=== PATIENT | female | born 1945 | race Hispanic/Latino ===

== ENCOUNTER 2022-03-01 09:46 | Observation (INO) | payer MEDICARE, OTHER ==
--- OUTSIDE RECORDS SUMMARY | 2022-03-01 09:49 | XMS REPORT | Continuity of Care Document ---
:1945 Author Organization [facility] t Address [address] [place] [address] Care Team Providers Name Role Phone Macario Attending Clinician Unavailable Macario Admitting Clinician Unavailable Payers Payer Name Policy Type Policy Number Effective Date Expiration Date [facility] FINXI [id number] 2021 (MEDICARE 00:00:00 REPLACEMENT HMO) [facility] [id number] (MEDICARE REPLACEMENT/[place] GE - PPO) Problems Condition Condition Condition Status Onset Resolution Last Treating Co mments Source Name Details Category Date Date Treatment Clinician Date Gastroesop Gastroeso Problem Active 2021-04-03 Memoria hageal phageal 02:49:21 l reflux reflux Jie disease disease without without esophagiti esophagiti s s Active Problem 04/03/2021 [facility] Other Other Problem Active 2021-04-03 Memor ia chronic chronic 02:49:21 l pain pain [place] Active Problem 04/03/2021 [facility] Insomnia, Insomnia, Problem Active 2021-04-03 Memoria unspecifie unspecifie 02:49:21 l d type d type [place] Active Problem 04/03/2021 [facility] Unspecifie Unspecifi Problem Active 2021-04-03 Memoria d cardiac ed cardiac 02:49:21 l device in device in Herm lynette situ situ Active Problem 04/03/2021 [facility] Thyroid Thyroid Problem Active 2021-04-03 Me moria mass mass 02:49:21 l Active [place] Problem 04/03/2021 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 02:49:21 l artery, artery, [place] unspecifie unspecifie d d laterality laterality Active Problem 04/03/2021 [facility] Malignant Malignant Problem Active 2021-04-03 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:49:21 l heart heart Jie disease, disease, w/o CHF, w/o CHF, with with chronic chronic kidney kidney disease disease Active Problem 04/03/2021 [facility] Status Status Problem Active 2021-04-03 Terrell jacqueline post post 02:49:21 l gastric gastric [place] bypass for bypass for obesity obesity Active Problem 04/03/2021 [facility] Presence Presence Problem Active 2021-04-03 Memoria of of 02:49:21 l coronary coronary Arash n angioplast angioplast y implant y implant and graft and graft Active Problem 04/03/2021 [facility] Syncope, Syncope, Problem Active 2021-04-03 Memoria unspecifie unspecifie 02:49:21 l d syncope d syncope Herm lynette type type Active Problem 04/03/2021 [facility] Status Status Problem Active 2021-04-03 Terrell jacqueline post post 02:49:21 l placement placement Herm lynette of of implantabl implantabl e loop e loop recorder recorder Active Problem 04/03/2021 [facility] 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 without without angina angina pectoris pectoris Active Problem 04/03/2021 [facility] Closed Closed Diagnosis Active 2019-10-13 Me moria fracture fracture 02:51:16 l of of Jie multiple multiple ribs of ribs of left side, left side, initial initial encounter encounter Active Diagnosis 10/13/2019 [facility] Vitamin D Vitamin D Problem Active 2021-04-03 Memoria deficiency deficiency 02:49:21 l Active Jie Problem 04/03/2021 [facility] Borderline Borderlin Problem Active 2021-04-03 Memoria hyperchole e 02:49:21 l sterolemia hyperchole He rmann sterolemia Active Problem 04/03/2021 [facility] Encounter Encounter Problem Active 2021-04-03 Memoria for for 02:49:21 l general general [place] adult adult medical medical examinatio examinatio n without n without abnormal abnormal findings findings Active Problem 04/03/2021 [facility] B12 B12 Diagnosis Active 2021-04-03 Mem oria deficiency deficiency 02:49:21 l Active [place] Diagnosis 04/03/2021 [facility] Skin Skin Diagnosis Active 2019-10-13 Mem oria lesion lesion 02:48:47 l Active [place] Diagnosis 10/13/2019 [facility] Cerumen Cerumen Diagnosis Active 2020-12-21 Memoria impaction impaction 02:45:33 l Active [place] Diagnosis 12/21/2020 [facility] Abnormal Abnormal Diagnosis Active 2020-12-21 Memoria EKG EKG Active 02:45:33 l Diagnosis Arash n 12/21/2020 [facility] Foot Foot Diagnosis Active 2020-12-21 Mem oria swelling swelling 02:48:06 l Active Jie Diagnosis 12/21/2020 [facility] Tremor Tremor Diagnosis Active 2020-12-21 Me moria Active 02:48:06 l Diagnosis Jie 12/21/2020 [facility] Hospital Hospital Diagnosis Active 2019-10-13 Memoria discharge discharge 02:51:16 l follow-up follow-up Herm lynette Active Diagnosis 10/13/2019 [facility] Low back Low back Diagnosis Active 2020-11-03 Memoria pain pain 02:46:29 l Active [place] Diagnosis 11/03/2020 [facility] Encounter Diagnosis Active 2018-11-24 Memoria to Encounter 02:46:13 l establish to [place] care establish care Active Diagnosis 11/24/2018 [facility] Nausea Nausea Diagnosis Active 2018-11-25 Me moria Active 02:49:53 l Diagnosis Jie 11/25/2018 [facility] Left hip Left hip Diagnosis Active 2018-11-25 Memoria pain pain 02:48:04 l Active [place] Diagnosis 11/25/2018 [facility] Left knee Left knee Diagnosis Active 2018-11-25 Memoria pain, pain, 02:48:04 l unspecifie unspecifie He rmlynette d d chronicity chronicity Active Diagnosis 11/25/2018 [facility] Encounter Encounter Diagnosis Active 2019-10-11 Memoria for for 02:58:10 l screening screening Herm lynette for for malignant malignant neoplasm neoplasm of colon of colon Active Diagnosis 10/11/2019 [facility] At risk At risk Diagnosis Active 2019-10-11 Memoria for bone for bone 02:58:10 l density density Jie loss loss Active Diagnosis 10/11/2019 [facility] Insect Insect Diagnosis Active 2020-11-03 Me moria bite bite 02:45:56 l Active Jie Diagnosis 11/03/2020 [facility] Exposure Exposure Diagnosis Active 2020-11-02 Memoria to SARS to SARS 02:45:26 l virus virus [place] Active Diagnosis 11/02/2020 [facility] Screening Screening Diagnosis Active 2020-11-03 Memoria for for 02:46:29 l diabetes diabetes Arash n mellitus mellitus Active Diagnosis 11/03/2020 [facility] Encounter Encounter Diagnosis Active 2020-11-03 Memoria for for 02:46:29 l screening screening Herm lynette mammogram mammogram for breast for breast cancer cancer Active Diagnosis 11/03/2020 [facility] Encounter Encounter Diagnosis Active 2020-11-03 Memoria for for 02:46:29 l vaccinatio vaccinatio He rmann n n Active Diagnosis 11/03/2020 [facility] Essential Essential Diagnosis Active 2021-04-03 Memoria hypertensi hypertensi 02:49:21 l on on Active Jie Diagnosis 04/03/2021 [facility] Allergies, Adverse Reactions, Alerts Allergy Allergy Status Severity Reaction(s) Onset Inactive Treating Comm ents Source Name Type Date Date Clinician Sulfur Sulfur Active Info Not Memoria Available - l 00:00: Jie 00 Pentazoc Pentazoc Active Info Not Terrell jacqueline ine-APAP ine-APAP Available - l 00:00: Jie 00 Penicill Penicill Active Info Not Terrell jacqueline in V in V Available 12-01 l Potassiu Potassiu 00:00: Arash molina m m Butalbit Butalbit Active Info Not Terrell jacqueline al-APAP- al-APAP- Available 12-01 l Caffeine Caffeine 00:00: Arash n 00 Tramadol Tramadol Active Info Not Terrell jacqueline HCl HCl Available 03-12 l 00:00: Codeine Codeine Active Info Not Memori a Sulfate Sulfate Available 03-12 l 00:00: Medications Ordered Filled Start Stop Current Ordering Indication Dosage Frequency Signature Comments Components Source Medication Medication Date Date Medication? Clinician (SIG) Name Name Zoljeffdem 2020-07 Yes Niraj 1 tablet Terrell jacqueline Tartrate ER 0-03 Felipe at bedtime l 02:49: as needed Lisinopril 2020-07 Yes Niraj 1 tablet Me moria 0-03 Felipe l 02:49: Carvedilol 2020-07 Yes Niraj 1 tablet Me moria 0-03 Felipe l 02:49: Trazodone 2020-07 Yes Niraj 1-2 tablet M emoria HCl 0-03 Felipe at bedtime l 02:49: as needed NIFEdipine 2020-07 Yes Niraj 1 tablet Me moria ER 0-03 Felipe on an l 02:49: empty stomach Pantoprazol 2020-07 Yes Niraj 1 tablet M emoria e Sodium 0-03 Felipe l 02:49: Tramadol 2020-07 Yes Niraj 1 tablet Terrell jacqueline HCl 0-03 Felipe as needed l 02:49: CloNIDine 2020-07 Yes Niraj Apply 1 Terrell jacqueline 0-03 Felipe patch to l 02:49: the skin once a week Clonidine 2020-07 Yes Niraj 1 patch to M emoria HCl 0-03 Felipe skin l 02:49: [place] 21 Aspirin 2020-07 Yes Niraj 1 tablet Memor ia Adult Low 0-03 Felipe l Dose 02:49: Jie 21 Vitamin D3 Yes Niraj 2 tablets M emoria 6-22 Felipe l 02:45: Jie 33 Cyanocobala 2020-0 Yes Niraj inject 1 M emoria min 5-28 Felipe ml l 00:00: Hydrocodone 2020-0 Yes Niraj 1/2-1 Terrell jacqueline -Acetaminop 4-03 Felipe tablet as l hen 00:00: needed Tizanidine 2020-0 Yes Niraj 1 tablet Me moria HCl 4-03 Felipe as needed l 00:00: Vitamin D3 2020-0 Yes Niraj 2 tablets M emoria 3-17 Felipe l 00:00: Hydrocodone 2020-0 Yes Niraj 1 tablet M emoria -Acetaminop 8-11 Felipe as needed l hen 00:00: Lidocaine 2019-0 Yes Niraj as Memoria Pain Relief 8-11 Felipe directed l 00:00: Acetaminoph 2019-0 Yes Yumiko 1 tablet Me moria en-Codeine 4-13 G[place] as needed l #3 02:51: Jie 16 Pantoprazol 2020-0 Yes Yumiko 1 tablet Me moria e Sodium 4-13 Gannon l 02:51: [place] 16 Trazodone 2020-0 Yes Yumiko 1-2 tablet Me moria HCl 4-13 Gannon at bedtime l 02:51: as needed Jie 16 Lisinopril 2020-0 Yes Yumiko 1 tablet Mem oria 4-13 Gannon l 02:51: Jie 16 Cyanocobala 2020-0 Yes Yumiko 1 ml Memori a min 4-13 Gannon l 02:48: Jie 47 Tizanidine 2020-0 Yes Yumiko 1 tablet Mem oria HCl 4-11 Gannon as needed l 02:58: Jie 10 Cyanocobala 2020-0 Yes Yumiko 1 ml Memori a min 1-26 Gannon l 00:00: Acetaminoph 2018-1 Yes Yumiko 1 tablet Me moria en-Codeine 1-06 [place] as needed l #3 00:00: Triamcinolo 2019-0 Yes Niraj 1 Memor ia ne 9-11 Felipe applicatio l Acetonide 00:00: n to affected area Tizanidine 2019-0 Yes Yumiko 1 tablet Mem oria HCl 7-20 [place] as needed l 00:00: Tramadol 2019-0 Yes Yumkio 1 tablet Memor ia HCl 6-20 [place] as needed l 00:00: Tizanidine 2019-0 Yes Yumiko 1 tablet Mem oria HCl 5-18 [place] as needed l 00:00: Tramadol 2019-0 Yes Yumiko 1 tablet Memor ia HCl 5-17 [place] as needed l 00:00: Tramadol 2019-0 Yes Yumiko 1 tablet Memor ia HCl 4-25 [place] as needed l 00:00: Tramadol 2019-0 Yes Yumiko 1 tablet Memor ia HCl 3-07 [place] as needed l 00:00: Pantoprazol 2019-0 Yes Yumiko 1 tablet Me moria e Sodium 2-25 Gannon l 00:00: Immunizations Ordered Immunization Filled Immunization Date Status Commen ts Source Name Name High Dose Influenza 2020-02-27 Completed Memor ial (65 and above) 00:00:00 [place] Tdap 2020-02-27 Completed [facility] 00:00:00 [place] Vital Signs Vital Name Observation Time Observation Value Comments Source Weight 2020-12-01 19:00:00 [facility] Height 2020-12-01 19:00:00 [facility] Jie Diastolic (mm Hg) 2020-12-01 19:00:00 [facility] orial [place] Systolic (mm Hg) 2020-12-01 19:00:00 Terrell rial Jie Weight 2020-10-25 15:30:00 [facility] Height 2020-10-25 15:30:00 [facility] Jie Diastolic (mm Hg) 2020-10-25 15:30:00 Mem orial Jie Systolic (mm Hg) 2020-10-25 15:30:00 Terrell rial [place] Systolic (mm Hg) 2020-05-18 20:00:00 Terrell rial Jie Weight 2020-05-18 20:00:00 [facility] Height 2020-05-18 20:00:00 [facility] Temperature Oral (F) 2020-05-18 20:00:00 97.9 F [facility] [place] Heart Rate 2020-05-18 20:00:00 [facility] [place] Diastolic (mm Hg) 2020-05-18 20:00:00 Mem orial Jie Weight 2020-03-03 15:10:00 [facility] J[place] Height 2020-03-03 15:10:00 [facility] [place] Weight 2020-02-27 15:00:00 [facility] J[place] Height 2020-02-27 15:00:00 [facility] [place] Temperature Oral (F) 2020-02-27 15:00:00 98.1 F [facility] [place] Heart Rate 2020-02-27 15:00:00 [facility] Jie Diastolic (mm Hg) 2020-02-27 15:00:00 Mem orial Jie Systolic (mm Hg) 2020-02-27 15:00:00 Terrell rial [place] Weight 2020-02-10 15:40:00 [facility] Jie Height 2020-02-10 15:40:00 [facility] J[place] Temperature Oral (F) 2020-02-10 15:40:00 98.0 F [facility] [place] Heart Rate 2020-02-10 15:40:00 [facility] [place] Diastolic (mm Hg) 2020-02-10 15:40:00 Mem orial [place] Systolic (mm Hg) 2020-02-10 15:40:00 Terrell rial [place] Weight 2019-04-28 19:00:00 [facility] [place] Height 2019-04-28 19:00:00 [facility] [place] Heart Rate 2019-04-28 19:00:00 [facility] [place] Diastolic (mm Hg) 2019-04-28 19:00:00 Mem orial Jie Systolic (mm Hg) 2019-04-28 19:00:00 Terrell rial [place] Weight 2019-03-12 19:40:00 [facility] Jie Height 2019-03-12 19:40:00 [facility] [place] Temperature Oral (F) 2019-03-12 19:40:00 97.8 F [facility] J[place] Heart Rate 2019-03-12 19:40:00 [facility] [place] Diastolic (mm Hg) 2019-03-12 19:40:00 Mem orial Jie Systolic (mm Hg) 2019-03-12 19:40:00 Terrell rial [place] Weight 2018-12-26 19:40:00 [facility] [place] Height 2018-12-26 19:40:00 [facility] [place] Heart Rate 2018-12-26 19:40:00 [facility] Jie Diastolic (mm Hg) 2018-12-26 19:40:00 Mem orial Jie Systolic (mm Hg) 2018-12-26 19:40:00 Terrell rial [place] Weight 2018-11-18 16:20:00 [facility] Jie Height 2018-11-18 16:20:00 [facility] [place] Temperature Oral (F) 2018-11-18 16:20:00 97.1 F [facility] Jie Heart Rate 2018-11-18 16:20:00 [facility] Jie Diastolic (mm Hg) 2018-11-18 16:20:00 Mem orial [place] Systolic (mm Hg) 2018-11-18 16:20:00 Terrell rial Jie Weight 2018-10-17 19:00:00 [facility] Jie Height 2018-10-17 19:00:00 [facility] Jie Heart Rate 2018-10-17 19:00:00 [facility] Jie Diastolic (mm Hg) 2018-10-17 19:00:00 Mem orial [place] Systolic (mm Hg) 2018-10-17 19:00:00 Terrell rial Jie Weight 2018-08-30 16:00:00 [facility] Jie Height 2018-08-30 16:00:00 [facility] Jie Temperature Oral (F) 2018-08-30 16:00:00 98.1 F [facility] Jie Heart Rate 2018-08-30 16:00:00 [facility] Jie Diastolic (mm Hg) 2018-08-30 16:00:00 Mem orial [place] Systolic (mm Hg) 2018-08-30 16:00:00 Terrell rial [place] Weight 2018-08-21 19:00:00 [facility] Jie Height 2018-08-21 19:00:00 [facility] [place] Heart Rate 2018-08-21 19:00:00 [facility] Jie Diastolic (mm Hg) 2018-08-21 19:00:00 Mem orial [place] Systolic (mm Hg) 2018-08-21 19:00:00 Terrell rial Jie Procedures This patient has no known procedures. Encounters Start End Encounter Admission Attending Care Care Encounter Source Date/Time Date/Time Type Type Clinicians Facility Department ID 2022-03-01 Outpatient [id number] Memoria 09:48:19 [id number] [place] [id number] 2022-01-13 2022-01-13 Outpatient DMG DMG [id number] [facility] 07:21:00 07:21:00 [id number] Medica l Group 2021-11-10 2021-11-10 Outpatient DMG [facility] [id number]- [facility] 12:00:00 12:00:00 [id number] Medica l Group 2021-01-13 2021-01-13 Outpatient Nguyen_Thie VFP VFP [id number] [facility] 04:31:00 04:31:00 n [id number] Family Practic e 2021-01-13 2021-01-13 Outpatient Nguyen_Thie VFP VFP [id number] [facility] 04:31:00 04:31:00 n [id number] Family Practic e 2021-01-13 2021-01-13 Outpatient Nguyen_Thie VFP VFP [id number] [facility] 04:31:00 04:31:00 n [id number] Family Practic e 2020-12-17 2020-12-17 [facility] [id number] 14:33:00 14:33:00 [facility] 2020-12-06 2020-12-06 [facility] [id number] 16:24:00 16:24:00 [facility] I 2020-12-01 2020-12-01 [facility] [id number] [facility] 14:00:00 14:00:00 [facility] I 2020-11-25 2020-11-25 [facility] [id number] [facility] 10:52:00 10:52:00 [facility] I 2020-11-15 2020-11-15 [facility] [id number] [facility] 09:13:00 09:13:00 [facility] I 2020-10-25 2020-10-25 [facility] [id number] [facility] 10:30:00 10:30:00 [facility] I 2020-10-02 2020-10-02 [facility] [id number] [facility] 09:40:00 09:40:00 [facility] I 2020-09-30 2020-09-30 [facility] [id number] 11:09:00 11:09:00 [facility] I 2020-09-30 2020-09-30 [facility] [id number] [facility] 11:06:00 11:06:00 [facility] I 2020-09-29 2020-09-29 [facility] [id number] [facility] 16:09:00 16:09:00 [facility] I 2020-06-03 2020-06-03 [facility] [id number] 13:13:00 13:13:00 [facility] I 2020-05-18 2020-05-18 [facility] [id number] [facility] 15:00:00 15:00:00 [facility] I 2020-03-10 2020-03-10 Outpatient [facility] [id number] eClinic 14:05:00 14:05:00 JIE JIE alWork s [place] 2020-03-10 2020-03-10 [facility] [id number] [facility] 13:40:00 13:40:00 [facility] I 2020-03-03 2020-03-03 [facility] [id number] [facility] 10:10:00 10:10:00 [facility] I 2020-02-27 2020-02-27 [facility] [id number] [facility] 10:00:00 10:00:00 [facility] I 2020-02-16 2020-02-16 Outpatient [facility] [id number] eClinic 15:37:00 15:37:00 JIE JIE alWork s [place] 2020-02-13 2020-02-13 [facility] [id number] [facility] 11:17:00 11:17:00 [facility] I 2020-02-10 2020-02-10 Outpatient [facility] [id number] eClinic 11:09:00 11:09:00 JIE JIE alWork s [place] 2020-02-10 2020-02-10 [facility] [id number] [facility] 10:40:00 10:40:00 [facility] I 2019-06-03 2019-06-03 [facility] [id number] [facility] 13:52:00 13:52:00 [facility] I 2019-05-02 2019-05-02 [facility] [id number] [facility] 12:58:00 12:58:00 [facility] I 2019-05-02 2019-05-02 [facility] [id number] [facility] 09:13:00 09:13:00 [facility] I 2019-04-28 2019-04-28 [facility] [id number] [facility] 14:00:00 14:00:00 [facility] I 2019-04-22 2019-04-22 Emergency [facility] [id number] Memoria 10:49:00 10:49:[address] [facility] 2019-03-12 2019-03-12 [facility] [id number] [facility] 14:40:00 14:40:00 [facility] I 2019-01-13 2019-01-13 [facility] [id number] [facility] 08:47:00 08:47:00 [facility] I 2018-12-26 2018-12-26 [facility] [id number] [facility] 14:40:00 14:40:00 [facility] I 2018-12-19 2018-12-19 [facility] [id number] [facility] 09:42:00 09:42:00 [facility] I 2018-11-18 2018-11-18 [facility] [id number] [facility] 11:20:00 11:20:00 [facility] I 2018-11-15 2018-11-15 [facility] [id number] [facility] 09:25:00 09:25:00 [facility] I 2018-11-13 2018-11-13 [facility] [id number] [facility] 13:03:00 13:03:00 [facility] I 2018-10-29 2018-10-29 [facility] [id number] [facility] 13:47:00 13:47:00 [facility] I 2018-10-17 2018-10-17 [facility] [id number] [facility] 14:00:00 14:00:00 [facility] I 2018-10-14 2018-10-14 [facility] [id number] [facility] 08:43:00 08:43:00 [facility] I 2018-09-23 2018-09-23 [facility] [id number] [facility] 16:15:00 16:15:00 [facility] I 2018-09-17 2018-09-17 [facility] [id number] [facility] 16:24:00 16:24:00 [facility] I 2018-09-17 2018-09-17 [facility] [id number] [facility] 16:13:00 16:13:00 [facility] I 2018-09-06 2018-09-06 [facility] [id number] [facility] 15:27:00 15:27:00 [facility] I 2018-08-30 2018-08-30 [facility] [id number] [facility] 11:00:00 11:00:00 [facility] I 2018-08-26 2018-08-26 [facility] [id number] [facility] 12:07:00 12:07:00 [facility] I 2018-08-21 2018-08-21 [facility] [id number] [facility] 14:00:00 14:00:00 [facility] I Results This patient has no known results.
--- NOTE | 2022-03-01 10:53 | RAD REPORT ---
EXAM DESCRIPTION: CT - [id number] - 03/01/2022 10:23 am CLINICAL HISTORY: Trauma, head and neck injury. fall COMPARISON: No comparisons TECHNIQUE: Axial 5 mm thick images of the head were obtained. Axial 2 mm thick images of the cervical spine were obtained with sagittal and coronal reconstruction images generated and reviewed. All CT scans are performed using dose optimization technique as appropriate and may include automated exposure control or mA/KV adjustment according to patient size. FINDINGS: CT HEAD WITHOUT CONTRAST: No acute hemorrhage, hydrocephalus or extra-axial collection is identified.Mild periventricular chron ic microvascular ischemic changes.No areas of brain edema or midline shift. The paranasal sinuses and mastoids are clear.The calvarium is intact. CT CERVICAL SPINE WITHOUT CONTRAST: No fracture or subluxation.No prevertebral soft tissues swelling is identified. Bilateral carotid ath erosclerosis. IMPRESSION: No acute intracranial or cervical spine findings.
--- NOTE | 2022-03-01 10:54 | RAD REPORT ---
EXAM DESCRIPTION: RAD - Chest Pa And Lat (2 Views) - 03/01/2022 10:48 am CLINICAL HISTORY: PAIN Chest pain. COMPARISON: No comparisons TECHNIQUE: PA and lateral views of the chest were obtained. FINDINGS: The lungs are hyperexpanded compatible with COPD. The heart is upper limit of normal in si ze. Moderate hiatal hernia. No fracture or aggressive bony process. Prominent osteopenia. IMPRESSION: COPD without acute process identified.
[2022-03-01 11:22] LABS: Absolute Lymphocytes (CBC) 0.6 K/uL (0.7-4.9); Hematocrit 34.3 % (36.0-45.0); Lymphocytes % 7.8 % (15.3-44.8); MCV 90.4 fL (80-100); MPV 8.6 fL (7.6-11.3); RBC Red Blood Cell Count 3.79 M/uL (3.86-4.86)
--- NOTE | 2022-03-01 11:31 | RAD REPORT ---
EXAM DESCRIPTION: RAD - Hand Left 3 View - 03/01/2022 10:48 am CLINICAL HISTORY: PAIN COMPARISON: No comparisons FINDINGS: Prominent diffuse osteopenia. Significant radiocarpal arthritic changes. Heavy vascular ca lcification. No acute fracture or dislocation.
--- NOTE | 2022-03-01 11:32 | RAD REPORT ---
EXAM DESCRIPTION: RAD - Knee Left 3 View - 03/01/2022 10:48 am CLINICAL HISTORY: PAIN COMPARISON: No comparisons FINDINGS: Prominent diffuse osteopenia. No acute fracture or dislocation. Mild soft tissue swelling is seen anterior to the knee. Atherosclerosis.
--- NOTE | 2022-03-01 11:33 | RAD REPORT ---
EXAM DESCRIPTION: RAD - Hip Left 2 View - 03/01/2022 10:48 am CLINICAL HISTORY: PAIN COMPARISON: No comparisons FINDINGS: Diffuse osteopenia is seen. There is subtle sclerosis seen at the junction of the left fem oral head and neck. This can indicate impacted fracture if the patient has significant left hip pain or difficulty with weight-bearing. Otherwise, there is no fracture evident.
[2022-03-01 11:42] LABS: Bilirubin Direct 0.2 mg/dL (0-0.2); Bilirubin Total 0.5 mg/dL (0.2-1.0); Magnesium 1.9 mg/dL (1.8-2.4); Potassium 5.2 mmol/L (3.5-5.1); Protein, Total 6.3 g/dL (6.4-8.2)
[2022-03-01 11:53] LABS: Troponin High Sensitivity 374.8 pg/mL (<58.9)
--- NOTE | 2022-03-01 12:05 | ER ---
Nurse's Notes [facility] Name: Meri Anderson Age: 76 yrs Sex: Female : 1945 Arrival Date: 03/01/2022 Time: 09:46 Bed 24 Private MD: Diagnosis: Syncope;Elevated troponin;Renal Insufficiency;Elevated potassium Presentation: 03/01 09:47 Chief complaint: EMS states: LEFT HIP/RIB/KNEE PAIN AFTER FALL LAST PM. Coronavirus bp screen: At this time, the client does not indicate any symptoms associated with coronavirus-19. Ebola Screen: No symptoms or risks identified at this time. Initial Sepsis Screen: Does the patient meet any 2 criteria? No. Patient's initial sepsis screen is negative. Does the patient have a suspected source of infection? No. Patient's initial sepsis screen is negative. Risk Assessment: Do you want to hurt yourself or someone else? Patient reports no desire to harm self or others. Onset of symptoms is unknown. 09:47 Method Of Arrival: EMS: [facility] bp 09:47 Acuity: LORENZO 3 bp Triage Assessment: 09:48 General: Appears in no apparent distress. uncomfortable, Behavior is calm, cooperative, bp appropriate for age. Pain: Complains of pain in left hip. EENT: No deficits noted. Neuro: No deficits noted. Cardiovascular: No deficits noted. Respiratory: No deficits noted. GI: No signs and/or symptoms were reported involving the gastrointestinal system. : No signs and/or symptoms were reported regarding the genitourinary system. Derm: No deficits noted. Musculoskeletal: No deficits noted. Historical: - Allergies: 09:48 No Known Allergies; bp - Home Meds: 09:48 Lisinopril Oral [Active]; Nifedipine Oral [Active]; pantoprazole oral [Active]; bp carvedilol oral [Active]; tizanidine oral [Active]; Carbidopa-Levodopa Oral [Active]; Tramadol Oral [Active]; - PMHx: 09:48 Hypertensive disorder; Osteoporosis; bp - Immunization history:: Adult Immunizations up to date. - Social history:: Smoking status: Patient denies any tobacco usage or history of. Screenin:51 Abuse screen: Denies threats or abuse. Denies injuries from another. Nutritional bp screening: No deficits noted. Tuberculosis screening: No symptoms or risk factors identified. Fall Risk Fall in past 12 months (25 points). No secondary diagnosis (0 pts). No IV (0 pts). Ambulatory Aid- None/Bed Rest/Nurse Assist (0 pts). Gait- Weak (10 pts.). Mental Status- Oriented to own ability (0 pts). Total Bustamante Fall Scale indicates Low Risk Score (25-44 pts). Fall prevention measures have been instituted. Side Rails Up X 2 Placed close to Nursing Station Frequent Obs/Assesments occuring. Assessment: 09:50 General: SEE TRIAGE NOTE. bp 12:31 Reassessment: ADMIT INITIATED. TROPONIN POSITIVE. bp Vital Signs: 09:47 BP 133 / 97; Pulse 84; Resp 16; Temp 98; Pulse Ox 97% ; bp 12:31 BP 112 / 47; Pulse 64; Resp 16; Pulse Ox 97% ; bp 13:07 BP 122 / 51 Supine; Pulse 70 MON; hb 13:10 BP 113 / 61 Sitting; Pulse 75 MON; hb 13:12 BP 109 / 52 Standing; Pulse 72 MON; hb ED Course: 09:46 Patient arrived in ED. bp 09:48 Triage completed. bp 09:48 Alfredito Grimes DO is Attending Physician. ms3 09:48 Arm band placed on. bp 09:52 Patient has correct armband on for positive identification. Bed in low position. Call bp light in reach. Side rails up X2. 10:01 Compa Martin, RN is Primary Nurse. bp 10:24 CT Head C Spine In Process Unspecified. EDMS 10:28 EKG done, by ED staff, reviewed by Alfredito Grimes DO. jw7 10:29 Warm blanket given. jw7 10:50 Hand Left 3 View XRAY In Process Unspecified. EDMS 10:50 Chest Pa And Lat (2 Views) XRAY In Process Unspecified. EDMS 10:50 Hip Left 2 View XRAY In Process Unspecified. EDMS 10:50 Knee Left 3 View XRAY In Process Unspecified. EDMS 11:00 Inserted saline lock: 22 gauge in right antecubital area, using aseptic technique. bp Blood collected. 12:03 Dominguez Aquino MD is Hospitalizing Provider. ms3 12:11 Cyril Alonso MD is Hospitalizing Provider. ms3 18:55 No provider procedures requiring assistance completed. Patient admitted, IV remains in bp place. Administered Medications: No medications were administered Medication: 18:55 VIS not applicable for this client. bp Outcome: 12:04 Decision to Hospitalize by Provider. ms3 18:55 Admitted to ER Hold. Please see [facility] for further documentation. bp 18:55 Condition: stable 18:55 Instructed on the need for admit. 22:50 Patient left the ED. vc1 Signatures: Dispatcher [employer] EDMS Constance Madison RN RN hb Compa Martin RN RN bp Alfredito Grimes DO DO ms3 Yareli Ash RN RN vc1 Kylie Sol jw7 Corrections: (The following items were deleted from the chart) 13:45 13:10 BP 113 / 61; Pulse 75bpm; Monitor; hb hb 13:45 13:12 BP 109 / 52; Pulse 72bpm; Monitor; hb hb
--- NOTE | 2022-03-01 12:05 | EDPHYS ---
Physician Documentation [facility] Name: Meri Anderson Age: 76 yrs Sex: Female : 1945 Arrival Date: 03/01/2022 Time: 09:46 Bed 24 Private MD: ED Physician Alfredito Grimes HPI: 03/01 10:01 This 76 yrs old Female presents to ER via EMS with complaints of Fall Injury. ms3 10:01 Details of fall: The patient fell from an upright position, while standing. 76-year-old ms3 female with past medical history of hypertension and osteoporosis presents via [facility] status post fall last night. Patient complaining of left chest pain, left hand pain. Patient states pain is moderate. Patient denies alleviating or inciting factors. Patient denies nausea, vomiting. Patient endorses loss of consciousness prior to falling. Patient states she awoke staring at the ceiling on the floor after feeding her cats.. Historical: - Allergies: 09:48 No Known Allergies; bp - Home Meds: 09:48 Lisinopril Oral [Active]; Nifedipine Oral [Active]; pantoprazole oral [Active]; bp carvedilol oral [Active]; tizanidine oral [Active]; Carbidopa-Levodopa Oral [Active]; Tramadol Oral [Active]; - PMHx: 09:48 Hypertensive disorder; Osteoporosis; bp - Immunization history:: Adult Immunizations up to date. - Social history:: Smoking status: Patient denies any tobacco usage or history of. ROS: 10:01 Constitutional: Negative for fever, and chills. Neck: Negative for injury, pain, and ms3 swelling, Cardiovascular: Negative for chest pain, and palpitations. Respiratory: Negative for shortness of breath, cough, wheezing, and pleuritic chest pain, Abdomen/GI: Negative for abdominal pain, nausea, vomiting, diarrhea, and constipation. 10:01 MS/Extremity: Negative for injury and deformity. 10:01 Cardiovascular: 10:01 Neuro: Positive for syncope. 10:01 All other systems are negative. Exam: 10:01 Constitutional: This is a well developed, well nourished patient who is awake, alert, ms3 and in no acute distress. Head/Face: Normocephalic, atraumatic. Neck: Trachea midline, no cervical lymphadenopathy. Supple, full range of motion without nuchal rigidity, or vertebral point tenderness. No Meningismus. Chest/axilla: Normal chest wall appearance and motion. Nontender with no deformity. 10:01 Abdomen/GI: Soft, non-tender, with normal bowel sounds. No distension or tympany. No guarding or rebound. No evidence of tenderness throughout. Skin: Warm, dry with normal turgor. Normal color with no rashes, no lesions, and no evidence of cellulitis. Psych: Awake, alert, with orientation to person, place and time. Behavior, mood, and affect are within normal limits. 10:01 Chest/axilla: Inspection: normal, Palpation: tenderness, that is moderate, of the left lateral posterior chest. 10:01 Musculoskeletal/extremity: Left hand with tenderness palpation over 1st metacarpal. 12:00 ECG was reviewed by the Attending Physician. ms3 Vital Signs: 09:47 BP 133 / 97; Pulse 84; Resp 16; Temp 98; Pulse Ox 97% ; bp 12:31 BP 112 / 47; Pulse 64; Resp 16; Pulse Ox 97% ; bp 13:07 BP 122 / 51 Supine; Pulse 70 MON; hb 13:10 BP 113 / 61 Sitting; Pulse 75 MON; hb 13:12 BP 109 / 52 Standing; Pulse 72 MON; hb MDM: 09:56 Patient medically screened. ms3 10:04 Differential diagnosis: closed head injury, contusion, fracture, sprain, strain. ms3 12:00 Data reviewed: vital signs, nurses notes, lab test result(s), EKG, radiologic studies, ms3 and as a result, I will admit patient. Data interpreted: route rider: rate is 72 beats/min, rhythm is normal sinus rhythm, regular, with no ectopy, Interpretation: normal rate, normal rhythm. Counseling: I had a detailed discussion with the patient and/or guardian regarding: the historical points, exam findings, and any diagnostic results supporting the discharge/admit diagnosis, lab results, radiology results, the need for further work-up and treatment in the hospital. ED course: Discussed case with Enrique, nurse practitioner, and he accepts patient on behalf of Dr. Aquino. Discussed plan for observation with patient and she understands and agrees with plan. All questions were answered.. 03/01 10:00 Order name: Basic Metabolic Panel; Complete Time: 11:54 ms3 03/01 10:00 Order name: CBC with Diff; Complete Time: 11:54 ms3 03/01 10:00 Order name: Hepatic Function; Complete Time: 11:54 ms3 03/01 10:00 Order name: Magnesium; Complete Time: 11:54 ms3 03/01 10:00 Order name: Troponin High Sensitivity; Complete Time: 11:54 ms3 03/01 12:30 Order name: SARS RAPID; Complete Time: 10:10 bd 03/01 13:01 Order name: Urine Dipstick-Ancillary; Complete Time: 10:10 EDMS 03/01 15:18 Order name: Lipid Profile; Complete Time: 10:10 EDMS 03/01 15:18 Order name: Phosphorus; Complete Time: 10:10 EDMS 03/01 15:18 Order name: NT PRO-BNP; Complete Time: 10:10 EDMS 03/01 15:18 Order name: T4 Free; Complete Time: 10:10 EDMS 03/01 15:18 Order name: Magnesium; Complete Time: 10:10 EDMS 03/01 15:18 Order name: Thyroid Stimulating Hormone; Complete Time: 10:10 EDMS 03/01 15:23 Order name: Hemoglobin A1c; Complete Time: 10:10 EDMS 03/01 10:00 Order name: EKG; Complete Time: 10:01 ms3 03/01 10:00 Order name: Cardiac monitoring; Complete Time: 13:58 ms3 03/01 10:00 Order name: EKG - Nurse/Tech; Complete Time: 10:29 ms3 03/01 10:00 Order name: IV Saline Lock; Complete Time: 13:58 ms3 03/01 10:00 Order name: Labs collected and sent; Complete Time: 13:58 ms3 03/01 10:00 Order name: NPO; Complete Time: 10:01 ms3 03/01 10:00 Order name: O2 Per Protocol; Complete Time: 10:01 ms3 03/01 10:00 Order name: O2 Sat Monitoring; Complete Time: 10:01 ms3 03/01 10:01 Order name: CT Head C Spine; Complete Time: 11:54 ms3 03/01 10:01 Order name: Hand Left 3 View XRAY; Complete Time: 11:54 ms3 03/01 10:01 Order name: Chest Pa And Lat (2 Views) XRAY; Complete Time: 11:54 ms3 03/01 10:05 Order name: Hip Left 2 View XRAY; Complete Time: 11:54 bp 03/01 10:05 Order name: Knee Left 3 View XRAY; Complete Time: 11:54 bp 03/01 15:02 Order name: US; Complete Time: 10:10 EDMS 03/01 20:36 Order name: Troponin High Sensitivity; Complete Time: 10:10 EDMS 03/01 22:09 Order name: CT; Complete Time: 10:10 EDMS 03/01 10:00 Order name: Urine Dipstick-Ancillary (obtain specimen); Complete Time: 13:01 ms3 EC:00 Rate is 74 beats/min. Rhythm is regular. QRS Leon is Normal. Left axis deviation noted. ms3 QT interval is normal. Clinical impression: NSR w/ Non-specific ST/T Changes. Interpreted by me. Reviewed by me. Administered Medications: No medications were administered Disposition Summary: 03/01/22 12:04 Hospitalization Ordered Hospitalization Status: Observation ms3 Condition: Stable ms3 Problem: new ms3 Symptoms: are unchanged ms3 Bed/Room Type: Standard ms3 Provider: Cyril Alonso(03/01/22 12:11) ms3 Location: Telemetry/MedSurg (observation)(03/01/22 19:56) Room Assignment: [facility](03/01/22 19:56) Diagnosis - Syncope ms3 - Elevated troponin ms3 - Renal Insufficiency ms3 - Elevated potassium ms3 Forms: - Medication Reconciliation Form ms3 - SBAR form ms3 Signatures: Dispatcher [employer] Maegan Malloy, RN RN Kylee Ivy RN RN ami7 Cmopa Martin, RN RN Alfredito Black DO DO ms3 Corrections: (The following items were deleted from the chart) 12:11 12:04 Dominguez Aquino ms3 ms3 17:19 12:04 Telemetry/MedSurg (observation) ms3 jl7 17:19 12:04 ms3 jl7 19:56 17:19 [facility] ER HOLD jl7 19:56 17:19 ERHOLD- jl7 cg
[2022-03-01] MEDS ORDERED: HYDROCODONE/APAP 5/325 MG TAB PO PRN (12:54)
[2022-03-01 13:01] LABS: Urine Blood Negative (Negative); Urine Glucose Negative (Negative); Urine Protein Negative (Negative); Urine Specific Gravity 1.015 (1.005-1.030); Urine pH 5.5 (5.0-7.0)
[2022-03-01] MEDS ORDERED: ACETAMINOPHEN 500 MG TAB PO PRN (13:07)
[2022-03-01] MEDS ORDERED: ONDANSETRON 4 MG/2 ML VIAL IV PRN (13:07)
--- NOTE | 2022-03-01 13:13 | P.HP ---
Certification for Inpatient Patient admitted to: Observation With expected LOS: <2 Midnights Patient will require the following post-hospital care: None Practitioner: I am a practitioner with admitting privileges, knowledge of patient current condition, hospital course, and medical plan of care. Services: Services provided to patient in accordance with Admission requirements found in Title 42 Section 412.3 of the Code of Federal Regulations <Sherie Alcazar - Last Filed: 03/01/22 19:06> Patient History Date of Service: 03/01/22 Reason for admission: Fall, Syncope History of Present Illness: Patient is a 76-year-old female with a past medical history significant for hypertension, GERD who presents with complaint of fall. Patient reported that she fell last night at home and could not get up until this morning. Patient denies hitting her head but reported loss of consciousness. Patient denies feeling dizzy before fall and cannot recall the details of her fall. Patient reported that she fell on her left side. Left hip,. Patient complains of pain in left leg, left knee\hip, left hand and low back. Patient rated pain as 8/10 in severity and described pain as aching in quality. Patient denies any other signs and symptoms. Symptoms are aggravated or relieved by nothing. Patient was able to call EMS and patient was brought to the hospital for medical evaluation. Home medications list reviewed: No - Past Medical/Surgical History Has patient received pneumonia vaccine in the past: No -: Hypertension -: GERD Past Surgical History: Reviewed- Non-Contributory - Family History Family History: Reviewed- Non-Contributory - Social History Smoking Status: Never smoker Alcohol use: No CD- Drugs: No Caffeine use: No Place of Residence: Home <MikelrajjanSeanperri Flor - Last Filed: 03/01/22 19:06> Date of Service: 03/01/22 <Cyril Alonso - Last Filed: 03/01/22 23:45> Allergies Penicillins Allergy (Verified 03/01/22 23:08) Rash Review of Systems General: Unremarkable Eyes: Unremarkable ENT: Unremarkable Respiratory: Unremarkable Cardiovascular: Unremarkable Gastrointestinal: Unremarkable Genitourinary: Unremarkable Musculoskeletal: Back Pain, Hand Pain, Leg Pain, Other (genny hip, fall ) Integumentary: Unremarkable Neurological: Unremarkable <MikelrajjanSeanperri Flor - Last Filed: 03/01/22 19:06> Physical Examination - Physical Exam General: Alert, Oriented x3, Cooperative HEENT: Atraumatic, Normocephalic, PERRLA Neck: Supple, 2+ carotid pulse no bruit, JVD not distended Respiratory: Normal air movement Cardiovascular: No edema, Normal pulses, Regular rate/rhythm Capillary refill: <2 Seconds Gastrointestinal: Normal bowel sounds, Soft and benign Musculoskeletal: Tenderness Integumentary: No rashes, No breakdown, No significant lesion, Tenderness/swelling Neurological: Normal speech, Normal tone, Sensation intact Lymphatics: No axilla or inguinal lymphadenopathy - Studies Laboratory Data (last 24 hrs) 03/01/22 11:10: WBC 7.60, Hgb 11.3 L, Hct 34.3 L, Plt Count 188 03/01/22 11:10: Sodium 137, Potassium 5.2 H, BUN 29 H, Creatinine 1.57 H, Glucose 107 H, Magnesium 1.9, Total Bilirubin 0.5, AST 25, ALT 25, Alkaline Phosphatase 71 <Sherie Alcazar - Last Filed: 03/01/22 19:06> - Studies Laboratory Data (last 24 hrs) 03/01/22 11:10: Phosphorus 2.9, Magnesium 1.8 03/01/22 11:10: Triglycerides 96, Cholesterol 153, HDL Cholesterol 50, Cholesterol/HDL Ratio 3.06 03/01/22 11:10: WBC 7.60, Hgb 11.3 L, Hct 34.3 L, Plt Count 188 03/01/22 11:10: Sodium 137, Potassium 5.2 H, BUN 29 H, Creatinine 1.57 H, Glucose 107 H, Magnesium 1.9, Total Bilirubin 0.5, AST 25, ALT 25, Alkaline Phosphatase 71 <Cyril Alonso - Last Filed: 03/01/22 23:45> Assessment and Plan - Plan --Syncope. Echocardiogram and carotid Doppler pending. We will get some understanding vital signs. Cardiology consulted. We will further recommendations. --Elevated troponin. To rule out ACS. Cardiology on board. Telemetry to monitor for any significant arrhythmia. We will continue to trend troponin levels. Further management per plant protection superintendent. --GERD. Continue Protonix. --Hypertension. Stable. We will manage BP with hydralazine as needed. --Left hip pain. X-ray concerning for impacted fracture. CT lower extremity for further evaluation. -- Left hand\left knee pain. Imaging unremarkable for any fracture or dislocation. We will manage pain with current pain medication regimen. --Osteoarthritis. Continue current pain medication regimen. --Anemia of chronic disease. H&H stable. We will continue to monitor hemoglobin and transfuse if less than 7.0. --Elevated BNP. Echocardiogram pending. Patient given less dose of Lasix. Continue supportive care. --JANNIE on CKD 3B. Nephrology consulted. Will await further recommendations. --Hyperkalemia. Kayexalate x1 dose ordered. Will reassess levels in a.m. -- DVT prophylaxis with heparin subQ. Discharge Plan: Home Plan to discharge in: 48 Hours - Advance Directives Does patient have a Living Will: No Does patient have a Durable POA for Healthcare: No Physician Review: Patient Assessed, Agree with Above Assessment and Plan Critical Care: No <Sherie Alcazar - Last Filed: 03/01/22 19:06> Physician Review: Patient Assessed, Agree with Above Assessment and Plan <Cyril Alonso - Last Filed: 03/01/22 23:45>
[2022-03-01] MEDS ORDERED: SOD POLYSTYREN SUL 15 GM/60 ML UCUP PO ONE (14:00)
[2022-03-01 14:41] LABS: SARS-CoV-2 Antigen Rapid Res Negative (Negative)
--- NOTE | 2022-03-01 15:01 | RAD REPORT ---
EXAM DESCRIPTION: USCarotid Artery Bilateral03/01/2022 2:13 pm CLINICAL HISTORY: syncope COMPARISON: None FINDINGS: The velocity of the right internal carotid artery equals 70 cm/sec. The right ICA/CCA rati o 1.1 The velocity of the left internal carotid artery equals 103 cm/sec. The left ICA/CCA ratio 1 Mild plaque is present within the carotid arteries. The vertebral arteries demonstrate antegrade flow IMPRESSION: Mild plaque within the carotid arteries without evidence of a hemodynamically significan t stenosis NASCET criteria used. Mild 0-49% stenosis Moderate 50-69% stenosis Severe 70-99% stenosis
[2022-03-01 15:17] LABS: Magnesium 1.8 mg/dL (1.8-2.4); Phosphorus 2.9 mg/dL (2.5-4.9); Thyroid Stimulating Hormone 2.59 uIU/mL (0.360-3.740)
[2022-03-01] MEDS ORDERED: HYDROCODONE/APAP 5/325 MG TAB ONE (15:36)
[2022-03-01] MEDS ORDERED: ASPIRIN EC 81 MG TAB PO ONE (15:36)
[2022-03-01] MEDS ORDERED: SOD POLYSTYREN SUL 15 GM/60 ML UCUP ONE (15:37)
[2022-03-01] MEDS: HYDROCODONE/APAP 5/325 MG TAB PO PRN ×2 (15:41→23:33)
[2022-03-01] MEDS: ASPIRIN EC 81 MG TAB PO SCH (15:41)
[2022-03-01] MEDS ORDERED: FUROSEMIDE 20 MG/ 2ML VIAL IV ONE (18:59)
[2022-03-01 19:00] VITALS: BMI 20.5
[2022-03-01] MEDS ORDERED: HEPARIN 5000 UNIT/ML 1 ML VIAL ONE (20:27)
[2022-03-01] MEDS ORDERED: FUROSEMIDE 20 MG/ 2ML VIAL ONE (20:27)
[2022-03-01] MEDS ORDERED: HEPARIN 5000 UNIT/ML 1 ML VIAL SQ SCH (21:00)
--- NOTE | 2022-03-01 22:08 | RAD REPORT ---
EXAM DESCRIPTION: CT - Hip Left Wo Con - 03/01/2022 9:53 pm CLINICAL HISTORY: Left hip pain status post fall COMPARISON: July 05, 2018 x-ray TECHNIQUE: Computed axial tomography left hip obtained with coronal and sagittal reconstruction. All CT scans are performed using dose optimization technique as appropriate and may include automated exposure control or mA/KV adjustment according to patient size. FINDINGS: Mildly displaced subcapital femoral fracture is impacted. No dislocation. Moderate left hip joint effusion. Bones are osteoporotic Prominent lucency within left femoral diaphysis, left ilium and left pubic bone. IMPRESSION: Mildly displaced subcapital left femoral fracture is impacted. Prominent lucencies may represent an infiltrative process or very prominent osteoporosis. MRI recomme nded
[2022-03-02] MEDS ORDERED: ASPIRIN 81 MG CHEWABLE TABLET PO ONE (00:52)
[2022-03-02] MEDS: ASPIRIN EC 81 MG TAB PO SCH (00:52)
[2022-03-02] MEDS: HYDRALAZINE HCL 20 MG/ML VIAL IV PRN ×2 (06:20→12:07)
[2022-03-02 06:28] LABS: Absolute Lymphocytes (CBC) 1.3 K/uL (0.7-4.9); Hematocrit 33.8 % (36.0-45.0); Lymphocytes % 20.4 % (15.3-44.8); MCV 90.2 fL (80-100); MPV 8.8 fL (7.6-11.3); RBC Red Blood Cell Count 3.75 M/uL (3.86-4.86)
[2022-03-02] MEDS ORDERED: PANTOPRAZOLE 40MG TABLET PO SCH (06:30)
[2022-03-02 06:37] LABS: Potassium 4.7 mmol/L (3.5-5.1)
[2022-03-02 08:46] VITALS: O2SAT 98
[2022-03-02] MEDS ORDERED: MAGNESIUM SULFATE 1 gm IVPB 1 GM/100 ML BAG IV ONE (09:00)
[2022-03-02] MEDS ORDERED: ENOXAPARIN 100 MG/ML SYR SQ SCH (09:00)
[2022-03-02] MEDS ORDERED: ENOXAPARIN 60 MG/0.6 ML SQ SCH (09:00)
[2022-03-02] MEDS: HYDROCODONE/APAP 5/325 MG TAB PO PRN (09:52)
--- NOTE | 2022-03-02 11:43 | P.CNS ---
Date of Consult: 03/02/22 Reason for Consult: Renal insufficiency Requesting Physician: Cyril Alonso Chief Complaint: Fall, Syncope History of Present Illness: Patient is a 76-year-old female with a past medical history significant for hypertension and some chronic back pain came in yesterday after a fall at home. Pt deneis loss of consciousness but apparently was down for some time. Pt denies symptoms preceding fall such as dizziness, lightheadedness or palpitations. Patient had an extensive trauma w/u in the ER which revealed on the hip CT a mildly displaced subcapital left femoral fracture. She was admitted in the setting of troponin leak, renal insufficiency and other. Pt denies knowledge of any underlying CKD or renal issues. Allergies Penicillins Allergy (Verified 03/01/22 23:08) Rash Home Medications: Carbidopa/Levodopa [Sinemet 25-100 mg Tablet] 2 tab PO TID 03/02/22 Carvedilol [Coreg] 25 mg PO BID 03/02/22 Lisinopril [Zestril] 40 mg PO DAILY 03/02/22 Mecobalamin [B12 Active] 1 mg PO DAILY 03/02/22 Pantoprazole [Protonix Tab*] 40 mg PO DAILY 03/02/22 Tizanidine [Zanaflex*] 4 mg PO Q6HR PRN 03/02/22 Tramadol HCl [Ultram] 50 mg PO Q6H PRN 03/02/22 Zolpidem Tartrate 10 mg PO BEDTIME 03/02/22 cloNIDine [Clonidine] 0.1 mg TD EVERY 7TH DAY 03/02/22 - Past Medical/Surgical History Diabetic: No -: Hypertension -: GERD - Social History Alcohol use: No CD- Drugs: No Caffeine use: No Place of Residence: Home Review of Systems General: Weakness, Unremarkable ENT: Unremarkable Respiratory: Unremarkable Cardiovascular: Other (Hx of cardiac murmur) Gastrointestinal: Unremarkable Genitourinary: Unremarkable Musculoskeletal: Back Pain, Unremarkable Integumentary: Other Neurological: Other (Fall) Lymphatics: Unremarkable Physical Examination Temp Pulse Resp BP Pulse Ox 97.0 F 74 14 168/70 H 97 03/02/22 08:00 03/02/22 08:00 03/02/22 08:00 03/02/22 08:00 03/02/22 08:00 General: Alert, In no apparent distress HEENT: Atraumatic, Normocephalic, EOMI Neck: Supple Respiratory: Clear to auscultation bilaterally, Normal air movement Cardiovascular: No edema, Regular rate/rhythm, Normal S1 S2, Systolic murmur Gastrointestinal: Soft and benign, No tenderness Musculoskeletal: No clubbing, No swelling Integumentary: No rashes Neurological: Normal speech, Normal affect Laboratory Data (last 24 hrs) 03/01/22 11:10: Phosphorus 2.9, Magnesium 1.8 03/01/22 11:10: Triglycerides 96, Cholesterol 153, HDL Cholesterol 50, Cholesterol/HDL Ratio 3.06 03/01/22 11:10: Sodium 137, Potassium 5.2 H, BUN 29 H, Creatinine 1.57 H, Glucose 107 H, Magnesium 1.9, Total Bilirubin 0.5, AST 25, ALT 25, Alkaline Phosphatase 71 Conclusions/Impression: 1. Abnormal results of kidney function studies 2. Stage 1 JANNIE 3. Possible underlying CKD Stage III unspecified 4. Chronic HTN 5 Fall 6. Troponin leak 7. Chronic HTN -Cr level lower s/p hydration, cont to monitor -UA on admission not too remarkable -BP has trended higher, recommend resuming non selective beta sharon -F/u Cardiology reccs. Pt at low risk for MICHELLE so cleared for any invasive testing if needed. -ACEi currently on hold, will determine when to resume. K level at ULN on admission, lower on recheck since -Avoid NSAIDs Thank you for this referral, Juve Serrano MD, [facility]
[2022-03-02 11:55] LABS: Urine Bilirubin NEGATIVE (Negative); Urine Blood Negative (Negative); Urine Clarity Clear (Clear); Urine Color Light-Yellow (Yellow); Urine Glucose NEGATIVE (Negative); Urine Protein NEGATIVE (Negative); Urine Urobilinogen Normal (Normal)
--- NOTE | 2022-03-02 12:36 | CON ---
Date of Consultation: 03/01/2022 Reason For Consultation: Syncope. History Of Present Illness: Ms. Anderson is 76. Has a history of parkinsonism, hypertension, chronic r enal disease, hypertension. Came in with syncope, sudden episode while she was standing. No nausea, vomiting, diaphoresis, PND, orthopnea, pedal edema, palpitations, fever, or chills. Denied any ches t pain, nausea, vomiting, diaphoresis. Allergies: NONE. Review of Systems: Negative. Social History: Negative. Family History: Negative. Medications: Include lisinopril, Protonix, Coreg, Sinemet, and nifedipine. Physical Examination: Vital Signs: Stable, afebrile. HEENT: Negative. Neck: Supple with no bruit, lymphadenopathy, or JVD or thyromegaly. Cardiac: Revealed a regular rhythm and rate with an aortic stenosis murmur. No gallops or rubs. Abdomen: Benign. Extremities: Revealed no clubbing, cyanosis, or edema. Diagnostic Data: Negative carotid. Chest x-ray showed COPD. Creatinine 1.57. Troponin is 604. BN P is 2580. Impression And Plan: I think Ms. Anderson's syncope could be related to aortic stenosis. Echocardiogra m is pending. We will see what that shows. She wants to go home. We can make arrangements for her to have left and right heart catheterization done in the very near future if her aortic stenosis is s ignificant. She started to have also been orthostatic. Nevertheless, I will continue her home medic ation when she goes home after the echocardiogram. I think the elevated troponin and BNP are seconda ry to demand ischemia, probably from orthostatic hypotension and maybe aortic stenosis. Nevertheless , I think she needs to have that evaluated with a stress test as an outpatient. If the echo is negat rony and if the echo showed aortic stenosis, she will need to have left and right heart catheterizatio n as an outpatient. Her hypertension and parkinsonism and chronic renal disease are stable. I will discuss the case further with Dr. Alonso. SHANELLE/MUSA Voice ID: [id number] Report ID: [id number]
--- NOTE | 2022-03-02 13:49 | P.DS ---
Admission Date: 03/01/22 Discharge Date: 03/02/22 Disposition: ROUTINE DISCHARGE Discharge Condition: FAIR Reason for Admission: Fall, Syncope Consultations: 1. Cardiology 2. Nephrology Hospital Course: DIAGNOSES: # Concern for Cardiogenic Syncope complicated by a Traumatic Ground-Level Fall now with Mildly Displaced, Impacted Subcapital Left Femoral Fracture # Type II NSTEMI (Demand Ischemia) # KDIGO Stage I Acute Kidney Injury on Chronic Kidney Disease Stage III (resolved) # Moderate Aortic Stenosis # Hypertension # Gastroesophageal Reflux Disease # Unspecified Tremors? - reports that she takes Carbidopa-Levodopa for this HOSPITAL COURSE: Ms. Meri Anderson is a pleasant 76 year old female with a past medical history significant for hypertension, chronic kidney disease stage III, and gastroesophageal reflux disease who was admitted to the [facility] on 03/01/2022 for syncope. She was admitted to the Medicine service for further evaluation. Given her elevated troponin, Cardiology was consulted and she was evaluated by Dr. Knutson. A transthoracic echocardiogram was performed, which revealed moderate aortic stenosis. He attributed her troponin to be secondary to demand ischemia and felt that she could be managed with a cardiac catheterization as an outpatient. In regards to her femoral fracture, we unfortunately do not have any Orthopedic Surgeons on-call. It was recommended that she be transferred to a facility with Orthopedic Surgery capabilities. A doc-to-doc was completed with Dr. Yolanda Jean at [facility], and she has generously accepted him for transfer. On 03/02/2022, she was seen on morning rounds and deemed medically stable for discharge. She was given the opportunity to ask questions and reported no further questions. Furthermore, all questions were answered to the best of my ability. A copy of this discharge summary will be sent to the above providers to facilitate continuity of care. Today, I personally spent 20 minutes on her case, of which greater than 50% of the time was spent in patient education, counseling, and coordination of care as described above. Vital Signs/Physical Exam: Temp Pulse Resp BP Pulse Ox 97.5 F 74 16 105/64 97 03/02/22 11:56 03/02/22 11:56 03/02/22 11:56 03/02/22 12:00 03/02/22 11:56 General: Alert, In no apparent distress, Oriented x3 HEENT: Atraumatic, PERRLA, Mucous membr. moist/pink, EOMI, Sclerae nonicteric Neck: Supple, JVD not distended Respiratory: Clear to auscultation bilaterally, Normal air movement Cardiovascular: No edema, Regular rate/rhythm, Normal S1 S2, No gallops, No rubs, No murmurs Gastrointestinal: Normal bowel sounds, Soft and benign, Non-distended, No tenderness, No rebound, No guarding Musculoskeletal: No clubbing, Other (minimal to no brusing noted along left hip joint) Neurological: Normal speech, Cranial nerves 3-12 intact, Normal affect Laboratory Data at Discharge: WBC 6.20 K/uL (4.3-10.9) D 03/02/22 06:13 Hgb 11.4 g/dL (12.0-15.0) L 03/02/22 06:13 Hct 33.8 % (36.0-45.0) L 03/02/22 06:13 Plt Count 180 K/uL (152-406) 03/02/22 06:13 Sodium 139 mmol/L (136-145) 03/02/22 06:13 Potassium 4.7 mmol/L (3.5-5.1) 03/02/22 06:13 BUN 31 mg/dL (7-18) H 03/02/22 06:13 Creatinine 1.32 mg/dL (0.55-1.3) H 03/02/22 06:13 Glucose 82 mg/dL (74-106) 03/02/22 06:13 Phosphorus 2.9 mg/dL (2.5-4.9) 03/01/22 11:10 Magnesium 1.7 mg/dL (1.8-2.4) L 03/02/22 06:13 Total Bilirubin 0.5 mg/dL (0.2-1.0) 03/01/22 11:10 AST 25 U/L (15-37) 03/01/22 11:10 ALT 25 U/L (12-78) 03/01/22 11:10 Alkaline Phosphatase 71 U/L (45-117) 03/01/22 11:10 Triglycerides 96 mg/dL (<150) 03/01/22 11:10 Cholesterol 153 mg/dL (<200) 03/01/22 11:10 HDL Cholesterol 50 mg/dL (40-60) 03/01/22 11:10 Cholesterol/HDL Ratio 3.06 03/01/22 11:10 Home Medications: Carbidopa/Levodopa [Sinemet 25-100 mg Tablet] 2 tab PO TID 03/02/22 Carvedilol [Coreg] 25 mg PO BID 03/02/22 Lisinopril [Zestril] 40 mg PO DAILY 03/02/22 Mecobalamin [B12 Active] 1 mg PO DAILY 03/02/22 Pantoprazole [Protonix Tab*] 40 mg PO DAILY 03/02/22 Tizanidine [Zanaflex*] 4 mg PO Q6HR PRN 03/02/22 Tramadol HCl [Ultram] 50 mg PO Q6H PRN 03/02/22 Zolpidem Tartrate 10 mg PO BEDTIME 03/02/22 cloNIDine [Clonidine] 0.1 mg TD EVERY 7TH DAY 03/02/22 Diet: Clears Activity: Ad virgli Followup: Yordy Finn MD [Primary Care Provider] - Time spent managing pt's care (in minutes): 20
--- NOTE | 2022-03-02 13:59 | EKG ---
Test Date: 2022-03-01 Test Time: 10:12:41 Small Animal Caretaker: [place] MEASUREMENT RESULTS: Intervals: Rate: 74 MD: 138 QRSD: 124 QT: 398 QTc: 441 [place]: P: 26 MD: 138 QRS: -59 T: 70 INTERPRETIVE STATEMENTS: Normal sinus rhythm Left axis deviation Nonspecific intraventricular conduction delay Abnormal ECG Compared to ECG 10/20/1998 11:22:00 Left-axis deviation now present Intraventricular conduction delay now present Left anterior fascicular block no longer present Left ventricular hypertrophy no longer present Electronically Signed On 03-02-22 13:58:09 CDT by Sixto Mcpherson
--- NOTE | 2022-03-02 14:16 | ECHO ---
HEIGHT: 5 ft 3 in WEIGHT: 116 lb 0 oz DATE OF STUDY: 03/02/[address]: Sherie Alcazar 2-DIMENSIONAL: YES M.MODE: YES DOPPLER: YES COLOR FLOW: YES TDS: NO PORTABLE: YES DEFINITY: NO BUBBLE STUDY: NO DIAGNOSIS: SYNCOPE CARDIAC HISTORY: CATHERIZATION: SURGERY: PROSTHETIC VALVE: PACEMAKER: MEASUREMENTS (cm) DIASTOLIC (NORMALS) SYSTOLIC (NORMALS) IVSd 1.1 (0.6-1.2) LA Diam 3.9 (1.9-4.0) LVEF 55-60% LVIDd 3.8 (3.5-5.7) LVIDs 2.8 (2.0-3.5) %FS 28% LVPWd 1.2 (0.6-1.2) Ao Diam 2.5 (2.0-3.7) 2 DIMENSIONAL ASSESSMENT: RIGHT ATRIUM: NORMAL LEFT ATRIUM: NORMAL RIGHT VENTRICLE: NORMAL LEFT VENTRICLE: NORMAL TRICUSPID VALVE: NORMAL MITRAL VALVE: HEAVILY CALCIFIED PULMONIC VALVE: NORMAL AORTIC VALVE: NORMAL PERICARDIAL EFFUSION: NONE AORTIC ROOT: NORMAL LEFT VENTRICULAR WALL MOTION: NORMAL DOPPLER/COLOR FLOW: SEE BELOW COMMENTS: NORMAL LEFT VENTRICULAR EJECTION FRACTION 55-60%. HEAVILY CALCIFIED AORTIC VALVE WITH VALVE AREA OF 0.7 CENTIMETERS SQUARED AND PEAK VELOCITY OF 3 METERS/SECOND AT LEAST MODERATE AORTIC STENOSIS IS PRESENT, NEED FURTHER EVALUATION. TECHNOLOGIST: Elian BOX
[2022-03-02 15:40] VITALS: BP 156/72; TEMP 97
== END 2022-03-02 15:45 | disposition home or self-care (01) ==
LOC: ER 09:46 → ERHOLD 12:52 → 4TH 22:44
PROVIDERS: ADMIT Internal Medicine; ATTEND Internal Medicine
PROC: 0T9B70Z Drainage of Bladder with Drainage Device, Via Natural or Artificial Opening (ICD-10-PCS; principal; 2022-03-02)
DX: R55 Syncope and collapse (principal); I35.0 Nonrheumatic aortic (valve) stenosis; I21.A1 Myocardial infarction type 2; S72.012A Unspecified intracapsular fracture of left femur, initial encounter for closed fracture; K21.9 Gastro-esophageal reflux disease without esophagitis; M19.90 Unspecified osteoarthritis, unspecified site; D63.8 Anemia in other chronic diseases classified elsewhere; N17.9 Acute kidney failure, unspecified; I12.9 Hypertensive chronic kidney disease with stage 1 through stage 4 chronic kidney disease, or unspecified chronic kidney disease; N18.32 Chronic kidney disease, stage 3b; E87.5 Hyperkalemia; M81.0 Age-related osteoporosis without current pathological fracture; G20 Parkinson's disease; R25.1 Tremor, unspecified; W19.XXXA Unspecified fall, initial encounter; Z20.822 Contact with and (suspected) exposure to COVID-19
CPT/HCPCS: 93005; 93306; 85025 ×2; 80048 ×2; 36415 ×2; 83735 ×3; 84100; 80061; 80076; 84443; 81003 ×2; 83036; 84484 ×4; 84439; 83880; 70450; 72125; 73700; 71046; 73130; 73502; 73562; 93880; 99285; 87811; 51702; J0360 ×2; J1940; J1644; J3475; G0378 ×3; 76377; J1650

== ENCOUNTER 2022-06-25 20:43 | Inpatient (IN) | payer MEDICARE ==
--- OUTSIDE RECORDS SUMMARY | 2022-06-25 20:47 | XMS REPORT | Continuity of Care Document ---
:[address] [facility] t Address [facility] [address] [place] [address] Care Team Providers Name Role Phone No, Pcp [facility] Primary Care Physician Unavailable Berto Leone Attending Clinician Nodal_J Attending Clinician Unavailable Ted HANCOCK, Cristal Attending Clinician CRISTAL VELASQUEZ Attending Clinician Unavailable Dax Samaniego MD Attending Clinician Clemente Guy CRNA Attending Clinician [phone] Yordy Schuster MD Attending Clinician [phone] Nodal_Daryn Admitting Clinician Unavailable CRISTAL VELASQUEZ Admitting Clinician Unavailable Payers Payer Name Policy Type Policy Number Effective Date Expiration Date [facility] [id number] 2021 (MEDICARE 00:00:00 REPLACEMENT HMO) Problems Condition Condition Condition Status Onset Resolution Last Treating Co mments Source Name Details Category Date Date Treatment Clinician Date Left Left Disease Active [facility] femoral femoral 00:00: Medical neck neck 00 Center fracture fracture Allergies, Adverse Reactions, Alerts Allergy Allergy Status Severity Reaction(s) Onset Inactive Treating Comm ents Source Name Type Date Date Clinician PENICILL Allergy Active Med [facility] 00 [facility] Penicill Propensi Active Rash [facility] adverse 00:00: Medical reaction 00 Center s Social History Social Habit Start Date Stop Date Quantity Comments Source History SDOH [facility] Alcohol Std Drinks Medica l Center History SDOH [facility] Alcohol Binge Medical Daija ter History SDOH [facility] Alcohol Comment Medical C enter History SDOH [facility] Transport Non-Med Medical Center Alcohol intake 2022-03-10 2022-03-[address] [facility] 00:00:00 00:00:00 non-drinker Medical Cente r (finding) History [facility] 2022-03-04 2022-03-[address] [facility] Alcohol Frequency 00:00:00 00:00:00 Medical Center Tobacco use and 2022-03-04 2022-03-[address] [facility] [facility] exposure 00:00:00 00:00:00 Medical Center History [facility] 2022-03-03 2022-03-[address] [facility] Transport Med 00:00:00 00:00:[address] History [facility] 2022-03-03 2022-03-[address] [facility] Housing Unable to 00:00:00 00:00:00 Medical Center Pay History [facility] 2022-03-03 2022-03-[address] [facility] Housing Places 00:00:00 00:00:00 Medical Ce nter Lived History [facility] 2022-03-03 2022-03-[address] [facility] Housing Homeless 00:00:00 00:00:00 Medical Center Last Year Sex Assigned At [birth year] [facility] 00:00:00 00:00:00 Medical Center Smoking Status Start Date Stop Date Source Never sm[facility] Medications Ordered Filled Start Stop Current Ordering Indication Dosage Frequency Signature Comments Components Source Medication Medication Date Date Medication? Clinician (SIG) Name Name carbidopa-l Yes 2{tbl} [id number] Take [address] evodopa 9-05 [id number] tablets by [facility] (SINEMET) 11:47: 3D mouth 3 Medic al 25-100 mg 03 (three) Center per tablet times daily. MECOBALAMIN Yes 1mg QD Take [address] , VITAMIN 9-05 by mouth [facility] B12, ORAL 11:47: daily. Medica l 03 Center HYDROcodone Yes 1{tbl} Take [address] -acetaminop 9-05 tablet by Javi martinez (NORCO 00:00: mouth Medica l 5-325) 00 every 6 Center 5-325 mg (six) per tablet hours as needed. Max Daily Amount: 4 tablets traMADoL Yes 50mg Take [address] (ULTRAM) 50 8-25 by mouth Luke s mg tablet 00:00: every 6 Medic al 00 (six) Center hours as needed. cloNIDine Yes 1{patch Q7D [address] (CATAPRES-T 8-22 } once a [facility] TS) 0.1 00:00: week Pt Medical mg/24 hr 00 takes Center patch every Sunday.. lisinopriL Yes 40mg QD Take [address] (PRINIVIL,Z 8-22 by mouth Luke s ESTRIL) 40 00:00: every Medica l MG tablet 00 morning. Center pantoprazol Yes 40mg QD Take [address] [facility] e 8-22 by mouth [facility] (PROTONIX) 00:00: every Medica l 40 MG 00 morning. Center tablet carvediloL Yes SMARTSI [facility] (COREG) 25 8-16 Tablet(s) [facility] MG tablet 00:00: By Mouth Medi eleni 00 Morning-Ev Center ening traZODone Yes 100mg QD Take [address] (DESYREL) 8-16 mg by [facility] 100 MG 00:00: mouth Medical tablet 00 nightly. Center TiZANidine Yes 4mg Take [address] (ZANAFLEX) 7-07 by mouth [facility] 4 MG 00:00: every 6 Medical capsule 00 (six) Center hours as needed for Muscle spasms . Vital Signs Vital Name Observation Time Observation Value Comments Source HEIGHT 2022-03-02 18:00:00 160 cm WEIGHT 2022-03-02 18:00:00 59.421 kg HEIGHT 2022-03-02 18:00:00 160 cm WEIGHT 2022-03-02 18:00:00 59.421 kg HEIGHT 2022-03-02 18:00:00 160 cm WEIGHT 2022-03-02 18:00:00 59.421 kg Systolic blood 2022-03-06 07:45:00 134 mm[Hg] [facility] pressure [facility] Diastolic blood 2022-03-06 07:45:00 59 mm[Hg] [facility] Heart rate 2022-03-06 07:45:00 59 /min [facility] Body temperature 2022-03-06 07:45:00 36.33 Carmela [facility] Respiratory rate 2022-03-06 07:45:00 18 /min [facility] Oxygen saturation in 2022-03-06 07:45:00 97 /min [facility] Arterial blood by Medical Ce nter Pulse oximetry Body height 2022-03-02 18:00:00 160 cm [facility] Body weight 2022-03-02 18:00:00 59.421 kg [facility] BMI 2022-03-02 18:00:00 23.21 kg/m2 [facility] Procedures Procedure Date / Time Performed Performing Clinician Sourc e CBC W/PLT COUNT & AUTO 2022-03-06 06:22:00 Hadnott Yordy [facility] BASIC METABOLIC PANEL 2022-03-06 06:22:00 Hadnott Yordy [facility] PHOSPHORUS 2022-03-06 06:22:00 Hadnott [facility] MAGNESIUM 2022-03-06 06:22:00 Hadnott Yordy [facility] CBC W/PLT COUNT & AUTO 2022-03-06 06:22:00 Hadnott Yordy guevara [facility] CBC W/PLT COUNT & AUTO 2022-03-05 04:17:00 Hadnott Yordy [facility] BASIC METABOLIC PANEL 2022-03-05 04:17:00 HadnottYordy Lopez [facility] PHOSPHORUS 2022-03-05 04:17:00 [facility] 2022-03-05 04:17:00 Hadnott [facility] CBC W/PLT COUNT & AUTO 2022-03-05 04:17:00 Hadnott [facility] CBC W/PLT COUNT & AUTO 2022-03-04 04:58:00 Hadnott [facility] BASIC METABOLIC PANEL 2022-03-04 04:58:00 Hadnott [facility] PHOSPHORUS 2022-03-04 04:58:00 Hadnott [facility] MAGNESIUM 2022-03-04 04:58:00 Hadnott [facility] CBC W/PLT COUNT & AUTO 2022-03-04 04:58:00 Hadnott [facility] [place] FLUORO NON-SPECIFIC 2022-03-03 19:02:00 Hadnott [facility] UP TO 1 HOUR Medical Center ORIF, HIP 2022-03-03 17:39:00 Hadnott [facility] CBC W/PLT COUNT & AUTO 2022-03-03 04:31:00 Hadnott [facility] BASIC METABOLIC PANEL 2022-03-03 04:31:00 Hadnott [facility] PT/APTT 2022-03-03 04:31:00 Cristal Velasquez [facility] PHOSPHORUS 2022-03-03 04:31:00 Hadnott [facility] MAGNESIUM 2022-03-03 04:31:00 Hadnott [facility] CBC W/PLT COUNT & AUTO 2022-03-03 04:31:00 [facility] 2022-03-02 00:00:00 ProviderElida [facility] Plan of Care Planned Activity Planned Date Details Comments Source Future Scheduled 2023-03-[address] [facility] Test 00:00:00 Counseling and Medical Cente r Screening (12+) [code = Tobacco Cessation Counseling and Screening (12+)] Future Scheduled 2022-03-02 INFLUENZA VACCINE (#1) [facility] 00:00:00 [code = INFLUENZA Medical Ce nter VACCINE (#1)] Future Scheduled 2021-11-30 Medicare IPPE (WELCOME [facility] Test 00:00:00 TO MEDICARE) [code = Medical Center Medicare IPPE (WELCOME TO MEDICARE)] Future Scheduled 2021-07-[address] [facility] Test 00:00:00 (12+) [code = Medical Center DEPRESSION SCREENING (12+)] Future Scheduled 2021-07-02 FALLS RISK SCREENING [facility] Test 00:00:00 [code = FALLS RISK Medical C enter SCREENING] Future Scheduled 2009 PNEUMOCOCCAL 65+ YRS [facility] Test 00:00:00 (1 - PCV) [code = Medical Ce nter PNEUMOCOCCAL 65+ YRS (1 - PCV)] Future Scheduled 1994 SHINGLES VACCINES ([address] [facility] Test 00:00:00 of 2) [code = SHINGLES Medic al Center VACCINES (1 of 2)] Future Scheduled 1963 DTAP/TDAP/TD VACCINES [facility] Test 00:00:00 (1 - Tdap) [code = Medical C enter DTAP/TDAP/TD VACCINES (1 - Tdap)] Future Scheduled 1962 HEPATITIS C SCREENING [facility] Test 00:00:00 [code = HEPATITIS C Medical Center SCREENING] Future Scheduled 1945 COVID-19 VACCINE (#1) [facility] Test 00:00:00 [code = COVID-[address] VACCINE (#1)] Future Scheduled 1945 DXA SCAN [code = DXA [facility] Test 00:00:00 SCAN] Medical Center Encounters Start End Encounter Admission Attending Care Care Encounter Source Date/Time Date/Time Type Type Clinicians Facility Department ID 2022-05-09 2022-05-09 CAV Berto Sulema [id number] [facility] 21:00:00 22:00:00 [id number] Medical [id number] 2022-05-08 2022-05-08 Outpatient Nodal_J DMG [facility] [id number] [facility] 00:00:00 00:00:00 [id number] Medica l Group 2022-03-02 2022-03-06 [facility] [id number] 17:43:00 11:15:00 Encounter [facility] 2022-03-02 2022-03-06 Inpatient UR VELASQUEZ, [facility] [id number] [facility] 17:43:00 11:15:00 CRISTAL Med 2022-03-03 2022-03-[address] [facility] [id number] [facility] [facility] 17:39:00 19:10:[address] [facility] 2022-03-03 2022-03-03 Surgery Hadparul, [facility] [id number] 15:30:00 16:51:00 [facility] 2022-03-02 2022-03-02 Travel [facility] [id number] [facility]00 00:[facility]:00 [facility] 2022-01-13 2022-01-13 Outpatient DMG DM [id number] [facility] 07:21:00 07:21:00 [id number] Medica l Group 2021-11-10 2021-11-10 Outpatient DMG DM [id number] [facility] 12:00:00 12:00:00 [id number] Medica l Group Results Test Description Test Time Test Comments Results Result Comments Source MAGNESIUM 2022-03-06 07:32:53 Test Item Value Reference Range Interpretation Comme nts MAGNESIUM (BEAKER) (test code = 627) 1.8 mg/dL 1.5-3.0 Marine Mechanic ID - LITOOperator ID - LITOOperator ID - LITOOperator ID - LITOBASIC METABOLIC [id number] 07:31:33 Test Item Value Reference Range Interpretation Comments SODIUM (BEAKER) 138 meq/L 135-148 (test code = 381) POTASSIUM 4.7 meq/L 3.6-5.5 (BEAKER) (test code = 379) CHLORIDE (BEAKER) 104 meq/L 98-106 (test code = 382) CO2 (BEAKER) 27 meq/L 20-29 (test code = 355) BLOOD UREA 20 mg/dL 10-26 NITROGEN (BEAKER) (test code = 354) CREATININE 1.41 mg/dL 0.50-1.20 H (BEAKER) (test code = 358) GLUCOSE RANDOM 86 mg/dL 70-110 (BEAKER) (test code = 652) CALCIUM (BEAKER) 8.2 mg/dL 8.5-10.5 L (test code = 697) EGFR (BEAKER) 38 Interpretatio n of eGFR (test code = mL/min/1.73 values Stage De scription 1092) sq m Result G1 Katrian l or high >=90 G2 Mildly decreased 60-89 G3a Mildl y to moderately 45-5 9 G3b Moderately to s everely 30-44 G4 Severl y decreased 15-29 G5 Kidney failure <15Reported eGF R is based on the CKD-EPI 2020 equation that d oes not use a race coefficientEsti mated GFR is not as accur ate as Creatinine Mony ken in predicting glom erular filtration rate . Estimated GFR is not appl icable for dialysis patien ts Marine Mechanic ID - LITOOperator ID - LITOOperator ID - LITOOperator ID - LITOOperator ID - LITOOperator ID - LITOOperator ID - LITOOperator ID - LITOOperator ID - [id number] 07:30:10 Test Item Value Reference Range Interpretation Comments PHOSPHORUS (BEAKER) (test code = 3.9 mg/dL 2.5-4.5 604) Marine Mechanic ID - LITOCBC W/PLT COUNT & AUTO [id number] 07:02:35 Test Item Value Reference Range Interpretation Comments WHITE BLOOD CELL COUNT (BEAKER) 4.7 K/ L 4.0-10.0 (test code = 775) RED BLOOD CELL COUNT (BEAKER) 2.97 M/ L 4.00-5.00 L (test code = 761) HEMOGLOBIN (BEAKER) (test code = 9.1 GM/DL 12.0-15.5 L 410) HEMATOCRIT (BEAKER) (test code = 27.9 % 36.0-46.0 L 411) MEAN CORPUSCULAR VOLUME (BEAKER) 93.9 fL 82.0-99.0 (test code = 753) MEAN CORPUSCULAR HEMOGLOBIN 30.6 pg 27.0-33.0 (BEAKER) (test code = 751) MEAN CORPUSCULAR HEMOGLOBIN CONC 32.6 GM/DL 32.0-36.0 (BEAKER) (test code = 752) RED CELL DISTRIBUTION WIDTH 13.6 % 12.0-15.0 (BEAKER) (test code = 412) PLATELET COUNT (BEAKER) (test 179 K/CU MM 150-430 code = 756) MEAN PLATELET VOLUME (BEAKER) 11.6 fL 6.0-11.5 H (test code = 754) NUCLEATED RED BLOOD CELLS 0 /100 WBC 0-0 (BEAKER) (test code = 413) NEUTROPHILS RELATIVE PERCENT 58 % (BEAKER) (test code = 429) LYMPHOCYTES RELATIVE PERCENT 22 % (BEAKER) (test code = 430) MONOCYTES RELATIVE PERCENT 14 % (BEAKER) (test code = 431) EOSINOPHILS RELATIVE PERCENT 7 % (BEAKER) (test code = 432) BASOPHILS RELATIVE PERCENT 0 % (BEAKER) (test code = 437) NEUTROPHILS ABSOLUTE COUNT 2.69 K/ L 1.80-8.00 (BEAKER) (test code = 670) LYMPHOCYTES ABSOLUTE COUNT 1.01 K/ L 1.48-4.50 L (BEAKER) (test code = 414) MONOCYTES ABSOLUTE COUNT (BEAKER) 0.64 K/ L 0.00-1.30 (test code = 415) EOSINOPHILS ABSOLUTE COUNT 0.32 K/ L 0.00-0.50 (BEAKER) (test code = 416) BASOPHILS ABSOLUTE COUNT (BEAKER) 0.02 K/ L 0.00-0.20 (test code = 417) IMMATURE GRANULOCYTES-RELATIVE 0 % 0-0 PERCENT (BEAKER) (test code = 2801) [id number] 05:56:09 Test Item Value Reference Range Interpretation Comments MAGNESIUM (BEAKER) (test code = 1.8 mg/dL 1.5-3.0 627) Marine Mechanic ID - [id number] ID - [id number] ID - [id number] ID - [id number] METABOLIC [id number] 05:54:28 Test Item Value Reference Range Interpretation Comments SODIUM (BEAKER) 139 meq/L 135-148 (test code = 381) POTASSIUM 4.4 meq/L 3.6-5.5 (BEAKER) (test code = 379) CHLORIDE (BEAKER) 104 meq/L 98-106 (test code = 382) CO2 (BEAKER) 27 meq/L 20-29 (test code = 355) BLOOD UREA 22 mg/dL 10-26 NITROGEN (BEAKER) (test code = 354) CREATININE 1.04 mg/dL 0.50-1.20 (BEAKER) (test code = 358) GLUCOSE RANDOM 79 mg/dL 70-110 (BEAKER) (test code = 652) CALCIUM (BEAKER) 8.2 mg/dL 8.5-10.5 L (test code = 697) EGFR (BEAKER) 55 Interpretatio n of eGFR (test code = mL/min/1.73 values Stage De scription 1092) sq m Result G1 Katrina l or high >=90 G2 Mildly decreased 60-89 G3a Mildl y to moderately 45-5 9 G3b Moderately to s everely 30-44 G4 Severl y decreased 15-29 G5 Kidne y failure <15Reported eGF R is based on the CKD-EPI 2020 equation that d oes not use a race coefficientEsti mated GFR is not as accur ate as Creatinine Mony rogers in predicting glom erular filtration rate . Estimated GFR is not appl icable for dialysis patien ts Marine Mechanic ID - [id number] ID - [id number] ID - [id number] ID - [id number] ID - [id number] ID - [id number] ID - [id number] ID - [id number] ID - [id number] 05:53:06 Test Item Value Reference Range Interpretation Comments PHOSPHORUS (BEAKER) (test code = 3.4 mg/dL 2.5-4.5 604) Marine Mechanic ID - [id number] W/PLT COUNT & AUTO [id number] 05:42:48 Test Item Value Reference Range Interpretation Comments WHITE BLOOD CELL COUNT (BEAKER) 6.1 K/ L 4.0-10.0 (test code = 775) RED BLOOD CELL COUNT (BEAKER) 3.15 M/ L 4.00-5.00 L (test code = 761) HEMOGLOBIN (BEAKER) (test code = 9.5 GM/DL 12.0-15.5 L 410) HEMATOCRIT (BEAKER) (test code = 29.1 % 36.0-46.0 L 411) MEAN CORPUSCULAR VOLUME (BEAKER) 92.4 fL 82.0-99.0 (test code = 753) MEAN CORPUSCULAR HEMOGLOBIN 30.2 pg 27.0-33.0 (BEAKER) (test code = 751) MEAN CORPUSCULAR HEMOGLOBIN CONC 32.6 GM/DL 32.0-36.0 (BEAKER) (test code = 752) RED CELL DISTRIBUTION WIDTH 13.7 % 12.0-15.0 (BEAKER) (test code = 412) PLATELET COUNT (BEAKER) (test 182 K/CU MM 150-430 code = 756) MEAN PLATELET VOLUME (BEAKER) 11.7 fL 6.0-11.5 H (test code = 754) NUCLEATED RED BLOOD CELLS 0 /100 WBC 0-0 (BEAKER) (test code = 413) NEUTROPHILS RELATIVE PERCENT 61 % (BEAKER) (test code = 429) LYMPHOCYTES RELATIVE PERCENT 18 % (BEAKER) (test code = 430) MONOCYTES RELATIVE PERCENT 15 % (BEAKER) (test code = 431) EOSINOPHILS RELATIVE PERCENT 5 % (BEAKER) (test code = 432) BASOPHILS RELATIVE PERCENT 0 % (BEAKER) (test code = 437) NEUTROPHILS ABSOLUTE COUNT 3.71 K/ L 1.80-8.00 (BEAKER) (test code = 670) LYMPHOCYTES ABSOLUTE COUNT 1.11 K/ L 1.48-4.50 L (BEAKER) (test code = 414) MONOCYTES ABSOLUTE COUNT (BEAKER) 0.92 K/ L 0.00-1.30 (test code = 415) EOSINOPHILS ABSOLUTE COUNT 0.32 K/ L 0.00-0.50 (BEAKER) (test code = 416) BASOPHILS ABSOLUTE COUNT (BEAKER) 0.02 K/ L 0.00-0.20 (test code = 417) IMMATURE GRANULOCYTES-RELATIVE 0 % 0-0 PERCENT (BEAKER) (test code = 2801) [id number] 06:36:18 Test Item Value Reference Range Interpretation Comments MAGNESIUM (BEAKER) (test code = 1.8 mg/dL 1.5-3.0 627) Marine Mechanic ID - LITOOperator ID - LITOOperator ID - LITOOperator ID - LITOBASIC METABOLIC [id number] 06:34:54 Test Item Value Reference Range Interpretation Comments SODIUM (BEAKER) 140 meq/L 135-148 (test code = 381) POTASSIUM 4.4 meq/L 3.6-5.5 (BEAKER) (test code = 379) CHLORIDE (BEAKER) 105 meq/L 98-106 (test code = 382) CO2 (BEAKER) 24 meq/L 20-29 (test code = 355) BLOOD UREA 21 mg/dL 10-26 NITROGEN (BEAKER) (test code = 354) CREATININE 0.99 mg/dL 0.50-1.20 (BEAKER) (test code = 358) GLUCOSE RANDOM 79 mg/dL 70-110 (BEAKER) (test code = 652) CALCIUM (BEAKER) 8.5 mg/dL 8.5-10.5 (test code = 697) EGFR (BEAKER) 59 Interpretatio n of eGFR (test code = mL/min/1.73 values Stage De scription 1092) sq m Result G1 Katrina l or high >=90 G2 Mildly decreased 60-89 G3a Mildl y to moderately 45-5 9 G3b Moderately to s everely 30-44 G4 Severl y decreased 15-29 G5 Kidney failure <15Reported eGF R is based on the CKD-EPI 2020 equation that d oes not use a race coefficientEsti mated GFR is not as accur ate as Creatinine Mony rogers in predicting glom erular filtration rate . Estimated GFR is not appl icable for dialysis patien ts Marine Mechanic ID - LITOOperator ID - LITOOperator ID - LITOOperator ID - LITOOperator ID - LITOOperator ID - LITOOperator ID - LITOOperator ID - LITOOperator ID - [id number] 06:33:40 Test Item Value Reference Range Interpretation Comments PHOSPHORUS (BEAKER) (test code = 3.9 mg/dL 2.5-4.5 604) Marine Mechanic ID - LITOCBC W/PLT COUNT & AUTO [id number] 06:20:48 Test Item Value Reference Range Interpretation Comments WHITE BLOOD CELL COUNT (BEAKER) 7.8 K/ L 4.0-10.0 (test code = 775) RED BLOOD CELL COUNT (BEAKER) 3.56 M/ L 4.00-5.00 L (test code = 761) HEMOGLOBIN (BEAKER) (test code = 10.8 GM/DL 12.0-15.5 L 410) HEMATOCRIT (BEAKER) (test code = 32.4 % 36.0-46.0 L 411) MEAN CORPUSCULAR VOLUME (BEAKER) 91.0 fL 82.0-99.0 (test code = 753) MEAN CORPUSCULAR HEMOGLOBIN 30.3 pg 27.0-33.0 (BEAKER) (test code = 751) MEAN CORPUSCULAR HEMOGLOBIN CONC 33.3 GM/DL 32.0-36.0 (BEAKER) (test code = 752) RED CELL DISTRIBUTION WIDTH 13.6 % 12.0-15.0 (BEAKER) (test code = 412) PLATELET COUNT (BEAKER) (test 190 K/CU MM 150-430 code = 756) MEAN PLATELET VOLUME (BEAKER) 11.4 fL 6.0-11.5 (test code = 754) NUCLEATED RED BLOOD CELLS 0 /100 WBC 0-0 (BEAKER) (test code = 413) NEUTROPHILS RELATIVE PERCENT 76 % (BEAKER) (test code = 429) LYMPHOCYTES RELATIVE PERCENT 11 % (BEAKER) (test code = 430) MONOCYTES RELATIVE PERCENT 10 % (BEAKER) (test code = 431) EOSINOPHILS RELATIVE PERCENT 2 % (BEAKER) (test code = 432) BASOPHILS RELATIVE PERCENT 0 % (BEAKER) (test code = 437) NEUTROPHILS ABSOLUTE COUNT 5.97 K/ L 1.80-8.00 (BEAKER) (test code = 670) LYMPHOCYTES ABSOLUTE COUNT 0.86 K/ L 1.48-4.50 L (BEAKER) (test code = 414) MONOCYTES ABSOLUTE COUNT (BEAKER) 0.81 K/ L 0.00-1.30 (test code = 415) EOSINOPHILS ABSOLUTE COUNT 0.14 K/ L 0.00-0.50 (BEAKER) (test code = 416) BASOPHILS ABSOLUTE COUNT (BEAKER) 0.01 K/ L 0.00-0.20 (test code = 417) IMMATURE GRANULOCYTES-RELATIVE 0 % 0-0 PERCENT (BEAKER) (test code = 2801) FL, FLUORO, NON-SPECIFIC, UP TO 1 [id number] 19:02:00Reason for exam:->surgeryKE[facility] : 1945 Sex: FAn imaging unit was utilized for this procedure. No radiologist interpretation was requested. Refer to the EMR for findings. Refer to PACS for any patient radiation dose information.[id number] 05:21:30 Test Item Value Reference Range Interpretation Comments MAGNESIUM (BEAKER) (test code = 1.9 mg/dL 1.5-3.0 627) Marine Mechanic ID - LITOOperator ID - LITOOperator ID - LITOOperator ID - LITOBASIC METABOLIC [id number] 05:19:41 Test Item Value Reference Range Interpretation Comments SODIUM (BEAKER) 138 meq/L 135-148 (test code = 381) POTASSIUM 4.2 meq/L 3.6-5.5 (BEAKER) (test code = 379) CHLORIDE (BEAKER) 103 meq/L 98-106 (test code = 382) CO2 (BEAKER) 25 meq/L 20-29 (test code = 355) BLOOD UREA 23 mg/dL 10-26 NITROGEN (BEAKER) (test code = 354) CREATININE 1.13 mg/dL 0.50-1.20 (BEAKER) (test code = 358) GLUCOSE RANDOM 92 mg/dL 70-110 (BEAKER) (test code = 652) CALCIUM (BEAKER) 8.3 mg/dL 8.5-10.5 L (test code = 697) EGFR (BEAKER) 50 Interpretatio n of eGFR (test code = mL/min/1.73 values Stage De scription 1092) sq m Result G1 Katrina l or high >=90 G2 Mildly decreased 60-89 G3a Mildl y to moderately 45-5 9 G3b Moderately to s everely 30-44 G4 Severl y decreased 15-29 G5 Kidney failure <15Reported eGF R is based on the CKD-EPI 2020 equation that d oes not use a race coefficientEsti mated GFR is not as accur ate as Creatinine Mony rogers in predicting glom erular filtration rate . Estimated GFR is not appl icable for dialysis patien ts Marine Mechanic ID - LITOOperator ID - LITOOperator ID - LITOOperator ID - LITOOperator ID - LITOOperator ID - LITOOperator ID - LITOOperator ID - LITOOperator ID - [id number] 05:19:03 Test Item Value Reference Range Interpretation Comments PROTIME (BEAKER) (test 12.0 seconds 9.3-12.0 Final Information code = 759) (Auto Output) INR (BEAKER) (test 1.10 See_Comment Final Inf ormation code = 370) (Auto Output) [Automated mess age] The system [employer] generated this result transmit pascual reference range : <=5.90. The reference range was not used to interpret this result as normal/abnormal . PARTIAL THROMBOPLASTIN 29.1 seconds 23.0-35.0 Final Information TIME (BEAKER) (test (Auto Ou tput) code = 760) RECOMMENDED COUMADIN/WARFARIN INR THERAPY RANGESSTANDARD DOSE: 2.0 - 3.0 Includes: PROPHYLAXIS for venous thrombosis, systemic embolization; TREATMENT for venous thrombosis and/or pulmonary embolus.HIGH RISK: Target INR is 2.5-3.5 for patients with mechanical heart valves.CBC W/PLT COUNT & AUTO [id number] 05:18:32 Test Item Value Reference Range Interpretation Comments WHITE BLOOD CELL COUNT (BEAKER) 5.1 K/ L 4.0-10.0 (test code = 775) RED BLOOD CELL COUNT (BEAKER) 3.62 M/ L 4.00-5.00 L (test code = 761) HEMOGLOBIN (BEAKER) (test code = 11.0 GM/DL 12.0-15.5 L 410) HEMATOCRIT (BEAKER) (test code = 32.7 % 36.0-46.0 L 411) MEAN CORPUSCULAR VOLUME (BEAKER) 90.3 fL 82.0-99.0 (test code = 753) MEAN CORPUSCULAR HEMOGLOBIN 30.4 pg 27.0-33.0 (BEAKER) (test code = 751) MEAN CORPUSCULAR HEMOGLOBIN CONC 33.6 GM/DL 32.0-36.0 (BEAKER) (test code = 752) RED CELL DISTRIBUTION WIDTH 13.6 % 12.0-15.0 (BEAKER) (test code = 412) PLATELET COUNT (BEAKER) (test 198 K/CU MM 150-430 code = 756) MEAN PLATELET VOLUME (BEAKER) 10.9 fL 6.0-11.5 (test code = 754) NUCLEATED RED BLOOD CELLS 0 /100 WBC 0-0 (BEAKER) (test code = 413) NEUTROPHILS RELATIVE PERCENT 53 % (BEAKER) (test code = 429) LYMPHOCYTES RELATIVE PERCENT 29 % (BEAKER) (test code = 430) MONOCYTES RELATIVE PERCENT 14 % (BEAKER) (test code = 431) EOSINOPHILS RELATIVE PERCENT 4 % (BEAKER) (test code = 432) BASOPHILS RELATIVE PERCENT 1 % (BEAKER) (test code = 437) NEUTROPHILS ABSOLUTE COUNT 2.72 K/ L 1.80-8.00 (BEAKER) (test code = 670) LYMPHOCYTES ABSOLUTE COUNT 1.48 K/ L 1.48-4.50 (BEAKER) (test code = 414) MONOCYTES ABSOLUTE COUNT (BEAKER) 0.69 K/ L 0.00-1.30 (test code = 415) EOSINOPHILS ABSOLUTE COUNT 0.19 K/ L 0.00-0.50 (BEAKER) (test code = 416) BASOPHILS ABSOLUTE COUNT (BEAKER) 0.03 K/ L 0.00-0.20 (test code = 417) IMMATURE GRANULOCYTES-RELATIVE 0 % 0-0 PERCENT (BEAKER) (test code = 2801) [id number] 05:18:24 Test Item Value Reference Range Interpretation Comments PHOSPHORUS (BEAKER) (test code = 3.5 mg/dL 2.5-4.5 604) Marine Mechanic ID - [id number]
[2022-06-25 21:22] LABS: Absolute Lymphocytes (CBC) 1.8 K/uL (0.7-4.9); Hematocrit 35.1 % (36.0-45.0); MCV 92.9 fL (80-100); MPV 9.8 fL (7.6-11.3); RBC Red Blood Cell Count 3.77 M/uL (3.86-4.86)
[2022-06-25 21:25] LABS: Protime INR 1.05
--- NOTE | 2022-06-25 21:35 | RAD REPORT ---
EXAM DESCRIPTION: RAD - Chest Single View - 06/25/2022 9:22 pm CLINICAL HISTORY: SOB Chest pain. COMPARISON: Chest Pa And Lat (2 Views) dated 03/01/2022 FINDINGS: Portable technique limits examination quality. Moderate bilateral pulmonary opacities are present. This likely represents pulmonary edema. The heart appears enlarged. Moderate bilateral pleural effusions. IMPRESSION: Significant CHF versus volume overload pattern.
[2022-06-25] MEDS ORDERED: FUROSEMIDE 40 MG/4 ML VIAL ONE (21:51)
[2022-06-25 21:52] LABS: AST/SGOT 19 U/L (15-37); Albumin 3.1 g/dL (3.4-5.0); Alkaline Phosphatase 70 U/L (45-117); BUN Blood Urea Nitrogen 51 mg/dL (7-18); Bicarbonate 27 mmol/L (21-32); Bilirubin Direct 0.1 mg/dL (0-0.2); Bilirubin Total 0.4 mg/dL (0.2-1.0); Glomerular Filtration Rate 28 ml/min (=/>90); Glucose Level 151 mg/dL (74-106); Magnesium 2.2 mg/dL (1.6-2.4); NT PRO-BNP 6628 pg/mL (<450); Potassium 4.7 mmol/L (3.5-5.1); Protein, Total 6.5 g/dL (6.4-8.2); Sodium Level 139 mmol/L (136-145)
[2022-06-25 21:58] LABS: SARS-COV-2 RT PCR NEGATIVE (NEGATIVE)
[2022-06-25 21:59] LABS: ALT/SGPT < 10 U/L (13-56)
[2022-06-25 22:01] LABS: Troponin High Sensitivity 425.9 pg/mL (<58.9)
[2022-06-25 22:08] LABS: Urine Blood Negative (Negative); Urine Glucose Negative (Negative); Urine Protein 1+ (Negative); Urine Specific Gravity >=1.030 (1.005-1.030); Urine pH 5.5 (5.0-7.0)
[2022-06-25 22:29] LABS: Urine Bacteria None Seen /HPF (<20); Urine Mucus Slight /HPF (None Seen); Urine RBC None Seen /HPF (None Seen)
--- NOTE | 2022-06-25 22:29 | EDPHYS ---
Physician Documentation [facility] Name: Meri Anderson Age: 77 yrs Sex: Female : 1945 Arrival Date: 06/25/2022 Time: 20:45 Bed 2 Private MD: ED Physician Ronnie Suero HPI: 06/25 20:55 This 77 yrs old Female presents to ER via Ambulatory with complaints of cp Shortness of Breath. 20:55 The patient has shortness of breath with light activity. cp 20:55 Onset: The symptoms/episode began/occurred gradually, and became worse today. Duration: cp The symptoms are continuous, and are steadily getting worse. Associated signs and symptoms: Pertinent negatives: chest pain, productive cough, diaphoresis, fever, vomiting. Severity of symptoms: in the emergency department the symptoms are unchanged despite home interventions. Historical: - Allergies: 21:07 No Known Allergies; kl - Home Meds: 21:07 Carbidopa-Levodopa Oral [Active]; carvedilol Oral [Active]; lisinopril Oral [Active]; kl Nifedipine Oral [Active]; pantoprazole Oral [Active]; tizanidine Oral [Active]; Tramadol Oral [Active]; - PMHx: 21:07 Hypertensive disorder; Osteoporosis; kl - PSHx: 21:07 None; kl - Immunization history:: Adult Immunizations up to date. - Social history:: Smoking status: Patient denies any tobacco usage or history of. ROS: 21:00 Constitutional: Negative for body aches, chills, fever, poor PO intake. cp 21:00 Cardiovascular: Positive for edema, chest pressure. cp 21:00 Respiratory: Positive for shortness of breath, at rest. Negative for cough, wheezing. 21:00 Abdomen/GI: Negative for abdominal pain, vomiting, diarrhea, constipation. 21:00 Eyes: Negative for injury, pain, redness, and discharge. cp 21:00 ENT: Negative for drainage from ear(s), ear pain, sore throat, difficulty swallowing, cp difficulty handling secretions. 21:00 Skin: Negative for rash. 21:00 Neuro: Positive for weakness, Negative for altered mental status, headache, syncope. 21:00 All other systems are negative. Exam: 21:05 Constitutional: The patient appears in no acute distress, alert, awake, cp non-diaphoretic, non-toxic, well developed, well nourished. 21:05 Head/Face: Normocephalic, atraumatic. cp 21:05 Eyes: Periorbital structures: appear normal, Conjunctiva: normal, no exudate, no injection, Sclera: no appreciated abnormality, Lids and lashes: appear normal, bilaterally. 21:05 ENT: External ear(s): are unremarkable, Nose: is normal, Mouth: Lips: moist, Oral mucosa: pink and intact, moist, Posterior pharynx: Airway: no evidence of obstruction, patent. 21:05 Chest/axilla: Inspection: normal. 21:05 Cardiovascular: Rate: normal, Rhythm: regular, Edema: ankle edema, that is mild, JVD: is not appreciated. 21:05 Respiratory: the patient does not display signs of respiratory distress, Respirations: shallow respirations, that is mild, Breath sounds: decreased breath sounds, that are severe, are heard in the left posterior lower lobe, right posterior middle lobe and right posterior lower lobe, stridor, is not appreciated. 21:05 Abdomen/GI: Inspection: abdomen appears normal, Palpation: abdomen is soft and non-tender, in all quadrants. 21:05 Back: pain, is absent, ROM is normal. 21:05 Skin: cellulitis, is not appreciated, no rash present. 21:05 Neuro: Orientation: to person, place \T\ time. Mentation: is normal, Motor: moves all fours, strength is normal, Sensation: is normal. 21:07 ECG was reviewed by the Attending Physician. cp Vital Signs: 20:45 BP 139 / 76; Pulse 88; Resp 22; Temp 97.3(O); Pulse Ox 83% on R/A; Pain 0/10; kl 21:10 BP 151 / 73; Pulse 74; Resp 16; Pulse Ox 99% on 4 lpm NC; kl 22:35 Weight 58.6 kg (M); aa9 06/26 00:02 BP 120 / 62; Pulse 78; Resp 19; Pulse Ox 99% on 4 lpm NC; kl MDM: 06/25 21:05 Patient medically screened. rt 22:35 Data reviewed: vital signs, nurses notes, lab test result(s), EKG, radiologic studies, cp plain films. 22:35 Data interpreted: hospital monitor: rate is 76 beats/min, rhythm is regular, Pulse cp oximetry: on 4L(s) per nasal canula, is 99 %. Interpretation: acceptable. Test interpretation: by ED physician or midlevel provider: ECG, plain radiologic studies. Counseling: I had a detailed discussion with the patient and/or guardian regarding: the historical points, exam findings, and any diagnostic results supporting the discharge/admit diagnosis, lab results, radiology results, the need for further work-up and treatment in the hospital. Physician consultation: Chacorta HERNANDEZ was called at 22:30, was contacted at 22:30, regarding admission, to the telemetry unit. patient's condition. 06/25 20:47 Order name: Basic Metabolic Panel; Complete Time: 22:14 06/25 22:14 Interpretation: Normal except: GLUC 151; BUN 51; CRE 1.83; GFR 28; CA 8.2. 06/25 20:47 Order name: CBC with Diff; Complete Time: 21:41 06/25 22:35 Interpretation: Normal except: RBC 3.77; HGB 11.3; HCT 35.1; MN% 13.2; EOSINOPHIL % 4.9. 06/25 20:47 Order name: LFT's; Complete Time: 22:14 06/25 20:47 Order name: Magnesium; Complete Time: 22:14 06/25 20:47 Order name: NT PRO-BNP; Complete Time: 22:14 06/25 22:35 Interpretation: Abnormal: NT PRO-BNP 6628. 06/25 20:47 Order name: PT-INR; Complete Time: 21:41 06/25 20:47 Order name: Troponin HS; Complete Time: 22:14 06/25 20:47 Order name: XRAY Chest (1 view); Complete Time: 21:41 06/25 22:14 Interpretation: Report review. 06/25 20:47 Order name: COVID-19/FLU A+B; Complete Time: 22:14 06/25 21:41 Order name: Urine Microscopic Only; Complete Time: 22:35 06/25 22:35 Interpretation: Reviewed. 06/25 22:08 Order name: Urine Dipstick-Ancillary; Complete Time: 22:14 EDDC 06/26 01:14 Order name: D-Dimer; Complete Time: 01:14 EDMS 06/26 01:14 Interpretation: D-DIMER [id number]; Reviewed. cp 06/25 20:47 Order name: EKG; Complete Time: 20:48 cp 06/25 20:47 Order name: Cardiac monitoring; Complete Time: 21:16 cp 06/25 20:47 Order name: EKG - Nurse/Tech; Complete Time: 21:16 cp 06/25 20:47 Order name: IV Saline Lock; Complete Time: 21:16 cp 06/25 20:47 Order name: Labs collected and sent; Complete Time: 21:16 cp 06/25 20:47 Order name: O2 Per Protocol; Complete Time: 21:16 cp 06/25 20:47 Order name: O2 Sat Monitoring; Complete Time: 21:16 cp 06/25 21:41 Order name: Urine Dipstick-Ancillary (obtain specimen); Complete Time: 22:07 cp EC:07 Rate is 78 beats/min. Rhythm is regular. VA interval is normal. QRS interval is cp prolonged at 130 msec. QT interval is normal. T waves are Inverted in leads aVL, aVR. Interpreted by me. Reviewed by me. Administered Medications: 22:07 Drug: Lasix (furosemide) 40 mg Route: IVP; Site: right antecubital; aa9 22:44 Drug: Lovenox (enoxaparin) 1 mg/kg Route: Sub-Q; Site: abdomen; aa9 22:44 Drug: Aspirin Chewable Tablet 324 mg Route: PO; aa9 Disposition: 06/26 07:13 Co-signature as Attending Physician, Ronnie Suero MD I agree with the assessment and rt plan of care. Disposition Summary: 06/25/22 22:29 Hospitalization Ordered Hospitalization Status: Inpatient Admission cp Location: Telemetry/MedSurg (Inpatient) cp Condition: Fair cp Problem: new cp Symptoms: have improved cp Bed/Room Type: Standard cp Provider: Nolberto Sevilla(06/25/22 23:21) la1 Room Assignment: 216(06/25/22 23:48) cg Diagnosis - Unspecified combined systolic (congestive) and diastolic (congestive) heart failure cp - Subsequent non-ST elevation (NSTEMI) myocardial infarction cp - Hypoxemia cp Forms: - Medication Reconciliation Form cp - SBAR form cp Signatures: Dispatcher [employer] EDMS Cornel, Ne, RN RN Chacorta Combs, ORGANIZATIONAL DEVELOPMENT SPECIALIST-C ORGANIZATIONAL DEVELOPMENT SPECIALIST-Cla1 Naldo Green PA PA cp Garcia, Cindy, RN RN cg Bettina Acharya RN RN aa9 Ronnie Suero MD MD rt Corrections: (The following items were deleted from the chart) 06/25 22:14 22:14 Normal except: GLUC 151; BUN 51; CRE 1.83; GFR 28. cp cp 23:21 22:29 Cyril Alonso cp la1 23:48 22:29 cp cg
--- NOTE | 2022-06-25 22:29 | ER ---
Nurse's Notes [facility] Name: Meri Anderson Age: 77 yrs Sex: Female : 1945 Arrival Date: 06/25/2022 Time: 20:45 Bed 2 Private MD: Diagnosis: Unspecified combined systolic (congestive) and diastolic (congestive) heart failure;Subsequent non-ST elevation (NSTEMI) myocardial infarction;Hypoxemia Presentation: 06/25 20:45 Chief complaint: Patient states: sudden onset SOB Positive orthopnea bilateral lower kl extremity swelling. Coronavirus screen: Vaccine status: Patient reports receiving the 2nd dose of the covid vaccine. Ebola Screen: Patient negative for fever greater than or equal to 101.5 degrees Fahrenheit, and additional compatible Ebola Virus Disease symptoms. Initial Sepsis Screen: Does the patient meet any 2 criteria? No. Patient's initial sepsis screen is negative. Does the patient have a suspected source of infection? No. Patient's initial sepsis screen is negative. Risk Assessment: Do you want to hurt yourself or someone else? Patient reports no desire to harm self or others. Onset of symptoms was June 25, 2022 at 20:00. 20:45 Method Of Arrival: Ambulatory 20:45 Acuity: LORENZO 3 kl Triage Assessment: 20:45 General: Appears uncomfortable, well developed, well nourished, Behavior is calm, kl cooperative. Pain: Complains of pain in chest. EENT: No deficits noted. No signs and/or symptoms were reported regarding the EENT system. Neuro: No deficits noted. Cardiovascular: Reports shortness of breath, chest pressure Heart tones S1 S2. Respiratory: Airway is patent Trachea midline Respiratory effort is labored, Respiratory pattern is symmetrical, Breath sounds with crackles bilaterally. the patient has moderate shortness of breath. GI: No deficits noted. No signs and/or symptoms were reported involving the gastrointestinal system. : No deficits noted. No signs and/or symptoms were reported regarding the genitourinary system. Derm: No deficits noted. No signs and/or symptoms reported regarding the dermatologic system. Musculoskeletal: No deficits noted. No signs and/or symptoms reported regarding the musculoskeletal system. Historical: - Allergies: 21:07 No Known Allergies; kl - Home Meds: 21:07 Carbidopa-Levodopa Oral [Active]; carvedilol Oral [Active]; lisinopril Oral [Active]; Nifedipine Oral [Active]; pantoprazole Oral [Active]; tizanidine Oral [Active]; Tramadol Oral [Active]; - PMHx: 21:07 Hypertensive disorder; Osteoporosis; kl - PSHx: 21:07 None; kl - Immunization history:: Adult Immunizations up to date. - Social history:: Smoking status: Patient denies any tobacco usage or history of. Screenin/26 00:00 [facility] ED Fall Risk Assessment (Adult) History of falling in the last 3 months, kl including since admission No falls in past 3 months (0 pts) Confusion or Disorientation No (0 pts) Intoxicated or Sedated No (0 pts) Impaired Gait Yes (1 pt) Mobility Assist Device Used No (0 pt) Altered Elimination No (0 pt) Score/Fall Risk Level 0 - 2 = Low Risk Oriented to surroundings, Maintained a safe environment, Educated pt \T\ family on fall prevention, incl call for assistance when getting out of bed. Abuse screen: Denies threats or abuse. Nutritional screening: No deficits noted. Tuberculosis screening: No symptoms or risk factors identified. Assessment: 06/25 22:48 General: Appears in no apparent distress. comfortable, Behavior is calm, cooperative, aa9 appropriate for age. Neuro: Level of Consciousness is awake, alert, obeys commands, Oriented to person, place, time, situation. Cardiovascular: Patient's skin is warm and dry. Respiratory: Airway is patent Respiratory effort is even, unlabored. GI: No signs and/or symptoms were reported involving the gastrointestinal system. : No signs and/or symptoms were reported regarding the genitourinary system. Vital Signs: 20:45 BP 139 / 76; Pulse 88; Resp 22; Temp 97.3(O); Pulse Ox 83% on R/A; Pain 0/10; kl 21:10 BP 151 / 73; Pulse 74; Resp 16; Pulse Ox 99% on 4 lpm NC; kl 22:35 Weight 58.6 kg (M); aa9 06/26 00:02 BP 120 / 62; Pulse 78; Resp 19; Pulse Ox 99% on 4 lpm NC; ED Course: 06/25 20:45 Patient arrived in ED. la1 20:46 Naldo Green PA is PHCP. cp 20:46 Ronnie Suero MD is Attending Physician. cp 21:07 Triage completed. kl 21:16 COVID-19/FLU A+B Sent. kl 21:16 Basic Metabolic Panel Sent. kl 21:16 CBC with Diff Sent. kl 21:16 LFT's Sent. kl 21:16 Magnesium Sent. kl 21:16 NT PRO-BNP Sent. kl 21:16 PT-INR Sent. kl 21:17 Troponin HS Sent. kl 21:23 XRAY Chest (1 view) In Process Unspecified. EDMS 22:01 Notified Nurse Practitioner and/or Physician Die Casting Machine Setter of a critical lab result(s), bb troponin of 425.6 Naldo Green PA notified. 22:07 Urine Microscopic Only Sent. aa9 22:27 Cyril Alonso MD is Hospitalizing Provider. cp 22:30 Assisted to bedside commode. aa9 23:21 Nolberto Sevilla MD is Hospitalizing Provider. la1 06/26 00:00 No provider procedures requiring assistance completed. Patient admitted, IV remains in kl place. 00:00 Arm band placed on right wrist. 00:02 Patient has correct armband on for positive identification. kl Administered Medications: 06/25 22:07 Drug: Lasix (furosemide) 40 mg Route: IVP; Site: right antecubital; aa9 22:44 Drug: Lovenox (enoxaparin) 1 mg/kg Route: Sub-Q; Site: abdomen; aa9 22:44 Drug: Aspirin Chewable Tablet 324 mg Route: PO; aa9 Medication: 06/26 00:02 VIS not applicable for this client. Outcome: 06/25 22:29 Decision to Hospitalize by Provider. cp 06/26 00:01 Admitted to Med/surg accompanied by tech, via stretcher, with oxygen, Report called to amaris smith Condition: improved Discharge instructions given to patient, Instructed on the need for admit, Demonstrated understanding of instructions. 01:34 Patient left the ED. Signatures: Dispatcher [employer] EDMS Ne Unger RN RN kl Ballard, Brenda, RN RN bb Attema, Lee, KETTLE OPERATOR HEAD-C KETTLE OPERATOR HEAD-Cla1 Nlado Green PA PA cp Avalos, Aylin RN JUAN aa9
[2022-06-25] MEDS ORDERED: ASPIRIN 81 MG CHEWABLE TABLET ONE (22:41)
[2022-06-25] MEDS ORDERED: ENOXAPARIN 60 MG/0.6 ML SQ ONE (22:41)
--- NOTE | 2022-06-25 23:53 | P.HP ---
Certification for Inpatient Patient admitted to: Inpatient With expected LOS: >2 Midnights Patient will require the following post-hospital care: None Practitioner: I am a practitioner with admitting privileges, knowledge of patient current condition, hospital course, and medical plan of care. Services: Services provided to patient in accordance with Admission requirements found in Title 42 Section 412.3 of the Code of Federal Regulations Patient History Date of Service: 06/25/22 Reason for admission: CHF exacerbation, NSTEMI History of Present Illness: 77-year-old female with history of hypertension, CAD, osteoporosis, Parkinson's presents to the emergency department for chest pain, shortness of breath. She reports that earlier today she began to experience some pressure in her chest followed by increasing shortness breath throughout the day. Also noted to have bilateral lower extremity pitting edema. She denies any known history of nic estive heart failure, review of an echocardiogram performed 03/02/2022 shows patient had moderate aortic stenosis. Her labs here were significant for high- sensitivity troponin 425.9 elevated BNP 6628 creatinine 1.83 GFR 28 glucose 151. Patient was initially hypoxic on room air saturating 66% per EMS, this time she is tolerating nasal cannula well. Chest x-ray revealed significant CHF versus volume overload pattern. Allergies Penicillins Allergy (Verified 03/01/22 23:08) Rash Home Medications: Carbidopa/Levodopa [Sinemet 25-100 mg Tablet] 2 tab PO TID 03/02/22 Carvedilol [Coreg] 25 mg PO BID 03/02/22 Lisinopril [Zestril] 40 mg PO DAILY 03/02/22 Mecobalamin [B12 Active] 1 mg PO DAILY 03/02/22 Pantoprazole [Protonix Tab*] 40 mg PO DAILY 03/02/22 Tizanidine [Zanaflex*] 4 mg PO Q6HR PRN 03/02/22 Tramadol HCl [Ultram] 50 mg PO Q6H PRN 03/02/22 Zolpidem Tartrate 10 mg PO BEDTIME 03/02/22 cloNIDine [Clonidine] 0.1 mg TD EVERY 7TH DAY 03/02/22 - Past Medical/Surgical History Diabetic: No -: Hypertension -: GERD -: Aortic stenosis -: Hip surgery -: Gastric bypass Psychosocial/ Personal History: Patient lives at home alone. - Family History Father -: Diabetes Brother -: Diabetes Sister -: Diabetes - Social History Smoking Status: Never smoker Alcohol use: No CD- Drugs: No Caffeine use: No Place of Residence: Home Review of Systems 10-point ROS is otherwise unremarkable Respiratory: Shortness of Breath Cardiovascular: Chest Pain, Edema Physical Examination - Physical Exam General: Alert, In no apparent distress, Oriented x3 HEENT: Atraumatic, PERRLA, Mucous membr. moist/pink, EOMI, Sclerae nonicteric Neck: Supple, 2+ carotid pulse no bruit, No LAD, Without JVD or thyroid abnorm ality Respiratory: Diminished, Crackles/rales Cardiovascular: Edema, Irregular heart rate/rhythm, Systolic murmur Capillary refill: <2 Seconds Gastrointestinal: Normal bowel sounds, No tenderness Musculoskeletal: No tenderness Integumentary: No rashes Neurological: Normal speech, Normal strength at 5/5 x4 extr, Normal tone, Normal affect - Studies Laboratory Data (last 24 hrs) 06/25/22 21:00: PT 11.6, INR 1.05 06/25/22 21:00: WBC 6.30, Hgb 11.3 L, Hct 35.1 L, Plt Count 182 06/25/22 21:00: Sodium 139, Potassium 4.7, BUN 51 H, Creatinine 1.83 H, Glucose 151 H, Magnesium 2.2, Total Bilirubin 0.4, AST 19, ALT < 10 L, Alkaline Phosphatase 70 Assessment and Plan - Plan Assessment: Acute hypoxic respiratory failure secondary to new onset CHF NSTEMI JANNIE Hypertension Osteoporosis Tremor Plan: Acute hypoxic respiratory failure secondary to new onset CHF: Patient with no known CHF history, does have a history of moderate aortic stenosis per chart review. She is given IV Lasix, is diuresing well at this time. Continue d iuresis, cardiology consult in place. Repeat echocardiogram. NSTEMI: Suspect demand ischemia related to acute CHF exacerbation, given therapeutic Lovenox. Aspirin, statin ordered. Repeat echocardiogram pending, no STEMI criteria present on EKG. Appreciate further input from cardiology. JANNIE: We will consult nephrology, likely CRS. Continue diuresis. Hypertension: Obtaining continue medications as appropriate, adjust as necessary. Osteoporosis: Continue medication Tremor: Patient reports questionable history of Parkinson's reports she has been told she does have it and has been told she does not have it but she does take carbidopa levodopa for a tremor periodically. DVT PPX: Therapeutic Lovenox Code status: Full Discharge Plan: Home Plan to discharge in: 72 Hours - Advance Directives Does patient have a Living Will: No Does patient have a Durable POA for Healthcare: No - Code Status/Comfort Care Code Status Assessed: Yes (Full code) Critical Care: No Time Spent Managing Pts Care (In Minutes): 70
[2022-06-26] MEDS ORDERED: ONDANSETRON 4 MG/2 ML VIAL IV PRN (00:15)
[2022-06-26 01:41] VITALS: BMI 22.5
[2022-06-26 05:06] LABS: Absolute Lymphocytes (CBC) 0.4 K/uL (0.7-4.9); Hematocrit 34.2 % (36.0-45.0); Lymphocytes % 10.4 % (15.3-44.8); MCV 91.6 fL (80-100); MPV 10.1 fL (7.6-11.3); RBC Red Blood Cell Count 3.74 M/uL (3.86-4.86)
[2022-06-26 05:34] LABS: AST/SGOT 16 U/L (15-37); Albumin 2.9 g/dL (3.4-5.0); Alkaline Phosphatase 55 U/L (45-117); BUN Blood Urea Nitrogen 50 mg/dL (7-18); Bicarbonate 25 mmol/L (21-32); Bilirubin Total 0.5 mg/dL (0.2-1.0); Glomerular Filtration Rate 34 ml/min (=/>90); Glucose Level 173 mg/dL (74-106); HDL Cholesterol 56 mg/dL (40-60); LDL Cholesterol, Calculated 114 mg/dL (<130); Potassium 4.7 mmol/L (3.5-5.1); Protein, Total 6.2 g/dL (6.4-8.2); Sodium Level 139 mmol/L (136-145)
[2022-06-26 05:35] LABS: ALT/SGPT < 10 U/L (13-56); Troponin High Sensitivity 2867.3 pg/mL (<58.9)
[2022-06-26] MEDS: ENOXAPARIN 60 MG/0.6 ML SQ SCH (09:00)
[2022-06-26] MEDS: ASPIRIN EC 81 MG TAB PO SCH (09:00)
[2022-06-26] MEDS ORDERED: FUROSEMIDE 40 MG/4 ML VIAL IV SCH (09:00)
--- NOTE | 2022-06-26 09:50 | RAD REPORT ---
EXAM DESCRIPTION: US - Extrem Venous W Compress Karsten - 06/26/2022 3:54 am CLINICAL HISTORY: R/O dvt, elev. dd Bilateral leg edema and swelling. COMPARISON: No comparisons TECHNIQUE: Real-time sonographic interrogation of the left and right lower extremity deep venous sys tems was performed. FINDINGS: Normal compressibility, flow augmentation, phasic flow and spontaneous flow is identified in both the left and right lower extremity deep venous systems. IMPRESSION: No sonographic evidence of left or right lower extremity deep venous thrombosis.
[2022-06-26] MEDS ORDERED: TIZANIDINE 4 MG TABLET PO PRN (11:14)
--- NOTE | 2022-06-26 11:17 | P.PN ---
Subjective Date of Service: 06/26/22 Chief Complaint: CHF exacerbation, NSTEMI Subjective: Improving (Patient is doing better shortness of breath has improved she denies any chest pain admitted with dyspnea patient has never smoked) Review of Systems 10-point ROS is otherwise unremarkable Physical Examination - Vital Signs Temperature: 97.0 F Blood Pressure: 140/63 Pulse: 86 Respirations: 14 Pulse Ox (%): 97 - Physical Exam General: Alert, Oriented x3 Respiratory: Crackles/rales (Minimal crackles at the bases) Cardiovascular: No edema, Regular rate/rhythm, Normal S1 S2, Systolic murmur (Loud systolic murmur) - Studies Laboratory Data (last 24 hrs) 06/25/22 21:00: PT 11.6, INR 1.05 06/25/22 21:00: WBC 6.30, Hgb 11.3 L, Hct 35.1 L, Plt Count 182 06/25/22 21:00: Sodium 139, Potassium 4.7, BUN 51 H, Creatinine 1.83 H, Glucose 151 H, Magnesium 2.2, Total Bilirubin 0.4, AST 19, ALT < 10 L, Alkaline Phosphatase 70 Assessment And Plan - Current Problems (Diagnosis) (1) Non-STEMI (non-ST elevated myocardial infarction) Current Visit: Yes Status: Acute Plan: Patient admitted with a non-STEMI history of coronary artery disease she had a stent placed troponins elevated I suspect is from heart failure nonspecific changes on EKG (2) Congestive heart failure Current Visit: Yes Status: Acute Plan: Appears to have congestive heart failure with cardiomegaly patient does take antihypertensive medications including pain medication patient's condition has improved significantly vital signs oxygenation satisfactory await cardiology consult also has renal insufficiency nephrology consult pending Qualifiers: Heart failure chronicity: unspecified (3) Aortic stenosis Current Visit: Yes Status: Acute Plan: Patient has aortic stenosis presumed secondary congestive heart failure
[2022-06-26] MEDS ORDERED: NA CHLORIDE 0.9% 500 ML ONE (13:10)
[2022-06-26] MEDS: CARBIDOPA/LEVODOPA 25/100 TAB PO SCH ×2 (14:00→20:31)
--- NOTE | 2022-06-26 15:10 | CON ---
Date of Consultation: 06/26/2022 Reason For Consultation: Elevated troponin and shortness of breath. History Of Present Illness: A 77-year-old female with history of coronary artery disease, Parkinson disease, osteoporosis, hypertension, presented to the emergency room with shortness of breath along w ith orthopnea and lower extremity edema. Shortness of breath is getting worse and the patient is gen erally weak and she has chest pain on and off as well, left-sided, radiating to the left upper extrem ity. Medications: Refer to reconciliation sheet for detailed list. Allergies: PENICILLIN. Family History: No premature coronary artery disease or cancer. Social History: She does not smoke or drink. Does not use any drugs. Review of Systems: All systems reviewed and they were negative except what mentioned in HPI. Physical Examination: Vital Signs: Reviewed. Head and Neck: Pupils are equal, reactive to light. Intact eye movements. Mild JVD elevation. No cervical lymphadenopathy. Neck is supple. Thyroid is not enlarged. Lungs: Decreased breathing sounds with thin crackles in bases. No accessory muscle use or muscle re traction. Heart: Regular rate and rhythm with loud aortic ejection systolic murmur, late peaking. Abdomen: Soft, nontender. Bowel sounds positive. No organomegaly. No masses or hernia. No rigidi ty or rebound. Extremities: Trace edema bilaterally. No clubbing, cyanosis. Intact pulses. Skin: No rash. Neurologic: Alert, awake, oriented x3. No acute focal deficits appreciated. Lymph Nodes: No cervical or axillary lymphadenopathy. Investigations: Troponin initially was 426 and the latest troponin was 3021. BUN 50, creatinine 1.5 7. Assessment And Recommendations: 1.Non-ST elevation myocardial infarction, but she does have a very loud murmur, late peaking, so likely she has severe . This could be a demand due to the significant and acute congestive hear t failure. Keep her n.p.o., plan for right heart catheterization and we will cross the aortic valve and get invasive gradient and identify the coronary artery anatomy and we will plan for PCI as needed . 2.Acute congestive heart failure exacerbation, likely due to the aortic valve stenosis. We will lef t and right heart catheterization as outlined above and agree with IV Lasix. 3.Acute on chronic renal failure and that is improving. SR/MODL Voice ID: [id number] Report ID: [id number]
[2022-06-26] MEDS ORDERED: HEPA 1000U/500MLS 2,000 UNIT/1,000 ML BAG IV ONE (15:50)
[2022-06-26] MEDS ORDERED: LIDOCAINE 1% 20 ML MDV ONE (15:50)
[2022-06-26] MEDS ORDERED: FENTANYL CITR 100 MCG/2 ML ONE (15:51)
[2022-06-26] MEDS ORDERED: MIDAZOLAM HCL 2 MG/2 ML INJ ONE (15:52)
[2022-06-26] MEDS ORDERED: HEPARIN 10,000 UNIT/10 ML VIAL IV ONE (15:53)
--- NOTE | 2022-06-26 16:05 | EKG ---
Test Date: 2022-06-25 Test Time: 21:02:41 Medical Records Analyst: JOSE MEASUREMENT RESULTS: Intervals: Rate: 78 OK: 152 QRSD: 130 QT: 408 QTc: 465 [place]: P: 18 OK: 152 QRS: -51 T: 84 INTERPRETIVE STATEMENTS: Normal sinus rhythm Left axis deviation Nonspecific intraventricular block Cannot rule out Anteroseptal infarct, age undetermined Abnormal ECG Compared to ECG 03/01/2022 10:12:41 Myocardial infarct finding now present Intraventricular conduction delay no longer present Electronically Signed On 06-26-22 16:03:31 [employer] by Sixto Mcpherson
--- NOTE | 2022-06-26 18:10 | OP ---
Date of Procedure: 06/26/2022 Surgeon: ANDREEA FRANCE Procedures Performed: 1.Selective coronary angiogram. 2.Left heart catheterization. 3.IVUS of ostial left main. Indication: Non-ST elevation myocardial infarction. Access: Right femoral artery 6-[place], closed with 6-[place] Angio-Seal. Complications: None. Bleeding: Less than 10 mL. Total contrast used was 30 to 35 cc. Anesthesia: Total sedation time was 45 minutes, used fentanyl and Versed. Description Of Procedure: After risks, benefits, and alternatives were explained, patient agreed to proceed, and signed informed consent. Patient was brought to the cardiac catheterization laboratory, prepped and draped in usual sterile fashion. Then, I accessed the right femoral artery using a micr opuncture kit, fluoroscopy, and ultrasound guidance, placed a 6-[place] sheath. Then I acces sed right femoral vein also same way and placed a 7-[place] pinnacle sheath. I took a 7-[place] c atheter into the RV and I could not get it up to the pulmonary artery and there was no long enough wi re to assess for that. So, the right heart catheterization procedure was supported. Then, I took a 6-[place] JL 3.5 catheter through the artery and I accessed into the aortic root, engaged left main, t ook standard views, and then exchanged for a 6-[place] 3DRC and engaged RCA, took standard views and t he catheter was pushed over the wire into the LV, measured the LVEDP, and pullback not recorded a mil d gradient. I removed the catheter and sheath, placed 6-[place] Angio-Seal for closure with good hemo stasis and the venous sheath was removed. Manual pressure was applied with good hemostasis. Findings: 1.Left main ostial 40% to 50% stenosis by IVUS, minimal luminal area 6.8 sq mm and then the LAD is l arge and normal. Normal diagonal branches in the mid LAD. There is a focal 30% to 40% stenosis. 2.Left circumflex: Moderate sized and no disease. 3.RCA: Large and dominant. In the mid RCA, there is a stent that has diffuse 60% ISR that is heavi ly calcified. No focal tight stenosis that is seen. 4.LVEDP was slightly elevated at 18 mmHg and mean gradient across the aortic valve was in the low 20 s, between 20 and 25 mmHg. Conclusion: 1.Moderate coronary artery disease of the left main and mild mid LAD stenosis. 2.Moderate to severe ISR of the mid RCA stenosis with a plan to perform a stress test on her and if any of the territory shows ischemia, then we will plan for further intervention. Did not proceed tod ay with further work due to advanced kidney disease to avoid contrast load. Procedure: I gave systemic heparin to assure ACT level above 250 and then I took a 6-[place] EBU 3.5 guide with side holes to aortic root, engaged left main, took a short run-through wire into the left main and the LAD and then took IVUS catheter into the left main and then removed it. Final angiogram did not show any complications. Plan: 1.Continue diuresis for one more day, reassess tomorrow. 2.Focused echo to evaluate aortic valve further. 3.Nuclear stress test to evaluate the need to come back and fix the RCA. SR/MODL Voice ID: [id number] Report ID: [id number]
[2022-06-26] MEDS: carvediloL 25 MG TAB PO SCH (20:30)
[2022-06-26] MEDS: ATORVASTATIN 40 MG TAB PO SCH (20:30)
[2022-06-26] MEDS: HYDROCODONE/APAP 7.5/325 MG TAB PO PRN (22:05)
[2022-06-27 04:11] LABS: Absolute Lymphocytes (CBC) 1.2 K/uL (0.7-4.9); Hematocrit 28.9 % (36.0-45.0); Lymphocytes % 19.7 % (15.3-44.8); MCV 90.5 fL (80-100); MPV 9.8 fL (7.6-11.3); RBC Red Blood Cell Count 3.19 M/uL (3.86-4.86)
[2022-06-27 04:39] LABS: ALT/SGPT < 10 U/L (13-56); AST/SGOT 14 U/L (15-37); Albumin 2.6 g/dL (3.4-5.0); Alkaline Phosphatase 43 U/L (45-117); BUN Blood Urea Nitrogen 53 mg/dL (7-18); Bicarbonate 29 mmol/L (21-32); Bilirubin Total 0.4 mg/dL (0.2-1.0); Glomerular Filtration Rate 34 ml/min (=/>90); Glucose Level 97 mg/dL (74-106); Potassium 5.7 mmol/L (3.5-5.1); Protein, Total 5.3 g/dL (6.4-8.2); Sodium Level 140 mmol/L (136-145)
[2022-06-27] MEDS ORDERED: FUROSEMIDE 40 MG/4 ML VIAL IV ONE (04:51)
[2022-06-27] MEDS ORDERED: SOD POLYSTYREN SUL 15 GM/60 ML UCUP PO ONE (04:52)
[2022-06-27] MEDS ORDERED: CALCIUM GLUC 10% INJ 4.65 MEQ in NA CHLORIDE 0.9% 100 ML IV ONE (04:52)
[2022-06-27] MEDS ORDERED: CALCIUM GLUCONATE 1 GM IVPB 1 GM/50 ML BAG IV ONE (05:20)
[2022-06-27] MEDS ORDERED: PNEUMOCOCCAL VACCINE 0.5 ML IMVAC ONE (08:00)
--- NOTE | 2022-06-27 08:37 | PN ---
Date of Progress Note: 06/27/2022 Subjective: Seen by bedside. She is asymptomatic. Review of Systems: No chest pain or shortness of breath, orthopnea. No nausea, vomiting, or diarrhea. All other system s reviewed and they were negative. Physical Examination: Vital Signs: Reviewed. Head and Neck: Pupils are equal, reactive to light. Intact eye movements. No JVD. No cervical lym phadenopathy. Neck is supple. Thyroid is not enlarged. Lungs: Clear to auscultation bilaterally. No rhonchi, wheezing, or crackles. No accessory muscle u se. Heart: Regular rate and rhythm with aortic ejection systolic murmur. Abdomen: Soft, nontender. Bowel sounds positive. No organomegaly. No masses or hernia. No rigidi ty or rebound. Extremities: No edema, clubbing, or cyanosis. Intact pulses. Skin: No rash. Neurologic: Alert, awake, oriented x3. No acute focal deficits appreciated. Investigations: BUN 53, creatinine 1.57. Latest troponin was 3021 and hemoglobin is 9.9. Assessment And Recommendations: 1.Acute on chronic diastolic heart failure. She has diuresed very well and appears to be euvolemic and switch the Lasix to oral 40 mg daily. 2.Aortic valve stenosis. It is otjg-mg-rmibrrjj range per catheterization. We would keep monitorin g. 3.Coronary artery disease with elevated troponin, status post coronary angiogram. There is no signi ficant coronary artery occlusion that was identified; however, there is about 50% to 60% iSR of the R CA. I recommend a nuclear stress test today and repeat focused echo to evaluate the aortic valve fur ther and the ejection fraction and if the stress test is abnormal in the inferior territory, then we will plan for shockwave lithotripsy for iSR that she has [facility] SR/MODL Voice ID: [id number] Report ID: [id number]
[2022-06-27] MEDS: PANTOPRAZOLE 40MG TABLET PO SCH (09:00)
[2022-06-27] MEDS ORDERED: FUROSEMIDE 40 MG/4 ML VIAL IV SCH (09:00)
[2022-06-27] MEDS: ENOXAPARIN 60 MG/0.6 ML SQ SCH (09:00)
[2022-06-27] MEDS ORDERED: lisinopriL 20 MG TAB PO SCH (09:00)
[2022-06-27] MEDS: ASPIRIN EC 81 MG TAB PO SCH (09:00)
[2022-06-27] MEDS: carvediloL 25 MG TAB PO SCH ×2 (09:00→21:42)
[2022-06-27] MEDS: CARBIDOPA/LEVODOPA 25/100 TAB PO SCH ×3 (09:00→21:00)
[2022-06-27] MEDS ORDERED: REGADENOSON 0.4 MG/5 ML SYR IV ONE (10:13)
[2022-06-27] MEDS: HYDROCODONE/APAP 7.5/325 MG TAB PO PRN ×2 (13:26→23:33)
--- NOTE | 2022-06-27 13:31 | RAD REPORT ---
EXAM DESCRIPTION: NM - Rest Stress Cardiac Imaging - 06/27/2022 12:48 pm CLINICAL HISTORY: elevated troponin Chest pain. COMPARISON: No comparisons TECHNIQUE: The patient was administered approximately 10mCi of Tc 99m Sestamibi prior to resting SPE CT imaging of the heart. The patient was then administered approximately 30 mCi of Tc 99m Sestamibi f ollowing exercise or pharmacologic stress. Multiplanar SPECT images were reviewed. FINDINGS: There is moderate sized diminished radiopharmaceutical accumulation seen along the inferio r wall with both rest and stress. This is likely related to prior infarct. No stress-induced ischemi a defect seen. The end diastolic volume is 114 ml, the end systolic volume is 42 ml, and the ejection fraction is 63 %. IMPRESSION: No stress induced ischemia. Moderate sized area of diminished radiopharmaceutical accumulation involving the inferior wall likely indicates prior infarct.
--- NOTE | 2022-06-27 14:47 | P.CNS ---
Date of Consult: 06/27/22 Reason for Consult: Renal insufficiency Requesting Physician: Chacorta Berg Chief Complaint: CHF exacerbation, NSTEMI History of Present Illness: 77-year-old female with history of chronic hypertension, known CAD, Parkinson's presented to the emergency department for chest pain, shortness of breath that began rather acutely. CP was moderate intensity and lasting for several hours or more. Pt was admitted for NSTEMI, pt has undergone a NST per Cardiology. Renal service consulted for renal insufficiency, pt denies knowledge of CKD. Pt reports feeling fair currently and denies active CP or dyspnea at rest. Allergies Penicillins Allergy (Verified 03/01/22 23:08) Rash Home Medications: Carbidopa/Levodopa [Sinemet 25-100 mg Tablet] 2 tab PO TID 03/02/22 Carvedilol [Coreg] 25 mg PO BID 03/02/22 Lisinopril [Zestril] 40 mg PO DAILY 03/02/22 Pantoprazole [Protonix Tab*] 40 mg PO DAILY 03/02/22 Tizanidine [Zanaflex*] 4 mg PO Q6HP PRN 03/02/22 cloNIDine [Clonidine] 0.1 mg TD EVERY 7TH DAY 03/02/22 Hydrocodone Bit/Acetaminophen [[place] 7.5-325 Tablet] 1 tab PO Q6HP PRN 06/26/22 Trazodone [Desyrel*] 200 mg PO BEDTIME PRN 06/26/22 - Past Medical/Surgical History Diabetic: No -: Hypertension -: GERD -: Aortic stenosis -: Hip surgery -: Gastric bypass -: D&C -: Hysterectomy Psychosocial/ Personal History: Patient lives at home alone. - Family History Father Medical History: Diabetes Brother Medical History: Diabetes Sister Medical History: Diabetes Mother Medical History: Other (see notes) Notes: Dementia - Social History Alcohol use: No CD- Drugs: No Caffeine use: Yes Place of Residence: Home Review of Systems General: Unremarkable Eyes: Unremarkable ENT: Unremarkable Respiratory: Shortness of Breath, As per HPI Cardiovascular: Chest Pain, As per HPI Gastrointestinal: Unremarkable Genitourinary: Unremarkable Musculoskeletal: Pedal edema Integumentary: Unremarkable Neurological: Unremarkable Lymphatics: Unremarkable Physical Examination Temp Pulse Resp BP Pulse Ox 96.9 F 79 16 133/71 97 06/27/22 12:00 06/27/22 12:00 06/27/22 13:26 06/27/22 12:00 06/27/22 13:26 General: Alert, In no apparent distress, Cooperative HEENT: Atraumatic, Normocephalic, PERRLA Neck: Supple Respiratory: Clear to auscultation bilaterally, Normal air movement Cardiovascular: No edema, Regular rate/rhythm, Systolic murmur Gastrointestinal: Soft and benign, Non-distended, No ascites Musculoskeletal: No swelling, No contractures Integumentary: No significant lesion, No tenderness/swelling Neurological: Normal speech, Normal tone, Normal affect Conclusions/Impression: A/P) 1. Abnormal results of kidney functions studies. Stage 1 JANNIE on underlying CKD Stage IIIb possibly 2nd to chronic co-morbidities with no initial evidence of MICHELLE, cont to trend. ACEi was resumed at larger dose of 40 mg qd, recommend dose lowering and placing holding parameter 2. Hyperkalemia -spurious, repeat level acceptable but cont to monitor in the setting of ACEi resumption 3. Ischemic cardiomyopathy -LEVDP mildly elevated at 18 mmHg on admission, agree with lasix but switch to PO and cont to monitor 4. Mod , non rheumatic -further w/u and management per cardiology Juve Serrano MD, LATRICEN
--- NOTE | 2022-06-27 18:12 | P.DS ---
Admission Date: 06/25/22 Discharge Date: 06/29/22 Disposition: ROUTINE DISCHARGE Discharge Condition: FAIR Reason for Admission: CHF exacerbation, NSTEMI - Problems (1) Acute diastolic heart failure Current Visit: Yes Status: Acute (2) Coronary artery disease Current Visit: Yes Status: Acute (3) Aortic stenosis Current Visit: Yes Status: Acute (4) Non-STEMI (non-ST elevated myocardial infarction) Current Visit: Yes Status: Acute (5) Acute respiratory failure with hypoxia Current Visit: Yes Status: Acute Brief History of Present Illness: 77-year-old female with history of hypertension, CAD, osteoporosis, Parkinson's presented to the emergency department for chest pain, shortness of breath. Chest pain described as a pressure-like sensation. Also noted to have bilateral lower extremity pitting edema. She denied any known history of congestive heart failure. Review of an echocardiogram performed 03/02/2022 showed patient had moderate aortic stenosis. Her labs here were significant for high-sensitivity troponin 425.9 elevated BNP 6628 creatinine 1.83 GFR 28 glucose 151. Patient was initially hypoxic on room air saturating 66% per EMS. She was tolerating oxygen by nasal cannula in the ED. Chest x-ray revealed significant CHF versus volume overload pattern. Patient was admitted for further management. Hospital Course: Patient admitted to the medical floor and treated with full dose Lovenox for elevated troponin. Troponin trended up significantly. Patient was seen and evaluated by cardiology who performed cardiac cath. Patient noted to have Moderate coronary artery disease of the left main and mild mid LAD stenosis. Moderate to severe ISR of the mid RCA stenosis. No percutaneous intervention was done. Stress test was done which showed fixed defect involving the inferior wall. Patient was treated with IV Lasix for pulmonary edema secondary to CHF exacerbation. Her respiratory condition improved significantly, she was weaned off oxygen to room air. She developed an episode of diaphoresis and chills on 06/27/2022 during the night. Discharge on 06/27/2022 was held, repeat EKG demonstrated T wave inversion in V1 and V2, repeat troponin x2 showed troponin was still trending down. Patient was asymptomatic the rest of the hospital stay. She was seen by Dr. Mcpherson and patient deemed clinically stable for discharge. She is prescribed aspirin and Plavix and Lipitor for coronary artery disease. She is also prescribed Lasix maintenance dose. Vital Signs/Physical Exam: Temp Pulse Resp BP Pulse Ox 97.2 F 86 16 144/65 H 96 06/27/22 15:46 06/27/22 15:46 06/27/22 15:46 06/27/22 15:46 06/27/22 15:46 General: Alert, In no apparent distress, Oriented x3 HEENT: Mucous membr. moist/pink Neck: Supple, JVD not distended Respiratory: Clear to auscultation bilaterally, Normal air movement Cardiovascular: No edema, Regular rate/rhythm, Normal S1 S2 Gastrointestinal: Normal bowel sounds, Soft and benign, Non-distended, No tenderness Musculoskeletal: No swelling Integumentary: No rashes, No cyanosis Neurological: Normal strength at 5/5 x4 extr Laboratory Data at Discharge: WBC 6.10 K/uL (4.3-10.9) 06/27/22 03:48 Hgb 9.9 g/dL (12.0-15.0) L D 06/27/22 03:48 Hct 28.9 % (36.0-45.0) L 06/27/22 03:48 Plt Count 151 K/uL (152-406) L 06/27/22 03:48 PT 11.6 SECONDS (9.5-12.5) 06/25/22 21:00 INR 1.05 06/25/22 21:00 Sodium 140 mmol/L (136-145) 06/27/22 03:48 Potassium 4.5 mmol/L (3.5-5.1) D 06/27/22 08:39 BUN 53 mg/dL (7-18) H 06/27/22 03:48 Creatinine 1.57 mg/dL (0.55-1.02) H 06/27/22 03:48 Glucose 97 mg/dL (74-106) 06/27/22 03:48 Magnesium 2.2 mg/dL (1.6-2.4) 06/25/22 21:00 Total Bilirubin 0.4 mg/dL (0.2-1.0) 06/27/22 03:48 AST 14 U/L (15-37) L 06/27/22 03:48 ALT < 10 U/L (13-56) L 06/27/22 03:48 Alkaline Phosphatase 43 U/L (45-117) L D 06/27/22 03:48 Triglycerides 65 mg/dL (<150) 06/26/22 04:29 Cholesterol 183 mg/dL (<200) 06/26/22 04:29 HDL Cholesterol 56 mg/dL (40-60) 06/26/22 04:29 Cholesterol/HDL Ratio 3.27 06/26/22 04:29 Home Medications: Carbidopa/Levodopa [Sinemet 25-100 mg Tablet] 2 tab PO TID 03/02/22 Carvedilol [Coreg] 25 mg PO BID 03/02/22 Lisinopril [Zestril] 40 mg PO DAILY 03/02/22 Pantoprazole [Protonix Tab*] 40 mg PO DAILY 03/02/22 Tizanidine [Zanaflex*] 4 mg PO Q6HP PRN 03/02/22 cloNIDine [Clonidine] 0.1 mg TD EVERY 7TH DAY 03/02/22 Hydrocodone Bit/Acetaminophen [[place] 7.5-325 Tablet] 1 tab PO Q6HP PRN 06/26/22 Trazodone [Desyrel*] 200 mg PO BEDTIME PRN 06/26/22 Aspirin [Aspirin EC 81 MG] 81 mg PO DAILY #30 tab 06/27/22 Atorvastatin Calcium [Lipitor] 40 mg PO BEDTIME #30 tab 06/27/22 Clopidogrel Bisulfate [Plavix] 75 mg PO DAILY #30 tab 06/27/22 Furosemide [Lasix*] 40 mg PO DAILY #30 tab 06/27/22 New Medications: Aspirin [Aspirin EC 81 MG] 81 mg PO DAILY #30 tab Furosemide [Lasix*] 40 mg PO DAILY #30 tab Atorvastatin Calcium [Lipitor] 40 mg PO BEDTIME #30 tab Clopidogrel Bisulfate [Plavix] 75 mg PO DAILY #30 tab Diet: AHA Activity: Ad virgil Followup: Sixto Mcpherson MD [ACTIVE - CAN ADMIT] - 1-2 Weeks Unknown,U [Primary Care Provider] - Time spent managing pt's care (in minutes): 40
--- NOTE | 2022-06-27 19:05 | P.PN ---
Subjective Date of Service: 06/27/22 Chief Complaint: CHF exacerbation, NSTEMI Patient has no new complaint. She denies any chest or shortness of breath. She has been tolerating room air. Physical Examination - Vital Signs Temperature: 97.2 F Blood Pressure: 144/65 Pulse: 86 Respirations: 16 Pulse Ox (%): 96 - Physical Exam General: Alert, In no apparent distress, Oriented x3 HEENT: Mucous membr. moist/pink Neck: JVD not distended Respiratory: Normal air movement Cardiovascular: Regular rate/rhythm, Normal S1 S2 Gastrointestinal: Soft and benign, Non-distended, No tenderness Musculoskeletal: No tenderness Integumentary: No cyanosis Neurological: Normal strength at 5/5 x4 extr Assessment And Plan - Current Problems (Diagnosis) (1) Acute diastolic heart failure Current Visit: Yes Status: Acute (2) Coronary artery disease Current Visit: Yes Status: Acute (3) Aortic stenosis Current Visit: Yes Status: Acute (4) Non-STEMI (non-ST elevated myocardial infarction) Current Visit: Yes Status: Acute (5) Acute respiratory failure with hypoxia Current Visit: Yes Status: Acute - Plan Acute respiratory failure resolved. CHF improved. Patient transition to oral Lasix. Status post cardiac cath and patient noted to have moderate multivessel disease. Nuclear stress test post cardiac cath shows fixed defect, no reversible ischemia. Case discussed with Dr. Mcpherson-D/C with aspirin, Plavix and Lipitor. Continue oral Lasix on discharge. Increase activity as tolerated. Continue home antihypertensives. Renal function has been stable with diuresis. Nephrology input appreciated. Clinically stable for discharge.
[2022-06-27] MEDS ORDERED: NITROGLYCERIN 0.4 MG/TAB SL PRN (20:30)
[2022-06-27] MEDS ORDERED: NITROGLYCERIN 1 GM PKT TD ONE (20:48)
[2022-06-27] MEDS: NITROGLYCERIN 1 GM PKT TD SCH (21:00)
--- NOTE | 2022-06-27 21:16 | P.PN ---
Date of Service: 06/27/22 Patient was scheduled to be discharged this evening however I received a call that patient was complaining of some chest pressure and was diaphoretic. She had a nuclear stress test today and reports feeling "off" since. Repeat EKG was obtained which showed some changes in V1 and V2 and was sent to Dr. Mcpherson for review. When I went to evaluate patient, diaphoresis had resolved. Repeat troponin down from previous. Nitro paste administered per Dr. Mcpherson. Repeat EKG done 30 minutes after without any further changes. Dr. Mcpherson notified. Plan is to continue monitoring patient.
[2022-06-27] MEDS: ATORVASTATIN 40 MG TAB PO SCH (21:42)
[2022-06-28 04:21] LABS: Absolute Lymphocytes (CBC) 1.4 K/uL (0.7-4.9); Hematocrit 29.4 % (36.0-45.0); Lymphocytes % 24.7 % (15.3-44.8); MPV 10.2 fL (7.6-11.3); RBC Red Blood Cell Count 3.23 M/uL (3.86-4.86)
[2022-06-28 04:27] LABS: ALT/SGPT < 10 U/L (13-56); AST/SGOT 14 U/L (15-37); Albumin 2.6 g/dL (3.4-5.0); Alkaline Phosphatase 45 U/L (45-117); BUN Blood Urea Nitrogen 45 mg/dL (7-18); Bicarbonate 31 mmol/L (21-32); Bilirubin Total 0.3 mg/dL (0.2-1.0); Glomerular Filtration Rate 43 ml/min (=/>90); Glucose Level 99 mg/dL (74-106); Protein, Total 5.3 g/dL (6.4-8.2); Sodium Level 143 mmol/L (136-145)
[2022-06-28] MEDS: NITROGLYCERIN 1 GM PKT TD SCH ×3 (04:44→20:09)
--- NOTE | 2022-06-28 07:13 | TREADPHA ---
DX: Date of Study: 06/27/2022 Ht: 5' 3 " Wt: 127 lb 6 oz Consulting Physician: ROMÁN MEDICATIONS: LOVENOX HISTORY: HYPERTENSION, THYROID, STENTS TIMES ONE PHYSICIAL EXAMINATION: RESTING B.P.: 103/76 RESTING H.R.: 76 RESTING EKG: NORMAL SINUS RHYTHM, LEFT BUNDLE BRANCH BLOCK PROTOCOL: PHARMACOLOGIC EXERCISE TIME: 3:30 B.P. AT PEAK STRESS: 164/78 IMPRESSION: PREMATURE VENTRICULAR COMPLEXES/ PREMATURE ATRIAL COMPLEXES PRE PROCEDURE. LEXISCAN STRESS TEST PERFORMED ORDERED. LEXISCAN INJECTED PER PROTOCOL. CARDIOLITE INJECTED PER PROTOCOL. PREMATURE VENTRICULAR COMPLEXES, PREMATURE ATRIAL COMPLEXES, COUPLET NOTED DURING PROCEDURE. NO SUPRAVENTRICULAR TACHYCARDIA, NO VENTRICULAR TACHYCARDIA NOTED. SHORTNESS OF BREATH NOTED, CHEST PRESSURE NOTED. LEFT SIDE OF HEAD PAIN NOTED DURING PROCEDURE. PRESSURE RESOLVING POST PROCEDURE. NAUSEA NOTED AND RESOLVED. ELECTROCARDIOGRAM IS NON-DIAGNOSTIC DUE TO ABNORMAL BASELINE.
[2022-06-28] MEDS: FUROSEMIDE 40 MG TABLET PO SCH (08:04)
[2022-06-28] MEDS: PANTOPRAZOLE 40MG TABLET PO SCH (08:04)
[2022-06-28] MEDS: CARBIDOPA/LEVODOPA 25/100 TAB PO SCH ×4 (08:05→21:00)
[2022-06-28] MEDS: ENOXAPARIN 60 MG/0.6 ML SQ SCH (08:05)
[2022-06-28] MEDS: carvediloL 25 MG TAB PO SCH ×2 (08:05→20:08)
[2022-06-28] MEDS: ASPIRIN EC 81 MG TAB PO SCH (08:05)
[2022-06-28] MEDS ORDERED: lisinopriL 20 MG TAB PO SCH (09:00)
--- NOTE | 2022-06-28 12:53 | P.PN ---
Nephrology note: (S) Pt's discharge held due to episode yesterday, note reviewed, pt denies CP or dyspnea when seen, resting in ebd General: Alert, In no apparent distress, Cooperative HEENT: Atraumatic, Normocephalic, PERRLA Neck: Supple Respiratory: Clear to auscultation bilaterally, Normal air movement Cardiovascular: No edema, Regular rate/rhythm, Systolic murmur Gastrointestinal: Soft and benign, Non-distended, No ascites Musculoskeletal: No swelling, No contractures Integumentary: No significant lesion, No tenderness/swelling Neurological: Normal speech, Normal tone, Normal affect Conclusions/Impression: A/P) 1. Abnormal results of kidney functions studies. Stage 1 JANNIE on underlying CKD Stage IIIb possibly 2nd to chronic co-morbidities with no initial evidence of MICHELLE, since resolved, cont to trend. ACEi was resumed at larger dose of 40 mg qd, recommend dose lowering and placing holding parameter. Pt confirms today was only taking 10 mg at home so will lower dose further. 2. Hyperkalemia -spurious, repeat level acceptable but cont to monitor in the setting of ACEi resumption 3. Ischemic cardiomyopathy -LEVDP mildly elevated at 18 mmHg on admission, agreed with lasix but switched to PO and cont to monitor 4. Mod , non rheumatic -further w/u and management per cardiology 5. Atherosclerosis of [place] coronary artery with angina -will defer to Cardiology to place on [place], will cut back on ACEi dose back to 10 mg to allow for addition of nitrate if needed. Juve Serrano MD, VLAD
[2022-06-28] MEDS ORDERED: PNEUMOCOCCAL VACCINE 0.5 ML IMVAC ONE (13:00)
[2022-06-28] MEDS: HYDROCODONE/APAP 7.5/325 MG TAB PO PRN ×2 (13:02→20:09)
--- NOTE | 2022-06-28 18:44 | P.PN ---
Subjective Date of Service: 06/28/22 Chief Complaint: CHF exacerbation, NSTEMI Patient report feeling cold and sweaty and short of breath last night. She denies chest pain. EKG last night demonstrated T wave inversion in V1 and V2. Discharge held. Patient has no complaint today. She has been tolerating room air. Physical Examination - Vital Signs Temperature: 96.5 F Blood Pressure: 133/63 Pulse: 68 Respirations: 16 Pulse Ox (%): 95 - Physical Exam General: Alert, In no apparent distress, Oriented x3 HEENT: Mucous membr. moist/pink Neck: JVD not distended Respiratory: Clear to auscultation bilaterally, Normal air movement Cardiovascular: Regular rate/rhythm, Normal S1 S2 Gastrointestinal: Soft and benign, Non-distended, No tenderness Musculoskeletal: No swelling Integumentary: No cyanosis Neurological: Normal strength at 5/5 x4 extr Assessment And Plan - Current Problems (Diagnosis) (1) Acute diastolic heart failure Current Visit: Yes Status: Acute (2) Coronary artery disease Current Visit: Yes Status: Acute (3) Aortic stenosis Current Visit: Yes Status: Acute (4) Non-STEMI (non-ST elevated myocardial infarction) Current Visit: Yes Status: Acute (5) Acute respiratory failure with hypoxia Current Visit: Yes Status: Acute - Plan Acute respiratory failure resolved. CHF improved. Patient appears compensated. Continue oral Lasix. Status post cardiac cath and patient noted to have moderate multivessel disease. Nuclear stress test post cardiac cath shows fixed defect, no reversible isch emia. Continue aspirin Plavix and Lipitor. Overnight events discussed with Dr. Mcpherson will recommended repeat troponin which shows troponin keeps trending down. Dr. Mcpherson recommend to continue monitoring overnight. Increase activity as tolerated. Continue home antihypertensives. Nephrology is following.
--- NOTE | 2022-06-28 20:04 | PN ---
Date of Progress Note: 06/28/2022 Subjective: Seen by bedside. No further chest pain. Review of Systems: She had an episode of chest pain yesterday with diaphoresis with mild EKG changes. However, troponin is trending down. There is no nausea, vomiting, or diarrhea. No dysuria, polyuria, or urgency. No further chest pain. All other systems reviewed and they are negative. Physical Examination: Vital Signs: Reviewed. Temperature is 96.5, pulse 68, breathing 16, blood pressure 133/63, saturati ng 95% on room air. General: Pleasant elderly female, in no apparent distress. Head And Neck: Pupils are equal, reactive to light. Intact eye movements. No JVD. No cervical lym phadenopathy. Neck is supple. Thyroid is not enlarged. Lungs: Clear to auscultation bilaterally. No rhonchi, wheezing, or crackles. No accessory muscle u se. Heart: Regular rate and rhythm with aortic systolic ejection murmur. Abdomen: Soft, nontender. Bowel sounds positive. No organomegaly. No masses or hernia. No rigidi ty or rebound. Extremities: No edema, clubbing, cyanosis. Intact pulses. Skin: No rash. Neuro: Alert, awake, oriented x3. No focal deficits appreciated. Investigations: Troponin is 1056. BUN 45, creatinine 1.28. Assessment/recommendation: 1.Acute on chronic diastolic heart failure exacerbation, improving after diuretics. She was switche d to oral Lasix 40 mg daily. Continue current management. 2.Elevated troponin suggestive of non-ST elevation myocardial infarction status post coronary angiog jerrica. She has significant mid left main disease. However, the minimal luminal area was still around 6.8 sq mm, so this is to be monitored, but she has significant in-stent restenosis of the right coron abimbola artery that needs shock wave lithotripsy and percutaneous coronary intervention which we will bernardo n to be done as an outpatient for her. Meanwhile, I will continue her on Plavix, aspirin, and Loveno x for 1 more day and reassess tomorrow after ambulation. She has no chest pain. She can be released and we will arrange for it as an outpatient. SR/MODL Voice ID: [id number] Report ID: [id number]
[2022-06-28] MEDS: ATORVASTATIN 40 MG TAB PO SCH (20:08)
[2022-06-29 04:06] VITALS: O2SAT 97
[2022-06-29] MEDS: NITROGLYCERIN 1 GM PKT TD SCH ×2 (05:01→13:00)
--- NOTE | 2022-06-29 07:04 | ECHO ---
HEIGHT: 5 ft 3 in WEIGHT: 127 lb 6 oz DATE OF STUDY: 06/28/[address]: Chacorta Berg NP 2-DIMENSIONAL: YES M.MODE: YES DOPPLER: YES COLOR FLOW: YES TDS: PORTABLE: YES DEFINITY: BUBBLE STUDY: DIAGNOSIS: NON ST ELEVATION MYOCARDIAL INFARCTION CARDIAC HISTORY: CATHERIZATION: SURGERY: PROSTHETIC VALVE: PACEMAKER: MEASUREMENTS (cm) DIASTOLIC (NORMALS) SYSTOLIC (NORMALS) IVSd 1.2 (0.6-1.2) LA Diam 4.1 (1.9-4.0) LVEF 83% LVIDd 5.1 (3.5-5.7) LVIDs 2.4 (2.0-3.5) %FS 52% LVPWd 1.2 (0.6-1.2) Ao Diam 2.6 (2.0-3.7) 2 DIMENSIONAL ASSESSMENT: RIGHT ATRIUM: NORMAL LEFT ATRIUM: ENLARGED RIGHT VENTRICLE: NORMAL LEFT VENTRICLE: MILD LEFT VENTRICULAR HYPERTROPHY TRICUSPID VALVE: MILD TRICUSPID REGURGITATION MITRAL VALVE: MITRAL ANNULAR CALCIFICATION WITH MITRAL STENOSIS/ MITRAL REGURGITATION PULMONIC VALVE: NORMAL AORTIC VALVE: HEAVILY CALCIFIED PERICARDIAL EFFUSION: NONE AORTIC ROOT: NORMAL LEFT VENTRICULAR WALL MOTION: NORMAL DOPPLER/COLOR FLOW: SEE BELOW COMMENTS: 1. NORMAL LEFT VENTRICULAR EJECTION FRACTION OF GREATER THAN 60% WITH NORMAL WALL MOTION 2. SEVERE MITRAL ANNULAR CALCIFICATION WITH MODERATE MITRAL STENOSIS AND MODERATE MITRAL REGURGITATION 3. CALCIFICATION AORTIC VALVE WITH MILD AORTIC STENOSIS AND MILD AORTIC INSUFFICIENCY 4. MILD TRICUSPID REGURGITATION 5. LEFT ATRIAL ENLARGEMENT 6. MODERATE CONCENTRIC LEFT VENTRICULAR HYPERTROPHY 7. MODERATE DIASTOLIC DYSFUNCTION 8. PULMONARY HYPERTENSION WITH RIGHT VENTRICULAR SYSTOLIC PRESSURE OF 55-60 mmHg TECHNOLOGIST: ANDREA BOX
[2022-06-29] MEDS: CARBIDOPA/LEVODOPA 25/100 TAB PO SCH ×3 (08:54→13:35)
[2022-06-29] MEDS: HYDROCODONE/APAP 7.5/325 MG TAB PO PRN (08:55)
[2022-06-29] MEDS: PANTOPRAZOLE 40MG TABLET PO SCH (08:55)
[2022-06-29] MEDS: carvediloL 25 MG TAB PO SCH (08:55)
[2022-06-29] MEDS: ASPIRIN EC 81 MG TAB PO SCH (08:55)
[2022-06-29] MEDS: ENOXAPARIN 60 MG/0.6 ML SQ SCH (08:56)
[2022-06-29] MEDS: FUROSEMIDE 40 MG TABLET PO SCH (08:56)
[2022-06-29] MEDS ORDERED: lisinopriL 10 MG TAB PO SCH (09:00)
--- NOTE | 2022-06-29 10:40 | P.PN ---
Nephrology note: (S) Pt reports mild CP last night, none currently, no dyspnea at rest. General: Alert, In no apparent distress, Cooperative HEENT: Atraumatic, Normocephalic, PERRLA Neck: Supple Respiratory: Clear to auscultation bilaterally, Normal air movement Cardiovascular: No edema, Regular rate/rhythm, Systolic murmur Gastrointestinal: Soft and benign, Non-distended, No ascites Musculoskeletal: No swelling, No contractures Integumentary: No significant lesion, No tenderness/swelling Neurological: Normal speech, Normal tone, Normal affect Conclusions/Impression: A/P) 1. Abnormal results of kidney functions studies. Stage 1 JANNIE on underlying CKD Stage IIIb possibly 2nd to chronic co-morbidities with no evidence of MICHELLE, since resolved, cont to trend. ACEi was resumed at larger dose of 40 mg qd, recommend dose lowering and placing holding parameter. Pt confirms was only taking 10 mg at home so did lower dose further. 2. Hyperkalemia -spurious, repeat level acceptable but cont to monitor in the setting of ACEi resumption 3. Ischemic cardiomyopathy -LEVDP mildly elevated at 18 mmHg on admission, agreed with lasix but switched to PO and cont to monitor 4. Mod , non rheumatic -further w/u and management per cardiology 5. 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 Target BP < 130/80 half-way Juve Serrano MD, VLAD
[2022-06-29 14:05] VITALS: BP 90/43; TEMP 97
--- NOTE | 2022-06-29 16:11 | PN ---
Date of Progress Note: 06/29/2022 Subjective: Seen by bedside. No further complaints. Review of Systems: No chest pain, shortness of breath, orthopnea, or cough. No nausea, vomiting, or diarrhea. All othe r systems were reviewed, they were negative. Physical Examination: Vital Signs: Reviewed. Head and Neck: Pupils are equal, reactive to light. Intact eye movements. No JVD. No cervical lym phadenopathy. Neck is supple. Thyroid is not enlarged. Lungs: Clear to auscultation bilaterally. No rhonchi, rales, or crackles. No accessory muscle use. Heart: Regular rate and rhythm with aortic systolic murmur. Abdomen: Soft, nontender. Bowel sounds positive. No organomegaly. No masses or hernia. No rigidi ty or rebound. Extremities: No edema, clubbing, or cyanosis. Intact pulses. Skin: No rashes. Neurologic: Alert, awake, and oriented x3. No acute focal deficits appreciated. Investigations: BUN 45, creatinine 1.28. Troponin latest was 784 and hemoglobin is 9.8. Assessment And Recommendation: 1.Acute on chronic diastolic heart failure exacerbation. She appears to be euvolemic, on oral Lasix . She can be released to follow up as an outpatient. 2.Elevated troponin. She has ISR of the RCA about 70%. She needs a lithotripsy shockwave balloon a ngioplasty and possible new stent placed, and we will plan to do this as an outpatient. Meanwhile, c ontinue aspirin and Plavix. 3.Moderate with moderate regurgitation. Recommend beta- blockers for rate control to be between 50 and 60, which this established and follow up as an outpati ent. SR/MODL Voice ID: [id number] Report ID: [id number]
--- NOTE | 2022-06-29 17:48 | EKG ---
Test Date: 2022-06-27 Test Time: 21:39:11 Security Compliance Specialist: 33 MEASUREMENT RESULTS: Intervals: Rate: 76 OR: 148 QRSD: 138 QT: 438 QTc: 492 [place]: P: 31 OR: 148 QRS: -43 T: 86 INTERPRETIVE STATEMENTS: Normal sinus rhythm Left axis deviation Left ventricular hypertrophy with QRS widening and repolarization abnormality Cannot rule out Septal infarct, age undetermined Abnormal ECG Compared to ECG 06/27/2022 19:46:25 No significant changes Electronically Signed On 06-29-22 17:44:59 CUTTING AND PRINTING MACHINE OPERATOR by Sixto Mcpherson
--- NOTE | 2022-06-29 17:49 | EKG ---
Test Date: 2022-06-27 Test Time: 19:46:25 Labor Contract Analyst: 33 MEASUREMENT RESULTS: Intervals: Rate: 70 NM: 142 QRSD: 136 QT: 452 QTc: 488 [place]: P: 41 NM: 142 QRS: -41 T: 66 INTERPRETIVE STATEMENTS: Normal sinus rhythm Left axis deviation Left ventricular hypertrophy with QRS widening and repolarization abnormality Septal infarct, age undetermined Abnormal ECG Compared to ECG 06/25/2022 21:02:41 Left ventricular hypertrophy now present Early repolarization now present Myocardial infarct finding still present Electronically Signed On 06-29-22 17:45:09 SLIDE MAKER by Sixto Mcpherson
[2022-07-02] MEDS ORDERED: CLONIDINE 0.1 MG/PATCH TD SCH (09:00)
== END 2022-06-29 14:24 | disposition home health service (06) | DRG 280 ==
LOC: ER 20:43 → 2ND 23:40
PROVIDERS: ADMIT Internal Medicine Sleep Medicine; ATTEND Internal Medicine
PROC: 4A023N7 Measurement of Cardiac Sampling and Pressure, Left Heart, Percutaneous Approach (ICD-10-PCS; principal; 2022-06-26)
PROC: B2111ZZ Fluoroscopy of Multiple Coronary Arteries using Low Osmolar Contrast (ICD-10-PCS; 2022-06-26)
DX: I13.0 Hypertensive heart and chronic kidney disease with heart failure and stage 1 through stage 4 chronic kidney disease, or unspecified chronic kidney disease (principal); I21.4 Non-ST elevation (NSTEMI) myocardial infarction; I50.33 Acute on chronic diastolic (congestive) heart failure; J96.01 Acute respiratory failure with hypoxia; N17.9 Acute kidney failure, unspecified; N18.32 Chronic kidney disease, stage 3b; K21.9 Gastro-esophageal reflux disease without esophagitis; I35.0 Nonrheumatic aortic (valve) stenosis; E87.5 Hyperkalemia; G20 Parkinson's disease; I25.5 Ischemic cardiomyopathy; M81.0 Age-related osteoporosis without current pathological fracture; I25.110 Atherosclerotic heart disease of native coronary artery with unstable angina pectoris; Z60.2 Problems related to living alone; Z88.0 Allergy status to penicillin; Z79.02 Long term (current) use of antithrombotics/antiplatelets; Z79.82 Long term (current) use of aspirin; Z98.84 Bariatric surgery status; Z90.710 Acquired absence of both cervix and uterus; Z79.899 Other long term (current) drug therapy; Z20.822 Contact with and (suspected) exposure to COVID-19
CPT/HCPCS: 0240U; 36415; 71045; 76937; 78452; 80048; 80053; 80061; 80076; 81003; 81015; 82947; 83735; 83880; 84132; 84439; 84443; 84484; 85025; 85379; 85610; 92978; 93005; 93017; 93306; 93458; 93970; 96372; 96374; 99285; A9500; C1760; C1893; G0269; J0610; J1644; J1650; J1940; J2250; J2405; J2785; J3010; J7040; Q9966

== ENCOUNTER 2022-08-09 20:47 | Inpatient (IN) | payer MEDICARE, OTHER ==
--- OUTSIDE RECORDS SUMMARY | 2022-08-09 21:16 | XMS REPORT | Continuity of Care Document ---
:1945 Author Organization [facility] t Address [address] [place] [address] Care Team Providers Name Role Phone No, Pcp [facility] Primary Care Physician Unavailable Berto Leone Attending Clinician Nodal_J Attending Clinician Unavailable Cristal Velasquez MD Attending Clinician CRISTAL VELASQUEZ Attending Clinician Unavailable Dax Samaniego MD Attending Clinician Clemente Guy CRNA Attending Clinician [phone] Mariely HANCOCK, Yordy Lopez Attending Clinician [phone] Nodal_J Admitting Clinician Unavailable CRISTAL VELASQUEZ Admitting Clinician Unavailable Payers Payer Name Policy Type Policy Number Effective Date Expiration Date [facility] [place] [id number] 2021 (MEDICARE 00:00:00 REPLACEMENT HMO) Problems Condition Condition Condition Status Onset Resolution Last Treating Co mments Source Name Details Category Date Date Treatment Clinician Date Left Left Disease Active [facility] displaced displaced 03-02 ke s femoral femoral 00:00: Medical neck neck 00 Center fracture fracture Allergies, Adverse Reactions, Alerts Allergy Allergy Status Severity Reaction(s) Onset Inactive Treating Comm ents Source Name Type Date Date Clinician Penicill Propensi Active Rash [facility] adverse 00:00: Medical reaction 00 Center s PENICILL Allergy Active Med Rash [address] [facility] IN 03-02 [facility] 00:00: Medical 00 Center Social History Social Habit Start Date Stop [...] 00:00:00 non-drinker Medical Cente r (finding) History [facility] 2022-03-04 2022-03-[address] [facility] Alcohol Frequency 00:00:00 00:00:00 Medical Center Tobacco use and 2022-03-04 2022-03-[address] [facility] [address] Tete kes exposure 00:00:00 00:00:00 Medical Center History [facility] 2022-03-03 2022-03-[address] [facility] Transport Med 00:00:00 00:00:[address] History [facility] 2022-03-03 2022-03-[address] [facility] Housing Unable to 00:00:00 00:00:00 Medical Center Pay History [facility] 2022-03-03 2022-03-[address] [facility] Housing Places 00:00:00 00:00:00 Medical Ce nter Lived History [facility] 2022-03-03 2022-03-[address] [facility] Housing Homeless 00:00:00 00:00:00 Medical Center Last Year Sex Assigned At 1945 [address] [facility] 00:00:00 00:00:00 Medical Center Smoking Status Start Date Stop Date Source Never smoker [facility] Medications Ordered Filled Start Stop Current Ordering Indication Dosage Frequency Signature Comments Components Source Medication Medication Date Date Medication? Clinician (SIG) Name Name carbidopa-l Yes 2{tbl} [id number] Take [address] [facility] evodopa 9-05 [id number] tablets by [facility] (SINEMET) 11:47: 3D mouth 3 Medic al 25-100 mg 03 (three) Center per tablet times daily. MECOBALAMIN Yes 1mg QD Take [address] , VITAMIN 9-05 by mouth [facility] B12, ORAL 11:47: daily. Medica l 03 Center carbidopa-l Yes 2{tbl} [id number] Take [address] [facility] [address] evodopa 9-05 [id number] tablets by [facility] (SINEMET) 11:47: 3D mouth 3 Medic al 25-100 mg 03 (three) Center per tablet times daily. MECOBALAMIN 2021-0 Yes 1mg QD Take [address] , VITAMIN 9-05 by mouth [facility] B12, ORAL 11:47: daily. Medica l 03 Center HYDROcodone 2021-0 Yes 1{tbl} Take [address] -acetaminop 9-05 tablet by Javi es hen (NORCO 00:00: mouth Medica l 5-325) 00 every 6 Center 5-325 mg (six) per tablet hours as needed. Max Daily Amount: 4 tablets HYDROcodone 2021-0 Yes 1{tbl} Take [address] -acetaminop 9-05 tablet by Javi es hen (NORCO 00:00: mouth Medica l 5-325) 00 every 6 Center 5-325 mg (six) per tablet hours as needed. Max Daily Amount: 4 tablets traMADoL 2021-0 Yes 50mg Take [address] [facility] (ULTRAM) 50 8-25 by mouth Luke s mg tablet 00:00: every 6 Medic al 00 (six) Center hours as needed. traMADoL 2021-0 Yes 50mg Take [address] (ULTRAM) 50 8-25 by mouth Luke s mg tablet 00:00: every 6 Medic al 00 (six) Center hours as needed. cloNIDine 2021-0 Yes 1{patch Q7D [address] (CATAPRES-T 8-22 } once a [facility] TS) 0.1 00:00: week Pt Medical mg/24 hr 00 takes Center patch every Sunday.. lisinopriL 2021-0 Yes 40mg QD Take [address] (PRINIVIL,Z 8-22 by mouth Luke s ESTRIL) 40 00:00: every Medica l MG tablet 00 morning. Center pantoprazol 2021-0 Yes 40mg QD Take [address] [facility] e 8-22 by mouth [facility] (PROTONIX) 00:00: every Medica l 40 MG 00 morning. Center tablet cloNIDine 2021-0 Yes 1{patch Q7D [address] (CATAPRES-T 8-22 } once a [facility] TS) 0.1 00:00: week Pt Medical mg/24 hr 00 takes Center patch every Sunday.. lisinopriL 2021-0 Yes 40mg QD Take [address] (PRINIVIL,Z 8-22 by mouth Luke s ESTRIL) 40 00:00: every Medica l MG tablet 00 morning. Center pantoprazol 0 Yes 40mg QD Take [address] [facility] e 8-22 by mouth [facility] (PROTONIX) 00:00: every Medica l 40 MG 00 morning. Center tablet carvediloL Yes SMARTSI [facility] (COREG) 25 8-16 Tablet(s) Luke [facility] MG tablet 00:00: By Mouth Medi eleni Morning-Ev Center ening traZODone 0 Yes 100mg QD Take [address] (DESYREL) 8-16 mg by [facility] 100 MG 00:00: mouth Medical tablet 00 nightly. Center carvediloL 0 Yes [address] [facility] (COREG) 25 8-16 Tablet(s) Luke [facility] MG tablet 00:00: By Mouth Medi eleni Morning-Ev Center ening traZODone 0 Yes 100mg QD Take [address] (DESYREL) 8-16 mg by [facility]ukes 100 MG 00:00: mouth Medical tablet 00 nightly. Center TiZANidine 0 Yes 4mg Take [address] (ZANAFLEX) 7-07 by mouth [facility] 4 MG 00:00: every 6 Medical capsule 00 (six) Center hours as needed for Muscle spasms . TiZANidine 0 Yes 4mg Take 4 mg CH I [...] blood 2022-03-06 07:45:00 134 mm[Hg] [facility] Diastolic blood 2022-03-06 07:45:00 59 mm[Hg] [facility] Heart rate 2022-03-06 07:45:00 59 /min [facility] Body temperature 2022-03-06 07:45:00 36.33 Carmela [facility] Respiratory rate 2022-03-06 07:45:00 18 /min [facility] Oxygen saturation in 2022-03-06 07:45:00 97 /min [facility] Arterial blood by Medical Ce nter Pulse oximetry Body height 2022-03-02 18:00:00 160 cm [facility] Body weight 2022-03-02 18:00:00 59.421 kg [facility] BMI 2022-03-02 18:00:00 23.21 kg/m2 [facility] Procedures Procedure Date / Time Performed Performing Clinician Sour e CBC W/PLT COUNT & AUTO 2022-03-06 06:22:00 Hadnott [facility] BASIC METABOLIC PANEL 2022-03-06 06:22:00 Hadnott [facility] PHOSPHORUS 2022-03-06 06:22:00 Hadnott [facility] MAGNESIUM 2022-03-06 06:22:00 Hadnott [facility] CBC W/PLT COUNT & AUTO 2022-03-06 06:22:00 [facility] CBC W/PLT COUNT & AUTO 2022-03-05 04:17:00 Hadnott [facility] BASIC METABOLIC PANEL 2022-03-05 04:17:00 Hadnott [facility] PHOSPHORUS 2022-03-05 04:17:00 Hadnott [facility] MAGNESIUM 2022-03-05 04:17:00 Hadnott [facility] CBC W/PLT COUNT & AUTO 2022-03-05 04:17:00 Hadnott [facility] CBC W/PLT COUNT & AUTO 2022-03-04 04:58:00 Hadnott [facility] BASIC METABOLIC PANEL 2022-03-04 04:58:00 Hadnott [facility] PHOSPHORUS 2022-03-04 04:58:00 Hadnott [facility] MAGNESIUM 2022-03-04 04:58:00 Hadnott [facility] CBC W/PLT COUNT & AUTO 2022-03-04 04:58:00 Hadnott [facility] FL FLUORO NON-SPECIFIC 2022-03-03 19:02:00 Hadnott [facility] UP TO 1 HOUR Medical Center ORIF, HIP 2022-03-03 17:39:00 Hadnott [facility] CBC W/PLT COUNT & AUTO 2022-03-03 04:31:00 Hadnott [facility] BASIC METABOLIC PANEL 2022-03-03 04:31:00 Hadnott [facility] PT/APTT 2022-03-03 04:31:00 Cristal Velasquez [facility] PHOSPHORUS 2022-03-03 04:31:00 Hadnott [facility] MAGNESIUM 2022-03-03 04:31:00 Hadnott [facility] CBC W/PLT COUNT & AUTO 2022-03-03 04:31:00 Cristal Velasquez [facility] EKG-SCANNED 2022-03-02 00:00:00 ProviderElida [facility] es Scanning [facility] Plan of Care Planned Activity Planned Date Details Comments Source Future Scheduled 2023-03-[address] [facility] Test 00:00:00 [facility] Medical Cente r Screening (12+) [code = Tobacco Cessation Counseling and Screening (12+)] Future Scheduled 2023-03-[address] [facility] Test 00:00:00 Counseling and Medical Cente r Screening (12+) [code = Tobacco Cessation Counseling and Screening (12+)] Future Scheduled 2022-07-[address] [facility] Test 00:00:00 (12+) [code = Medical Center DEPRESSION SCREENING (12+)] Future Scheduled 2022-07-02 FALLS RISK SCREENING [facility] Test 00:00:00 [code = FALLS RISK Medical C enter SCREENING] Future Scheduled 2022-03-02 INFLUENZA VACCINE (#1) [facility] 00:00:00 [code = INFLUENZA Medical Ce nter VACCINE (#1)] Future Scheduled 2022-03-02 INFLUENZA VACCINE (#1) [facility] Test 00:00:00 [code = INFLUENZA Medical Ce nter VACCINE (#1)] Future Scheduled 2021-11-30 Medicare IPPE (WELCOME [facility] Test 00:00:00 TO MEDICARE) [code = Medical Center Medicare IPPE (WELCOME TO MEDICARE)] Future Scheduled 2021-11-30 Medicare IPPE (WELCOME C [...] 65+ YRS (1 - PCV)] Future Scheduled 2009 PNEUMOCOCCAL 65+ YRS [facility] Test 00:00:00 (1 - PCV) [code = Medical Ce nter PNEUMOCOCCAL 65+ YRS (1 - PCV)] Future Scheduled 1994 SHINGLES VACCINES ([address] [facility] Test 00:00:00 of 2) [code = SHINGLES Medic al Center VACCINES (1 of 2)] Future Scheduled 1994 SHINGLES VACCINES ([address] [facility] Test 00:00:00 of 2) [code = SHINGLES Medic al Center VACCINES (1 of 2)] Future Scheduled 1963 DTAP/TDAP/TD VACCINES [facility] 00:00:00 (1 - Tdap) [code = Medical C enter DTAP/TDAP/TD VACCINES (1 - Tdap)] Future Scheduled 1963 DTAP/TDAP/TD VACCINES [facility] Test 00:00:00 (1 - Tdap) [code = Medical C enter DTAP/TDAP/TD VACCINES (1 - Tdap)] Future Scheduled 1962 HEPATITIS C SCREENING [facility] 00:00:00 [code = HEPATITIS C Medical Center SCREENING] Future Scheduled 1962 HEPATITIS C SCRE[facility]ING [facility] 00:00:00 [code = HEPATITIS C Medical Center SCREENING] Future Scheduled 1945 COVID-19 VACCINE (#1) [facility] Test 00:00:00 [code = COVID-[address] VACCINE (#1)] Future Scheduled 1945 COVID-19 VACCINE (#1) [facility] Test 00:00:00 [code = COVID-[address] VACCINE (#1)] Future Scheduled 1945 DXA SCAN [code = DXA [facility] Test 00:00:00 SCAN] [facility] Center Future Scheduled 1945 DXA SCAN [code = DXA [facility] Test 00:00:00 SCAN] [facility] Encounters Start End Encounter Admission Attending Care Care Encounter Source Date/Time Date/Time Type Type Clinicians Facility Department ID 2022-05-09 2022-05-09 DARION Thomson Sulema [id number] [facility] 21:00:00 22:00:00 [id number] Medical [id number] 2022-05-08 2022-05-08 Outpatient Nodal_J DMG DMG [id number] [facility] 00:00:00 00:00:00 [id number] Medica l Group 2022-03-02 2022-03-06 [facility] [id number] 17:43:00 11:15:00 Encounter [facility] 2022-03-02 2022-03-06 [facility] [id number] 17:43:00 11:15:00 Encounter [facility] 2022-03-02 2022-03-06 Inpatient UR [facility] [id number] [facility] 17:43:00 11:15:00 [facility] 2022-03-03 2022-03-03 Anesthesia Dax Samaniego [facility] [id number] [facility] 17:39:00 19:10:00 Event [facility] 2022-03-03 2022-03-03 Anesthesia Dax Samaniego [facility] [id number] [facility] 17:39:00 19:10:00 Event [facility] 2022-03-03 2022-03-03 Surgery Hadnott, [facility] [id number] 15:30:00 16:51:00 [facility] 2022-03-03 2022-03-03 Surgery Hadnott, [facility] [id number] 15:30:00 16:51:00 [facility] 2022-03-02 2022-03-02 Travel [facility] [id number] [facility] 00:[facility]:00 00:00:00 [facility] 2022-03-02 2022-03-02 Travel [facility] [id number] [facility] 00:00:00 00:00:00 [facility] 2022-01-13 2022-01-13 Outpatient DMG DM [id number] [facility] 07:21:00 07:21:00 [id number] Medica l Group 2021-11-10 2021-11-10 Outpatient DMG DMG [id number] [facility] 12:00:00 12:00:00 [id number] Medica l Group Results Test Description Test Time Test Comments Results Result Comments Source MAGNESIUM 2022-03-06 07:32:53 Test Item Value Reference Range Interpretation Comme nts MAGNESIUM (BEAKER) (test code = 627) 1.8 mg/dL 1.5-3.0 Poke In ID - LITOOperator ID - LITOOperator ID - LITOOperator ID - LITOBASIC METABOLIC [id number] 07:31:33 Test Item Value Reference Range Interpretation [...] not appl icable for dialysis patien ts Poke In ID - LITOOperator ID - LITOOperator ID - LITOOperator ID - LITOOperator ID - LITOOperator ID - LITOOperator ID - LITOOperator ID - LITOOperator ID - [id number] 07:30:10 Test Item Value Reference Range Interpretation Comments PHOSPHORUS (BEAKER) (test code = 3.9 mg/dL 2.5-4.5 604) Poke In ID - LITOCBC W/PLT COUNT & AUTO [id number] 07:02:35 Test Item Value Reference Range Interpretation [...] 0-0 PERCENT (BEAKER) (test code = 2801) [id number] 05:56:09 Test Item Value Reference Range Interpretation Comments MAGNESIUM (BEAKER) (test code = 1.8 mg/dL 1.5-3.0 627) Poke In ID - [id number] ID - [id number] ID - [id number] ID - [id number] METABOLIC [id number] 05:54:28 Test Item Value Reference Range Interpretation [...] not appl icable for dialysis patien ts Poke In ID - [id number] ID - [id number] ID - [id number] ID - [id number] ID - [id number] ID - [id number] ID - [id number] ID - [id number] ID - [id number] 05:53:06 Test Item Value Reference Range Interpretation Comments PHOSPHORUS (BEAKER) (test code = 3.4 mg/dL 2.5-4.5 604) Poke In ID - [id number] W/PLT COUNT & AUTO [id number] 05:42:48 Test Item Value Reference Range Interpretation [...] 0-0 PERCENT (BEAKER) (test code = 2801) [id number] 06:36:18 Test Item Value Reference Range Interpretation Comments MAGNESIUM (BEAKER) (test code = 1.8 mg/dL 1.5-3.0 627) Poke In ID - LITOOperator ID - LITOOperator ID - LITOOperator ID - LITOBASIC METABOLIC [id number] 06:34:54 Test Item Value Reference Range Interpretation [...] eGF R is based on the CKD-EPI 202 equation that d oes not use a race coefficientEsti mated GFR is not as accur ate as Creatinine Mony rogers in predicting glom erular filtration rate . Estimated GFR is not appl icable for dialysis patien ts Poke In ID - LITOOperator ID - LITOOperator ID - LITOOperator ID - LITOOperator ID - LITOOperator ID - LITOOperator ID - LITOOperator ID - LITOOperator ID - [id number] 06:33:40 Test Item Value Reference Range Interpretation Comments PHOSPHORUS (BEAKER) (test code = 3.9 mg/dL 2.5-4.5 604) Poke In ID - LITOCBC W/PLT COUNT & AUTO [id number] 06:20:48 Test Item Value Reference Range Interpretation [...] 2801) FL, FLUORO, NON-SPECIFIC, UP TO 1 [id number] 19:02:00Reason for exam:->[facility]ENTER[facility]: ADORE CALVERT : 1945 Sex: FAn imaging unit was utilized for this procedure. No radiologist interpretation was requested. Refer to the EMR for findings. Refer to PACS for any patient radiation dose information.[id number] 05:21:30 Test Item Value Reference Range Interpretation Comments MAGNESIUM (BEAKER) (test code = 1.9 mg/dL 1.5-3.0 627) Poke In ID - LITOOperator ID - LITOOperator ID - LITOOperator ID - LITOBASIC METABOLIC [id number] 05:19:41 Test Item Value Reference Range Interpretation [...] not appl icable for dialysis patien ts Poke In ID - LITOOperator ID - LITOOperator ID - LITOOperator ID - LITOOperator ID - LITOOperator ID - LITOOperator ID - LITOOperator ID - LITOOperator ID - [id number] 05:19:03 Test Item Value Reference Range Interpretation Comments PROTIME (BEAKER) (test 12.0 seconds 9.3-12.0 Final Information code = 759) (Auto Output) INR (BEAKER) (test 1.10 See_Comment Final Inf ormation code = 370) (Auto Output) [Automated mess age] The system [employer] generated this result transmit pascual reference range [...] mechanical heart valves.CBC W/PLT COUNT & AUTO [id number] 05:18:32 Test Item Value Reference Range Interpretation [...] 0-0 PERCENT (BEAKER) (test code = 2801) [id number] 05:18:24 Test Item Value Reference Range Interpretation Comments PHOSPHORUS (IVETHBAILEE) (test code = 3.5 mg/dL 2.5-4.5 604) Poke In ID - SAURABH
[2022-08-09] MEDS ORDERED: IPRATROPIUM BROM 0.5MG/2.5ML ONE (21:17)
[2022-08-09] MEDS ORDERED: LEVALBUTEROL 1.25 MG/3 ML NEB ONE (21:17)
[2022-08-09] MEDS ORDERED: METHYLPREDNISOLONE 125 MG INJ ONE (21:17)
[2022-08-09] MEDS ORDERED: PIPERACIL/TAZO 3.375 GM VIAL IV ONE (21:18)
[2022-08-09] MEDS ORDERED: NA CHLORIDE 0.9% 1,000 ML ONE (21:18)
[2022-08-09] MEDS ORDERED: NA CHLORIDE 0.9% 0 ML ONE (21:18)
[2022-08-09 21:26] LABS: Absolute Lymphocytes (CBC) 1.2 K/uL (0.7-4.9); Hematocrit 36.5 % (36.0-45.0); Lymphocytes % 15.7 % (15.3-44.8); MCV 92.4 fL (80-100); RBC Red Blood Cell Count 3.95 M/uL (3.86-4.86)
[2022-08-09 21:43] LABS: Blood Gas Oxyhemoglobin 92.8 % (94-97)
[2022-08-09] MEDS ORDERED: Levofloxacin 750mg IV 750 MG/150 ML BAG IV ONE (21:43)
--- NOTE | 2022-08-09 21:54 | RAD REPORT ---
EXAM DESCRIPTION: RAD - Chest Single View - 08/09/2022 9:47 pm CLINICAL HISTORY: Cough Chest pain. COMPARISON: Chest Single View dated 06/25/2022; Chest Pa And Lat (2 Views) dated 03/01/2022 FINDINGS: Portable technique limits examination quality. Moderate bilateral pulmonary opacities are present. This may represent pulmonary edema. Small bilater al pleural effusions. The heart appears enlarged. No displaced fractures. IMPRESSION: Moderate CHF versus volume overload.
[2022-08-09] MEDS ORDERED: NITROGLYCERIN 1 GM PKT TD ONE (22:06)
[2022-08-09] MEDS ORDERED: FUROSEMIDE 40 MG/4 ML VIAL ONE (22:07)
[2022-08-09 22:20] LABS: SARS-COV-2 RT PCR NEGATIVE (NEGATIVE)
--- NOTE | 2022-08-09 22:21 | EDPHYS ---
Physician Documentation [facility] Name: Meri Anderson Age: 77 yrs Sex: Female : 1945 Arrival Date: 08/09/2022 Time: 20:53 Bed 8 Private MD: SHREE Physician Naldo Chinchilla HPI: 08/09 22:10 This 77 yrs old Female presents to ER via EMS with complaints of dyspnea, gia hypoxia, le swelling. 22:10 The patient presents with swelling. The complaints affect the right leg and left leg. gia Context: The problem was sustained at an unknown site. Onset: The symptoms/episode began/occurred today. Modifying factors: The symptoms are alleviated by remaining still, the symptoms are aggravated by movement. Associated signs and symptoms: Pertinent positives: swelling, of the right leg and left leg. The patient has shortness of breath at rest, with light activity. Duration: The symptoms are continuous, and are steadily getting worse. The patient's shortness of breath is aggravated by light activity, supine position, talking, walking, is alleviated by rest, sitting up, application of supplemental oxygen. Historical: - Allergies: 21:00 PENICILLINS; ll3 - Home Meds: 21:00 Carbidopa-Levodopa Oral [Active]; carvedilol Oral [Active]; lisinopril Oral [Active]; ll3 pantoprazole Oral [Active]; tizanidine Oral as needed [Active]; Tramadol Oral [Active]; Clonidine Transdermal patch every sunday Oral [Active]; aspirin 81 mg Oral tab daily [Active]; - PMHx: 21:00 Hypertensive disorder; Osteoporosis; Congestive heart failure; ll3 - PSHx: 21:00 Total abdominal hysterectomy; ll3 - Immunization history:: Client reports receiving the 2nd dose of the Covid vaccine. - Social history:: Smoking status: Patient/guardian denies using tobacco. - Family history:: not pertinent. ROS: 22:10 Constitutional: Negative for fever, chills, and weight loss, Eyes: Negative for injury, gia pain, redness, and discharge, ENT: Negative for injury, pain, and discharge, Neck: Negative for injury, pain, and swelling, Cardiovascular: Negative for chest pain, palpitations, and edema, Abdomen/GI: Negative for abdominal pain, nausea, vomiting, diarrhea, and constipation, Back: Negative for injury and pain, : Negative for injury, bleeding, discharge, and swelling, Neuro: Negative for headache, weakness, numbness, tingling, and seizure, Psych: Negative for depression, anxiety, suicide ideation, homicidal ideation, and hallucinations, Allergy/Immunology: Negative for hives, rash, and allergies, Endocrine: Negative for neck swelling, polydipsia, polyuria, polyphagia, and marked weight changes, Hematologic/Lymphatic: Negative for swollen nodes, abnormal bleeding, and unusual bruising. 22:10 Respiratory: Positive for cough, shortness of breath, on exertion. 22:10 MS/extremity: Positive for swelling. Exam: 22:10 Constitutional: This is a well developed, well nourished patient who is awake, alert, gia and in no acute distress. Head/Face: Normocephalic, atraumatic. Eyes: Pupils equal round and reactive to light, extra-ocular motions intact. Lids and lashes normal. Conjunctiva and sclera are non-icteric and not injected. Cornea within normal limits. Periorbital areas with no swelling, redness, or edema. ENT: Nares patent. No nasal discharge, no septal abnormalities noted. Tympanic membranes are normal and external auditory canals are clear. Oropharynx with no redness, swelling, or masses, exudates, or evidence of obstruction, uvula midline. Mucous membranes moist. Neck: Trachea midline, no thyromegaly or masses palpated, and no cervical lymphadenopathy. Supple, full range of motion without nuchal rigidity, or vertebral point tenderness. No Meningismus. Chest/axilla: Normal chest wall appearance and motion. Nontender with no deformity. No lesions are appreciated. Cardiovascular: Regular rate and rhythm with a normal S1 and S2. No gallops, murmurs, or rubs. Normal PMI, no JVD. No pulse deficits. Abdomen/GI: Soft, non-tender, with normal bowel sounds. No distension or tympany. No guarding or rebound. No evidence of tenderness throughout. Back: No spinal tenderness. No costovertebral tenderness. Full range of motion. Female : Normal external genitalia. Neuro: Awake and alert, GCS 15, oriented to person, place, time, and situation. Cranial nerves II-XII grossly intact. Motor strength 5/5 in all extremities. Sensory grossly intact. Cerebellar exam normal. Normal gait. Psych: Awake, alert, with orientation to person, place and time. Behavior, mood, and affect are within normal limits. 22:10 ECG was reviewed by the Attending Physician. 22:10 Respiratory: moderate respiratory distress is noted, Respirations: labored breathing, that is moderate, Breath sounds: rales, that are moderate, are heard diffusely, bronchial sounds, that are moderate, are scattered, rhonchi, that are mild, are scattered, stridor, is not appreciated, Respiratory rate: 24 Vital Signs: 20:53 BP 160 / 95; Pulse 93; Resp 24; Temp 97.3(TE); Pulse Ox 82% on R/A; Weight 55.79 kg ll3 (R); Height 5 ft. 3 in. (160.02 cm) (R); Pain 0/10; 22:15 BP 148 / 85; Pulse 96; Resp 24; Pulse Ox 93% on R/A; ll3 23:00 BP 149 / 82; Pulse 96; Resp 18; Pulse Ox 95% on 3 lpm NC; ll3 08/10 00:04 BP 153 / 84; Pulse 88; Resp 18; Pulse Ox 96% on R/A; kl 01:00 BP 128 / 79; Pulse 82; Resp 20; Pulse Ox 97% on 2 lpm NC; ll3 01:56 BP 160 / 94; Pulse 85; Resp 20; Pulse Ox 99% on 2 lpm NC; ll3 08 20:53 Body Mass Index 21.79 (55.79 kg, 160.02 cm) ll3 MDM: 08/09 20:55 Patient medically screened. [facility] 22:17 Differential diagnosis: Anemia Bronchitis CHF exacerbation, Chronic Obstructive gia Pulmonary Disease pneumonia, pulmonary edema, Pulmonary Embolism reactive airway disease. Antibiotic administration: Levaquin given. Immunization status: Pneumococcal vaccine: Influenza vaccine: within last 5 years. Data reviewed: vital signs, nurses notes, EMS record, lab test result(s), EKG, radiologic studies, CT scan, plain films. Consideration of Admission/Observation Patient was admitted/placed on observation. Escalation of care including admission/observation considered. Test considered but Not performed: MRI: of the chest. Other Details echo not available. 08/09 21:01 Order name: Basic Metabolic Panel; Complete Time: 23:00 gia 08/09 21:01 Order name: CBC with Diff; Complete Time: 21:57 [facility] 08/09 21:01 Order name: LFT's; Complete Time: 23:00 [facility] 08/09 21:01 Order name: Magnesium; Complete Time: 23:00 [facility] 08/09 21:01 Order name: NT PRO-BNP; Complete Time: 23:00 [facility] 08/09 21:01 Order name: PT-INR; Complete Time: 23:00 [facility] 08/09 21:01 Order name: Troponin HS; Complete Time: 23:00 [facility] 08/09 21:01 Order name: Type And Screen; Complete Time: 23:00 [facility] 08/09 21:01 Order name: Blood Culture Adult (2) [facility] 08/09 21:01 Order name: ABG; Complete Time: 00:04 [facility] 08/09 21:01 Order name: COVID-19/FLU A+B; Complete Time: 23:00 [facility] 08/09 21:03 Order name: Lactate w/ 2H reflex if indic.; Complete Time: 21:57 [facility] 08/09 22:51 Order name: Type and Screen; Complete Time: 00:04 [facility] 08/09 23:41 Order name: Urine Dipstick-Ancillary; Complete Time: 00:04 [facility] 08/09 21:01 Order name: XRAY Chest (1 view); Complete Time: 21:57 [facility] 08/09 22:10 Order name: US Extremity Venous W Compression Karsten [facility] 08/09 23:41 Order name: Thorax Wo Con EDMS 0209 01:57 Order name: Urine Dipstick-Ancillary; Complete Time: 02:45 [facility] 08/09 21:01 Order name: EKG; Complete Time: 21:01 [facility] 08/09 21:01 Order name: Cardiac monitoring; Complete Time: 21:31 [facility] 08/09 21:01 Order name: EKG - Nurse/Tech; Complete Time: 21:18 [facility] 08/09 21:01 Order name: IV Saline Lock; Complete Time: 21:18 [facility] 08/09 21:01 Order name: Labs collected and sent; Complete Time: 21:18 [facility] 08/09 21:01 Order name: O2 Per Protocol; Complete Time: 21:31 [facility] 08/09 21:01 Order name: O2 Sat Monitoring; Complete Time: 21:31 [facility] 08/09 21:01 Order name: Urine Dipstick-Ancillary (obtain specimen); Complete Time: 01:56 gia 08/09 21:03 Order name: IV Saline Lock - Large Bore; Complete Time: 21:18 gia EC:10 Rate is 111 beats/min. Rhythm is regular. QRS [place] is Normal. DE interval is normal. gia QRS interval is normal. QT interval is normal. No Q waves. T waves are Normal. No ST changes noted. Clinical impression: Sinus tachycardia and No evidence of ischemia. Administered Medications: 21:57 Discontinued: NS 0.9% 1000 ml IV at 125 ml/hr continuous gia 21:18 Drug: Xopenex (levalbuterol) 3.75 mg Route: Inhalation; 3 21:18 Drug: AtroVENT (ipratropium) Aerosol 0.5 mg Route: Inhalation; 3 21:30 Drug: NS 0.9% 1000 ml Route: IV; Rate: 125 ml/hr; Site: right antecubital; 3 21:32 Drug: SOLU-Medrol (methylPrednisoLONE) 125 mg Route: IVP; Site: right antecubital; 3 08/10 02:26 Follow up: Response: No adverse reaction [facility] 08/09 21:34 Not Given (Duplicate Order): Zosyn (piperacillin-tazobactam) 3.375 grams IVPB once over gia 60 mins; (mix in NS 100 mL) 21:43 Drug: levofloxacin 750 mg Volume: 150 ml; Route: IVPB; Infused Over: 90 mins; Site: ll3 right antecubital; 23:40 Follow up: Response: No adverse reaction; IV Status: Completed infusion; IV Intake: ll3 150ml 22:15 Drug: Nitro-Bid (nitroglycerin) Ointment 2 % 1 inches Route: Transdermal; Site: ll3 anterior chest wall; 08/10 02:27 Follow up: Response: No adverse reaction [facility] 08/09 22:15 Drug: Lasix (furosemide) 40 mg Route: IVP; Site: right antecubital; 3 08/10 02:26 Follow up: Response: No adverse reaction 3 00:00 Drug: Lovenox (enoxaparin) 1 mg/kg Route: Sub-Q; Site: right lower abdomen; kl 02:27 Follow up: Response: No adverse reaction 3 00:00 Drug: Aspirin Chewable Tablet 162 mg Route: PO; kl 02:27 Follow up: Response: No adverse reaction ll3 00:00 Drug: Pepcid (famotidine) 20 mg Route: IVP; Site: right antecubital; kl 02: Follow up: Response: No adverse reaction ll3 00:01 Drug: Coreg (carvedilol) 12.5 mg Route: PO; kl 02: Follow up: Response: No adverse reaction ll3 Disposition Summary: 08/09/22 22:20 Hospitalization Ordered Hospitalization Status: Inpatient Admission gia Provider: Erwin Chen cha Location: Telemetry/MedSurg (Inpatient) gia Condition: Fair gia Problem: new gia Symptoms: have improved gia Bed/Room Type: Standard gia Room Assignment: 202(08/10/22 01:39) cg Diagnosis - Unspecified combined systolic (congestive) and diastolic (congestive) heart failure gia - Cardiomegaly gia - Hypoxemia gia - Essential (primary) hypertension gia - Non ST elevation AR gia - Hyperkalemia gia - Unspecified kidney failure - insufficency gia - Pleural effusion, not elsewhere classified - bilateral moderate to large gia - Pneumonia due to other specified bacteria - right lower lobe gia - Atelectasis gia Forms: - Medication Reconciliation Form gia - SBAR form gia Signatures: Dispatcher [employer] EDNe Starr RN RN kl Anderson, Corey, MD MD cha Garcia, Cindy, RN RN cg Loubet, Lynsea, RN RN ll3 Yolanda Rodriguez PA-C PATricia sb4 Corrections: (The following items were deleted from the chart) 08/09 21:06 21:00 Allergies: Penetran + Plus; ll3 ll3 23:41 21:02 Chest For PE Angio+CT.RAD.BRZ ordered. EDMS EDMS 08/10 01:39 08/09 22:20 gia cg 08/10 01:49 08/09 21:01 Li ordered. gia ll3
--- NOTE | 2022-08-09 22:21 | ER ---
Nurse's Notes [facility] Name: Meri Anderson Age: 77 yrs Sex: Female : 1945 Arrival Date: 08/09/2022 Time: 20:53 Bed 8 Private MD: Diagnosis: Unspecified combined systolic (congestive) and diastolic (congestive) heart failure;Cardiomegaly;Hypoxemia;Essential (primary) hypertension;Non ST elevation [place];Hyperkalemia;Unspecified kidney failure-insufficency;Pleural effusion, not elsewhere classified-bilateral moderate to large;Pneumonia due to other specified bacteria-right lower lobe;Atelectasis Presentation: 08/09 20:53 Chief complaint: EMS states: Toned out for difficulty breathing, EMS state pt O2 sats ll3 were in the low 70's upon arrival, states pt couldn't talk initially and was diaphoretic, Pt states SOB started at noon today and progressively got worse. Ebola Screen: No symptoms or risks identified at this time. Initial Sepsis Screen: Does the patient meet any 2 criteria? RR > 20 per min. HR > 90 bpm. Does the patient have a suspected source of infection? No. Patient's initial sepsis screen is negative. Risk Assessment: Do you want to hurt yourself or someone else? Patient reports no desire to harm self or others. Onset of symptoms was August 09, 2022 at 12:00. Care prior to arrival: Medication(s) given: albuterol and Atrovent duo neb [place] Med neb given. 20:53 Method Of Arrival: EMS: [facility] 3 20:53 Acuity: LORENZO 2 ll3 20:53 Coronavirus screen: Vaccine status: Patient reports receiving the 2nd dose of the covid ll3 vaccine. difficulty breathing, shortness of breath. Triage Assessment: 21:00 General: Appears distressed, Behavior is cooperative, anxious. Pain: Denies pain. ll3 Neuro: Level of Consciousness is awake, alert, obeys commands, Oriented to person, place, time, situation. Cardiovascular: Reports shortness of breath, Denies chest pain, palpitations, Rhythm is sinus rhythm. Respiratory: Reports shortness of breath at rest on exertion since Noon today Airway is patent Respiratory effort is labored. Derm: Skin is pink, warm \T\ dry. Historical: - Allergies: 21:00 PENICILLINS; ll3 - Home Meds: 21:00 Carbidopa-Levodopa Oral [Active]; carvedilol Oral [Active]; lisinopril Oral [Active]; ll3 pantoprazole Oral [Active]; tizanidine Oral as needed [Active]; Tramadol Oral [Active]; Clonidine Transdermal patch every sunday Oral [Active]; aspirin 81 mg Oral tab daily [Active]; - PMHx: 21:00 Hypertensive disorder; Osteoporosis; Congestive heart failure; ll3 - PSHx: 21:00 Total abdominal hysterectomy; ll3 - Immunization history:: Client reports receiving the 2nd dose of the Covid vaccine. - Social history:: Smoking status: Patient/guardian denies using tobacco. - Family history:: not pertinent. Screenin:[facility] ED Fall Risk Assessment (Adult) History of falling in the last 3 months, ll3 including since admission No falls in past 3 months (0 pts) Confusion or Disorientation No (0 pts) Intoxicated or Sedated No (0 pts) Impaired Gait No (0 pts) Mobility Assist Device Used No (0 pt) Altered Elimination No (0 pt) Score/Fall Risk Level 0 - 2 = Low Risk Oriented to surroundings, Maintained a safe environment, Educated pt \T\ family on fall prevention, incl call for assistance when getting out of bed. Abuse screen: Denies threats or abuse. Denies injuries from another. Nutritional screening: No deficits noted. Tuberculosis screening: No symptoms or risk factors identified. Assessment: 21:00 General: See triage assessment. ll3 21:06 Reassessment: Place pt on non-rebreather, O2 sats 82%, Naldo abbasi MD. ll3 22:00 Reassessment: No changes from previously documented assessment. Patient and/or family ll3 updated on plan of care and expected duration. Pain level reassessed. Pt on 4 L/NC tolerating well, ERP notified. Vital Signs: 20:53 BP 160 / 95; Pulse 93; Resp 24; Temp 97.3(TE); Pulse Ox 82% on R/A; Weight 55.79 kg ll3 (R); Height 5 ft. 3 in. (160.02 cm) (R); Pain 0/10; 22:15 BP 148 / 85; Pulse 96; Resp 24; Pulse Ox 93% on R/A; ll3 23:00 BP 149 / 82; Pulse 96; Resp 18; Pulse Ox 95% on 3 lpm NC; ll3 09 00:04 BP 153 / 84; Pulse 88; Resp 18; Pulse Ox 96% on R/A; kl 01:00 BP 128 / 79; Pulse 82; Resp 20; Pulse Ox 97% on 2 lpm NC; ll3 01:56 BP 160 / 94; Pulse 85; Resp 20; Pulse Ox 99% on 2 lpm NC; ll3 08/09 20:53 Body Mass Index 21.79 (55.79 kg, 160.02 cm) ll3 ED Course: 08/09 20:53 Patient arrived in ED. ll3 20:54 Naldo Chinchilla MD is Attending Physician. gia 21:00 Triage completed. ll3 21:00 Arm band placed on Patient placed in an exam room, on a stretcher, on alarm security or surveillance monitor, ll3 on pulse oximetry. EKG completed in triage. Results shown to MD. 21:18 Inserted saline lock: 20 gauge in right forearm, using aseptic technique. ,using oe aseptic technique. by Ericka Blood collected. 21:18 Lactate w/ 2H reflex if indic. Sent. oe 21:18 Blood Culture Adult (2) Sent. oe 21:18 Type And Screen Sent. oe 21:18 Basic Metabolic Panel Sent. oe 21:18 CBC with Diff Sent. oe 21:18 LFT's Sent. oe 21:19 Magnesium Sent. oe 21:19 NT PRO-BNP Sent. oe 21:19 PT-INR Sent. oe 21:19 Troponin HS Sent. oe 21:49 XRAY Chest (1 view) In Process Unspecified. EDMS 22:16 Patient has correct armband on for positive identification. Placed in gown. Bed in low ll3 position. Call light in reach. Side rails up X2. Client placed on continuous cardiac and pulse oximetry monitoring. NIBP monitoring applied. 22:19 Erwin Chen MD is Hospitalizing Provider. gia 22:51 Notified ED physician of a critical lab result(s). troponin 202.1. kl 23:24 US Extremity Venous W Compression Karsten In Process Unspecified. EDMS 23:53 Thorax Wo Con In Process Unspecified. EDMS 08/10 01:57 No provider procedures requiring assistance completed. ll3 02:38 Patient admitted, IV remains in place. ll3 Administered Medications: 08/09 21:57 Discontinued: NS 0.9% 1000 ml IV at 125 ml/hr continuous gia 21:18 Drug: Xopenex (levalbuterol) 3.75 mg Route: Inhalation; ll3 21:18 Drug: AtroVENT (ipratropium) Aerosol 0.5 mg Route: Inhalation; ll3 21:30 Drug: NS 0.9% 1000 ml Route: IV; Rate: 125 ml/hr; Site: right antecubital; ll3 21:32 Drug: SOLU-Medrol (methylPrednisoLONE) 125 mg Route: IVP; Site: right antecubital; ll3 08/10 02:26 Follow up: Response: No adverse reaction 3 08/09 21:34 Not Given (Duplicate Order): Zosyn (piperacillin-tazobactam) 3.375 grams IVPB once over gia 60 mins; (mix in NS 100 mL) 21:43 Drug: levofloxacin 750 mg Volume: 150 ml; Route: IVPB; Infused Over: 90 mins; Site: ll3 right antecubital; 23:40 Follow up: Response: No adverse reaction; IV Status: Completed infusion; IV Intake: ll3 150ml 22:15 Drug: Nitro-Bid (nitroglycerin) Ointment 2 % 1 inches Route: Transdermal; Site: 3 anterior chest wall; 08/10 02:27 Follow up: Response: No adverse reaction 3 08/09 22:15 Drug: Lasix (furosemide) 40 mg Route: IVP; Site: right antecubital; ll3 08/10 02:26 Follow up: Response: No adverse reaction ll3 00:00 Drug: Lovenox (enoxaparin) 1 mg/kg Route: Sub-Q; Site: right lower abdomen; kl 02:27 Follow up: Response: No adverse reaction ll3 00:00 Drug: Aspirin Chewable Tablet 162 mg Route: PO; kl 02:27 Follow up: Response: No adverse reaction ll3 00:00 Drug: Pepcid (famotidine) 20 mg Route: IVP; Site: right antecubital; kl 02:27 Follow up: Response: No adverse reaction ll3 00:01 Drug: Coreg (carvedilol) 12.5 mg Route: PO; kl 02:27 Follow up: Response: No adverse reaction ll3 Medication: 01:58 VIS not applicable for this client. ll3 Intake: 08/09 23:40 IV: 150ml; Total: 150ml. ll3 Outcome: 22:20 Decision to Hospitalize by Provider. gia 08/10 02:38 Admitted to Med/surg accompanied by tech, via wheelchair, room 202, with oxygen, with ll3 chart, Report called to JUAN Padilla Condition: stable Instructed on the need for admit, Demonstrated understanding of instructions. 02:56 Patient left the ED. kl Signatures: Dispatcher [employer] EDNe Starr RN RN Naldo Curtis MD MD cha Espinosa, Orlando oe Loubet, Lynsea, RN RN ll3 Corrections: (The following items were deleted from the chart) 08/09 21:06 21:00 Allergies: Penetran + Plus; ll3 ll3 21:20 21:18 Inserted saline lock: 20 gauge in right forearm, using aseptic technique. Blood oe collected. oe
[2022-08-09 22:37] LABS: Protime INR 1.13
[2022-08-09 22:44] LABS: Bilirubin Direct 0.2 mg/dL (0-0.2); Bilirubin Total 0.6 mg/dL (0.2-1.0); Magnesium 2.4 mg/dL (1.6-2.4); Potassium 5.3 mmol/L (3.5-5.1); Protein, Total 6.8 g/dL (6.4-8.2)
[2022-08-09 22:51] LABS: Troponin High Sensitivity 232.1 pg/mL (<58.9)
[2022-08-09] MEDS ORDERED: carvediloL 6.25 MG TAB ONE (23:26)
[2022-08-09] MEDS ORDERED: ASPIRIN 81 MG CHEWABLE TABLET ONE (23:26)
[2022-08-09] MEDS ORDERED: FAMOTIDINE 20 MG/2 ML VIAL IV ONE (23:26)
[2022-08-09] MEDS ORDERED: ENOXAPARIN 60 MG/0.6 ML SQ ONE (23:26)
[2022-08-09 23:40] LABS: Urine Blood Negative (Negative); Urine Glucose Negative (Negative); Urine Protein Negative (Negative); Urine Specific Gravity 1.015 (1.005-1.030); Urine pH 6.5 (5.0-7.0)
--- NOTE | 2022-08-10 00:53 | P.HP ---
Certification for Inpatient Patient admitted to: Inpatient With expected LOS: >2 Midnights Patient will require the following post-hospital care: None Practitioner: I am a practitioner with admitting privileges, knowledge of patient current condition, hospital course, and medical plan of care. Services: Services provided to patient in accordance with Admission requirements found in Title 42 Section 412.3 of the Code of Federal Regulations Patient History Date of Service: 08/10/22 Reason for admission: CHF Exacerbation History of Present Illness: Patient is a 77 year old female with past medical history of CAD, chronic diastolic CHF, and hypertension who presented to the emergency department via EMS with complaints of shortness of breath and chest pain. Patient reports that she has been out of her medications for about 3 days now. She started to feel short of breath this afternoon. She was diaphoretic and saturating 70% on RA for EMS. She was placed on supplemental oxygen and improved. Her labs are significant for hemoglobin 11.8, potassium 5.3, chloride 109, BUN 45, creatinine 1.36, troponin 232, BNP 4787, covid/flu negative. Chest CT showed "Moderate to large bilateral pleural effusions with suggestion of right lower lobe pneumonia and associated areas of atelectasis within the left lower lobe and lingula. Large left thyroid nodule. Recommend thyroid ultrasound follow-up." In the emergency department, she was treated with Solu-Medrol, Levaquin, 40 mg Lasix, Pepcid, aspirin, therapeutic Lovenox, and carvedilol. Patient reports sig nificant improvement in symptoms. She is admitted for further management. Allergies Penicillins Allergy (Verified 03/01/22 23:08) Rash Home medications list reviewed: Yes Home Medications: Carbidopa/Levodopa [Sinemet 25-100 mg Tablet] 2 tab PO TID 03/02/22 Carvedilol [Coreg] 25 mg PO BID 03/02/22 Lisinopril [Zestril] 40 mg PO DAILY 03/02/22 Pantoprazole [Protonix Tab*] 40 mg PO DAILY 03/02/22 Tizanidine [Zanaflex*] 4 mg PO Q6HP PRN 03/02/22 cloNIDine [Clonidine] 0.1 mg TD EVERY 7TH DAY 03/02/22 Hydrocodone Bit/Acetaminophen [[place] 7.5-325 Tablet] 1 tab PO Q6HP PRN 06/26/22 Trazodone [Desyrel*] 200 mg PO BEDTIME PRN 06/26/22 Aspirin [Aspirin EC 81 MG] 81 mg PO DAILY #30 tab 06/27/22 Atorvastatin Calcium [Lipitor] 40 mg PO BEDTIME #30 tab 06/27/22 Clopidogrel Bisulfate [Plavix] 75 mg PO DAILY #30 tab 06/27/22 Furosemide [Lasix*] 40 mg PO DAILY #30 tab 06/27/22 - Past Medical/Surgical History Diabetic: No -: Hypertension -: GERD -: Aortic stenosis -: Congestive Heart Failure -: Osteoporosis -: Hip surgery -: Gastric bypass -: D&C -: Hysterectomy Psychosocial/ Personal History: Patient lives at home alone. - Family History Father -: Diabetes Brother -: Diabetes Sister -: Diabetes Mother -: Other (see notes) Notes: Dementia - Social History Smoking Status: Never smoker Alcohol use: No CD- Drugs: No Caffeine use: Yes Review of Systems General: Sweats Respiratory: Shortness of Breath Cardiovascular: Chest Pain Physical Examination - Vital Signs Temperature: 97.3 F Blood Pressure: 153/84 Pulse: 88 Respirations: 18 Pulse Ox (%): 96 (2L NC) - Physical Exam General: Alert, In no apparent distress HEENT: Atraumatic, EOMI, Sclerae nonicteric Neck: Supple, 2+ carotid pulse no bruit, No LAD Respiratory: Crackles/rales, Expiratory wheezes Cardiovascular: Regular rate/rhythm, Normal S1 S2 Gastrointestinal: Normal bowel sounds, No tenderness Musculoskeletal: No tenderness Integumentary: No rashes Neurological: Normal speech, Normal affect - Studies Laboratory Data (last 24 hrs) 08/09/22 21:55: PT 12.4, INR 1.13 08/09/22 21:55: Sodium 140, Potassium 5.3 H, BUN 45 H, Creatinine 1.36 H, Glucose 146 H, Magnesium 2.4, Total Bilirubin 0.6, AST 35, ALT 14, Alkaline Phosphatase 71 08/09/22 21:05: WBC 7.50, Hgb 11.8 L, Hct 36.5, Plt Count 204 Assessment and Plan - Problems (Diagnosis) (1) Congestive heart failure Current Visit: Yes Status: Acute Qualifiers: Heart failure type: diastolic Heart failure chronicity: acute on chronic Qualified Code(s): I50.33 - Acute on chronic diastolic (congestive) heart failure (2) Hypertension Current Visit: Yes Status: Chronic Qualifiers: Hypertension type: primary hypertension Qualified Code(s): I10 - Essential (primary) hypertension (3) Acute respiratory failure with hypoxia Current Visit: Yes Status: Acute (4) Pneumonia Current Visit: Yes Status: Acute Qualifiers: Pneumonia type: due to unspecified organism Laterality: left Lung location: lower lobe of lung Qualified Code(s): J18.9 - Pneumonia, unspecified organism (5) Anemia Current Visit: Yes Status: Chronic Qualifiers: Anemia type: unspecified type Qualified Code(s): D64.9 - Anemia, unspecified (6) Coronary artery disease Current Visit: Yes Status: Chronic Qualifiers: Coronary Disease-Associated Artery/Lesion type: [place] artery [place] vs. transplanted heart: [place] heart Associated angina: without angina Qualified Code(s): I25.10 - Atherosclerotic heart disease of [place] coronary artery without angina pectoris - Plan Patient is admitted for further management of CHF exacerbation and pneumonia. Continue IV lasix BID and consult cardiology. Fluid restriction. Monitor intake and output. Levaquin for pneumonia. Pulmonology consult and incentive spirometry. Elevated troponin likely secondary to demand ischemia. Continue to trend. Anemia appears stable. Continue daily aspirin and atorvastatin. Monitor and replete electrolytes per protocol. Reconcile and continue home medications. Lovenox for VTE prophylaxis. Full code. Discharge Plan: Home Plan to discharge in: Greater than 2 days - Advance Directives Does patient have a Living Will: No Does patient have a Durable POA for Healthcare: Yes - Code Status/Comfort Care Code Status Assessed: Yes Code Status: Full Code Physician Review: Patient Assessed, Agree with Above Assessment and Plan Critical Care: No Time Spent Managing Pts Care (In Minutes): 50
[2022-08-10 01:57] LABS: Urine Blood Negative (Negative); Urine Glucose Negative (Negative); Urine Protein Negative (Negative); Urine Specific Gravity 1.015 (1.005-1.030); Urine pH 6.5 (5.0-7.0)
[2022-08-10] MEDS ORDERED: ALBUTEROL 2.5 MG/3 ML NEB SOL NEB PRN ×2 (02:06→12:00)
[2022-08-10] MEDS ORDERED: ONDANSETRON 4 MG/2 ML VIAL IV PRN (02:06)
[2022-08-10] MEDS ORDERED: ACETAMINOPHEN 500 MG TAB PO PRN (02:06)
[2022-08-10] MEDS ORDERED: IPRATROPIUM BROM 0.5MG/2.5ML NEB PRN (03:00)
[2022-08-10 03:08] VITALS: BMI 22.0
[2022-08-10 03:44] LABS: Absolute Lymphocytes (CBC) 0.4 K/uL (0.7-4.9); Hematocrit 35.5 % (36.0-45.0); Lymphocytes % 7.2 % (15.3-44.8); RBC Red Blood Cell Count 3.86 M/uL (3.86-4.86)
[2022-08-10] MEDS ORDERED: TIZANIDINE 4 MG TABLET PO PRN (03:47)
[2022-08-10] MEDS ORDERED: TRAZODONE 50 MG TABLET PO PRN (03:47)
[2022-08-10] MEDS: HYDROCODONE/APAP 7.5/325 MG TAB PO PRN ×2 (04:02→21:15)
[2022-08-10 04:05] LABS: Magnesium 2.1 mg/dL (1.6-2.4); Phosphorus 3.5 mg/dL (2.5-4.9); Potassium 5.3 mmol/L (3.5-5.1)
[2022-08-10 04:18] LABS: Troponin High Sensitivity 1158.2 pg/mL (<58.9)
[2022-08-10] MEDS ORDERED: D50W 25 GM/50 ML SYRINGE IV ONE (04:26)
[2022-08-10] MEDS ORDERED: CALCIUM GLUC 10% INJ 4.65 MEQ in NA CHLORIDE 0.9% 100 ML IV ONE (04:26)
[2022-08-10] MEDS ORDERED: D50W 25 GM/50 ML SYRINGE IV PRN (04:26)
[2022-08-10] MEDS ORDERED: GLUCAGON 1 MG/VIAL IM PRN (04:26)
[2022-08-10] MEDS ORDERED: INSULIN -REGULAR HUMAN 50 UNIT/0.5 ML ML IV ONE (04:30)
[2022-08-10 04:54] LABS: Blood Morphology Comment NOT SEEN (NOT SEEN); Platelet Estimate ADEQ
[2022-08-10] MEDS ORDERED: D10W 125 ML IV PRN (05:35)
[2022-08-10] MEDS ORDERED: CALCIUM GLUCONATE 1 GM IVPB 1 GM/50 ML BAG IV ONE (05:41)
--- NOTE | 2022-08-10 07:54 | EKG ---
Test Date: 2022-08-09 Test Time: 21:01:30 Sales Floor Manager: JOSE MEASUREMENT RESULTS: Intervals: Rate: 111 NV: 164 QRSD: 144 QT: 414 QTc: 563 [place]: P: 13 NV: 164 QRS: -84 T: 51 INTERPRETIVE STATEMENTS: Sinus tachycardia with frequent premature ventricular complexes Right bundle branch block Left anterior fascicular block Bifascicular block Abnormal ECG Electronically Signed On 08-10-22 07:53:56 POLICE OFFICER CRIME PREVENTION by Sixto Mcpherson
[2022-08-10] MEDS ORDERED: ENOXAPARIN 30 MG/0.3 ML SQ SCH ×2 (09:00→21:00)
[2022-08-10] MEDS: CARBIDOPA/LEVODOPA 25/100 TAB PO SCH ×3 (09:02→17:08)
[2022-08-10] MEDS: PANTOPRAZOLE 40MG TABLET PO SCH (09:03)
[2022-08-10] MEDS: carvediloL 25 MG TAB PO SCH ×2 (09:03→21:13)
[2022-08-10] MEDS: ASPIRIN EC 81 MG TAB PO SCH (09:03)
[2022-08-10] MEDS: lisinopriL 10 MG TAB PO SCH (09:03)
[2022-08-10] MEDS: FUROSEMIDE 40 MG/4 ML VIAL IV SCH ×2 (09:03→17:08)
--- NOTE | 2022-08-10 10:33 | P.PN ---
Date of Service: 08/10/22 Patient seen and examined. She states she is feeling much better today and her shortness of breath has significantly improved. She was sitting on the edge of the bed during my examination. On lung auscultation-breath sounds diminished in bilateral bases, no rhonchi. Diagnosis: Bilateral pleural effusion Acute on chronic diastolic heart failure Mitral valve regurgitation Pulmonary hypertension Pneumonia. Chronic kidney disease stage III-at baseline Plan: Antibiotics IV Lasix. Monitor intake and output. Monitor renal function. Diagnostic and therapeutic thoracentesis She is stable on room air.
--- NOTE | 2022-08-10 12:16 | P.CNS ---
Chief Complaint: CHF Exacerbation History of Present Illness: Patient is a 77 year old female with past medical history of CAD, chronic diastolic CHF, and hypertension who presented to the emergency department via EMS with complaints of shortness of breath and chest pain. Patient reports that she has been out of her medications for about 3 days now. She started to feel short of breath this afternoon. She was diaphoretic and saturating 70% on RA for EMS. She was placed on supplemental oxygen and improved. Her labs are significant for hemoglobin 11.8, potassium 5.3, chloride 109, BUN 45, creatinine 1.36, troponin 232, BNP 4787, covid/flu negative. Chest CT showed "Moderate to large bilateral pleural effusions with suggestion of right lower lobe pneumonia and associated areas of atelectasis within the left lower lobe and lingula. Large left thyroid nodule. Recommend thyroid ultrasound follow-up." In the emergency department, she was treated with Solu-Medrol, Levaquin, 40 mg Lasix, Pepcid, aspirin, therapeutic Lovenox, and carvedilol. Patient reports significant improvement in symptoms. She is admitted for further management. Allergies Penicillins Allergy (Verified 03/01/22 23:08) Rash Home Medications: Carbidopa/Levodopa [Sinemet 25-100 mg Tablet] 2 tab PO TIDWM 03/02/22 Carvedilol [Coreg] 25 mg PO BID 03/02/22 Pantoprazole [Protonix Tab*] 40 mg PO DAILY 03/02/22 Tizanidine [Zanaflex*] 4 mg PO Q6HP PRN 03/02/22 cloNIDine [Clonidine] 0.1 mg TD EVERY 7TH DAY 03/02/22 Hydrocodone Bit/Acetaminophen [[place] 7.5-325 Tablet] 1 tab PO Q6HP PRN 06/26/22 Trazodone [Desyrel*] 200 mg PO BEDTIME PRN 06/26/22 Aspirin [Aspirin EC 81 MG] 81 mg PO DAILY #30 tab 06/27/22 Atorvastatin Calcium [Lipitor] 40 mg PO BEDTIME #30 tab 06/27/22 Furosemide [Lasix*] 40 mg PO DAILY #30 tab 06/27/22 lisinopriL [Lisinopril] 10 mg PO DAILY 08/10/22 - Past Medical/Surgical History Diabetic: No -: Hypertension -: GERD -: Aortic stenosis -: Congestive Heart Failure -: Osteoporosis -: Hip surgery -: Gastric bypass -: D&C -: Hysterectomy Psychosocial/ Personal History: Patient lives at home alone. - Family History Father Medical History: Diabetes Brother Medical History: Diabetes Sister Medical History: Diabetes Mother Medical History: Other (see notes) Notes: Dementia - Social History Alcohol use: Yes CD- Drugs: No Caffeine use: Yes Place of Residence: Home Physical Examination Temp Pulse Resp BP Pulse Ox 97.8 F 82 18 145/86 H 95 08/10/22 08:00 08/10/22 08:00 08/10/22 08:00 08/10/22 08:00 08/10/22 08:00 Laboratory Data (last 24 hrs) 08/09/22 21:55: PT 12.4, INR 1.13 08/09/22 21:55: Sodium 140, Potassium 5.3 H, BUN 45 H, Creatinine 1.36 H, Glucose 146 H, Magnesium 2.4, Total Bilirubin 0.6, AST 35, ALT 14, Alkaline Phosphatase 71 08/09/22 21:05: WBC 7.50, Hgb 11.8 L, Hct 36.5, Plt Count 204
--- NOTE | 2022-08-10 12:42 | RAD REPORT ---
EXAM DESCRIPTION: US - Thoracentesis w/ US Guide - 08/10/2022 12:10 pm CLINICAL HISTORY: Pleural effusion. Parapneumonic effusion COMPARISON: Thorax Wo Con dated 08/09/2022; Chest Single View dated 08/10/2022 FINDINGS: Preoperative diagnosis: Pleural effusion Post operative diagnosis: Same Conscious Sedation: None. Estimated blood loss: None Specimens:Approximately 40 mL of fluid was sent for requested lab studies. The patient was placed in the upright recumbent position and the right chest wall was prepped and frances ped in the usual sterile fashion. 1% Lidocaine was infiltrated into the soft tissues for local anest hesia. Under sonographic guidance, a thoracentesis needle and 6 [place] catheter was advanced into th e right pleural space. Approximately 900 mL serosanguineous fluid was aspirated. Samples were sent to the lab for requested analysis. The patient tolerated the procedure without immediate complication a nd transferred to the floor in stable condition. IMPRESSION: Successful ultrasound-guided thoracentesis as detailed.
--- NOTE | 2022-08-10 12:43 | RAD REPORT ---
EXAM DESCRIPTION: RADChest Single View08/10/2022 12:14 pm CLINICAL HISTORY: S/P THORACENTESIS COMPARISON: Chest Single View dated 08/09/2022; Chest Single View dated 06/25/2022; Chest Pa And Lat ( 2 Views) dated 03/01/2022 FINDINGS: No pneumothorax. Partial improvement of perihilar airspace opacities and interstitial prom inence. Slight interval partial improvement of the layering left-sided small to moderate effusion. Ma rked interval improvement of the right-sided effusion following thoracentesis. The cardiomediastinal contours are unremarkable. IMPRESSION: Interval improvement as above. No pneumothorax following thoracentesis.
--- NOTE | 2022-08-10 12:53 | P.CNS ---
Date of Consult: 08/10/22 Chief Complaint: CHF Exacerbation History of Present Illness: Patient is 69 years of age with a past medical history of coronary artery disease chronic diastolic heart failure and having problems since [place] was admitted to the hospital underwent a cardiac cath seen by Dr. Mcpherson as an outpatient this time became acutely worse more short of breath and diaphoretic low oxygen saturation and was admitted to the hospital is currently s/p right- sided thoracentesis [place] any fever chills chest pain Allergies Penicillins Allergy (Verified 03/01/22 23:08) Rash Home Medications: Carbidopa/Levodopa [Sinemet 25-100 mg Tablet] 2 tab PO TIDWM 03/02/22 Carvedilol [Coreg] 25 mg PO BID 03/02/22 Pantoprazole [Protonix Tab*] 40 mg PO DAILY 03/02/22 Tizanidine [Zanaflex*] 4 mg PO Q6HP PRN 03/02/22 cloNIDine [Clonidine] 0.1 mg TD EVERY 7TH DAY 03/02/22 Hydrocodone Bit/Acetaminophen [[place] 7.5-325 Tablet] 1 tab PO Q6HP PRN 06/26/22 Trazodone [Desyrel*] 200 mg PO BEDTIME PRN 06/26/22 Aspirin [Aspirin EC 81 MG] 81 mg PO DAILY #30 tab 06/27/22 Atorvastatin Calcium [Lipitor] 40 mg PO BEDTIME #30 tab 06/27/22 Furosemide [Lasix*] 40 mg PO DAILY #30 tab 06/27/22 lisinopriL [Lisinopril] 10 mg PO DAILY 08/10/22 - Past Medical/Surgical History Diabetic: No -: Hypertension -: GERD -: Aortic stenosis -: Congestive Heart Failure -: Osteoporosis -: Hip surgery -: Gastric bypass -: D&C -: Hysterectomy Psychosocial/ Personal History: Patient lives at home alone. - Family History Father Medical History: Diabetes Brother Medical History: Diabetes Sister Medical History: Diabetes Mother Medical History: Other (see notes) Notes: Dementia - Social History Alcohol use: Yes CD- Drugs: No Caffeine use: Yes Place of Residence: Home Review of Systems General: Weakness Respiratory: Shortness of Breath Physical Examination Temp Pulse Resp BP Pulse Ox 97.8 F 82 18 145/86 H 95 08/10/22 08:00 08/10/22 08:00 08/10/22 08:00 08/10/22 08:00 08/10/22 08:00 General: Alert, In no apparent distress, Oriented x3 Respiratory: Diminished (Managed air entry), Crackles/rales (Crackles at the ba ses) Cardiovascular: No edema, Regular rate/rhythm, Normal S1 S2 Laboratory Data (last 24 hrs) 08/09/22 21:55: PT 12.4, INR 1.13 08/09/22 21:55: Sodium 140, Potassium 5.3 H, BUN 45 H, Creatinine 1.36 H, Glucose 146 H, Magnesium 2.4, Total Bilirubin 0.6, AST 35, ALT 14, Alkaline Phosphatase 71 08/09/22 21:05: WBC 7.50, Hgb 11.8 L, Hct 36.5, Plt Count 204 - Problems (1) Acute on chronic diastolic heart failure Current Visit: Yes Status: Acute Plan: Patient is 77 years of age with a history of diastolic heart failure admitted with worsening shortness of breath chest x-ray consistent with heart failure history s/p right-sided thoracentesis evidence of sepsis normal white count has chronic renal failure there is no DVT very hypoxic on admission cardiac catheterization did show some evidence of coronary artery disease troponins are probably elevated from her heart failure agree with IV Lasix vital signs satisfactory patient is afebrile
--- NOTE | 2022-08-10 14:37 | RAD REPORT ---
EXAM DESCRIPTION: US - Extrem Venous W Toma Karsten - 08/09/2022 11:23 pm CLINICAL HISTORY: The patient is 77 years old and is Female; Pain TECHNIQUE: Real-time duplex ultrasound scan of the bilateral lower extremity veins integrating B-mod e two-dimensional vascular structure, Doppler spectral analysis, color flow Doppler imaging and compr ession. COMPARISON: No relevant prior studies available. FINDINGS: Right deep veins: Unremarkable. No DVT in the visualized common femoral, femoral, or p opliteal veins. The veins demonstrate normal color flow, are normally compressible where visualized , with normal phasic flow and/or augmentation response. Left deep veins: Unremarkable. No DVT in the visualized common femoral, femoral, or popliteal veins. The veins demonstrate normal color flow, are normally compressible where visualized, with no rmal phasic flow and/or augmentation response. Soft tissues: No acute findings. IMPRESSION: No evidence of DVT in the bilateral lower extremity veins. Electronically signed by: Juan Bustos MD 08/09/2022 11:41 PM JIG GRINDER SET UP OPERATOR Due to temporary technical issues with the PACS/Fluency reporting system, reports are being signed by the in house radiologists without review as a courtesy to insure prompt reporting. The interpreting radiologist is fully responsible for the content of the report.
[2022-08-10 14:39] LABS: Body Fluid Source PLEURAL
[2022-08-10 14:40] LABS: Appearance TURBID (CLEAR); Body Fluid WBC 153 /mm^3; Color of fluid Brown (COLORLESS)
--- NOTE | 2022-08-10 15:04 | RAD REPORT ---
EXAM DESCRIPTION: CT - Thorax Kiko Arteaga - 08/10/2022 7:06 am CLINICAL HISTORY: The patient is 77 years old and is Female; DYSPNEA TECHNIQUE: Axial computed tomography images of the chest without intravenous contrast. Sagittal an d coronal reformatted images were created and reviewed. This CT exam was performed using one or mor e of the following dose reduction techniques: automated exposure control, adjustment of the mA and/ or kV according to patient size, and/or use of iterative reconstruction technique. COMPARISON: No relevant prior studies available. FINDINGS: LUNGS: Groundglass opacity and consolidation within the right lower lobe is present. Com pressive atelectasis within the left lower lobe and to a lesser extent the lingula is noted. PLEURAL SPACE: Moderate to large bilateral pleural effusions are present. No pneumothorax. HEART: The heart is enlarged. There is no pericardial effusion. THYROID: A heterogeneous 3.4 x 3.1 cm left thyroid nodule is present. BONES/JOINTS: No acute fracture. SOFT TISSUES: The soft tissues are normal. VASCULATURE: Atherosclerosis of the aorta is present. No thoracic aortic aneurysm. LYMPH NODES: Unremarkable. No enlarged lymph nodes. IMPRESSION: 1. Moderate to large bilateral pleural effusions with suggestion of right lower lobe p neumonia and associated areas of atelectasis within the left lower lobe and lingula. 2. Large left thyroid nodule. Recommend thyroid ultrasound follow-up. Electronically signed by: Martita Mir MD 08/10/2022 12:15 AM DISTANCE LEARNING PROGRAM COORDINATOR Due to temporary technical issues with the PACS/Fluency reporting system, reports are being signed by the in house radiologists without review as a courtesy to insure prompt reporting. The interpreting radiologist is fully responsible for the content of the report.
[2022-08-10] MEDS ORDERED: ENOXAPARIN 60 MG/0.6 ML SQ SCH (21:00)
[2022-08-10] MEDS: ATORVASTATIN 40 MG TAB PO SCH (21:14)
[2022-08-11] MEDS: HYDROCODONE/APAP 7.5/325 MG TAB PO PRN (05:24)
[2022-08-11 06:16] LABS: Absolute Lymphocytes (CBC) 1.1 K/uL (0.7-4.9); Lymphocytes % 8.4 % (15.3-44.8); MCV 92.1 fL (80-100); MPV 9.7 fL (7.6-11.3); RBC Red Blood Cell Count 3.37 M/uL (3.86-4.86)
[2022-08-11 06:21] LABS: Magnesium 2.1 mg/dL (1.6-2.4); Potassium 5.3 mmol/L (3.5-5.1)
[2022-08-11] MEDS: lisinopriL 10 MG TAB PO SCH ×2 (09:00→10:44)
[2022-08-11] MEDS: carvediloL 25 MG TAB PO SCH ×3 (09:00→20:21)
[2022-08-11] MEDS: FUROSEMIDE 40 MG/4 ML VIAL IV SCH ×2 (09:20→17:26)
[2022-08-11] MEDS: CARBIDOPA/LEVODOPA 25/100 TAB PO SCH ×4 (09:21→17:00)
[2022-08-11] MEDS: PANTOPRAZOLE 40MG TABLET PO SCH (09:21)
[2022-08-11] MEDS: ASPIRIN EC 81 MG TAB PO SCH (09:22)
--- NOTE | 2022-08-11 11:46 | P.PN ---
Subjective Date of Service: 08/11/22 Chief Complaint: CHF Exacerbation Patient states she feels much better today. She denies shortness of breath and has been weaned off oxygen. No fever. She is also tolerating her diet. Physical Examination - Vital Signs Temperature: 97.0 F Blood Pressure: 117/59 Pulse: 69 Respirations: 16 Pulse Ox (%): 95 Assessment And Plan - Current Problems (Diagnosis) (1) Bilateral pleural effusion Current Visit: Yes Status: Acute (2) Acute on chronic diastolic heart failure Current Visit: Yes Status: Acute (3) Acute respiratory failure with hypoxia Current Visit: Yes Status: Acute (4) Non-STEMI (non-ST elevated myocardial infarction) Current Visit: No Status: Acute (5) Coronary artery disease Current Visit: Yes Status: Chronic Qualifiers: Coronary Disease-Associated Artery/Lesion type: [place] artery [place] vs. transplanted heart: [place] heart Associated angina: without angina Qualified Code(s): I25.10 - Atherosclerotic heart disease of [place] coronary artery without angina pectoris (6) Hypertension Current Visit: Yes Status: Chronic Qualifiers: Hypertension type: primary hypertension Qualified Code(s): I10 - Essential (primary) hypertension - Plan Physical Exam General: Alert, In no apparent distress HEENT: Atraumatic, EOMI, Sclerae nonicteric Neck: Supple, 2+ carotid pulse no bruit, No LAD Respiratory: Clear to auscultation bilaterally Cardiovascular: Regular rate/rhythm, Normal S1 S2 Gastrointestinal: Normal bowel sounds, No tenderness Musculoskeletal: No tenderness Integumentary: No rashes Neurological: Normal speech, Normal affect. No focal motor deficit. Plan Status post thoracentesis, pleural fluid noted to be cloudy with cell count demonstrating lymphocytic predominance. Bacterial infection is not likely. Doubt pneumonia. Continue IV Lasix. Follow-up pleural fluid biochemistry. Pulmonary input appreciated. Patient seen by cardiology for elevated troponin. Aspirin and Lipitor. Most recent echocardiogram was 2 months ago which showed normal EF but mitral regurgitation. Cardiology to follow. Activity as tolerated Patient is currently tolerating room air. Acute respiratory failure resolved.
[2022-08-11] MEDS: HEPARIN/D5W 25,000 UNIT/500 ML BAG IV PRN (14:09)
--- NOTE | 2022-08-11 14:48 | RAD REPORT ---
EXAM DESCRIPTION: RAD - Chest Single View - 08/11/2022 2:35 pm CLINICAL HISTORY: S/p thoracentesis COMPARISON: Chest Single View dated 08/10/2022; Chest Single View dated 08/09/2022; Chest Single View da pascual 06/25/2022; Chest Pa And Lat (2 Views) dated 03/01/2022; Thorax Wo Con dated 08/09/2022; Thoracentes is w/ US Guide dated 08/10/2022 FINDINGS: Lines: None. Lungs: Left basilar opacity which is similar. Pleural: Small left effusion. Difficult to exclude a small right effusion is well. Cardiac: Similar size and configuration. Mediastinum: Within normal limits. Bones: No acute fractures. Other: None IMPRESSION: Small left pleural effusion and likely underlying atelectasis. Probable small right pleu ral effusion. Edema has improved since 08/09/2022. No pneumothorax.
[2022-08-11] MEDS: ATORVASTATIN 40 MG TAB PO SCH (20:21)
[2022-08-11] MEDS ORDERED: Levofloxacin 750mg IV 750 MG/150 ML BAG IV SCH (21:00)
[2022-08-12 06:15] LABS: Absolute Lymphocytes (CBC) 1.9 K/uL (0.7-4.9); MCV 91.7 fL (80-100); MPV 9.8 fL (7.6-11.3); RBC Red Blood Cell Count 3.38 M/uL (3.86-4.86)
[2022-08-12] MEDS: lisinopriL 10 MG TAB PO SCH (09:00)
[2022-08-12] MEDS: FUROSEMIDE 40 MG/4 ML VIAL IV SCH ×2 (09:56→17:00)
[2022-08-12] MEDS: PANTOPRAZOLE 40MG TABLET PO SCH (09:57)
[2022-08-12] MEDS: CARBIDOPA/LEVODOPA 25/100 TAB PO SCH ×3 (09:57→17:14)
[2022-08-12] MEDS: ASPIRIN EC 81 MG TAB PO SCH (09:57)
[2022-08-12] MEDS: carvediloL 25 MG TAB PO SCH ×2 (09:59→20:03)
--- NOTE | 2022-08-12 17:07 | P.PN ---
Subjective Date of Service: 08/12/22 Chief Complaint: CHF Exacerbation Patient reports poor sleep, otherwise no new complaint. She denies shortness of breath. She has been tolerating room air. She states she is ambulatory. Physical Examination - Vital Signs Temperature: 97.2 F Blood Pressure: 102/51 Pulse: 60 Respirations: 16 Pulse Ox (%): 99 Assessment And Plan - Current Problems (Diagnosis) (1) Bilateral pleural effusion Current Visit: Yes Status: Acute (2) Acute on chronic diastolic heart failure Current Visit: Yes Status: Acute (3) Acute respiratory failure with hypoxia Current Visit: Yes Status: Acute (4) Non-STEMI (non-ST elevated myocardial infarction) Current Visit: No Status: Acute (5) Coronary artery disease Current Visit: Yes Status: Chronic Qualifiers: Coronary Disease-Associated Artery/Lesion type: [place] artery [place] vs. transplanted heart: [place] heart Associated angina: without angina Qualified Code(s): I25.10 - Atherosclerotic heart disease of [place] coronary artery without angina pectoris (6) Hypertension Current Visit: Yes Status: Chronic Qualifiers: Hypertension type: primary hypertension Qualified Code(s): I10 - Essential (primary) hypertension - Plan Physical Exam General: Alert, In no apparent distress HEENT: Atraumatic, EOMI, Sclerae nonicteric Neck: Supple, 2+ carotid pulse no bruit, No LAD Respiratory: Clear to auscultation bilaterally Cardiovascular: Regular rate/rhythm, Normal S1 S2 Gastrointestinal: Normal bowel sounds, No tenderness Musculoskeletal: No tenderness Integumentary: No rashes Neurological: Normal speech, Normal affect. No focal motor deficit. Plan Status post thoracentesis, pleural fluid noted to be cloudy with cell count demonstrating lymphocytic predominance. Bacterial infection is not likely. Doubt pneumonia. Patient significant diuresis with the IV Lasix. Bilateral pleural effusion almost resolved. Transition IV Lasix to oral Pleural fluid biochemistry is still pending. Pulmonary seen the patient Patient seen by cardiology for elevated troponin. Currently on heparin drip. Cardiology to follow for further recommendation. Continue aspirin and Lipitor. Most recent echocardiogram done 2 months ago showed normal EF but mitral regurgitation. Activity as tolerated. \
[2022-08-12] MEDS: HYDROCODONE/APAP 7.5/325 MG TAB PO PRN (17:14)
[2022-08-12] MEDS: ATORVASTATIN 40 MG TAB PO SCH (20:06)
[2022-08-12] MEDS: HEPARIN/D5W 25,000 UNIT/500 ML BAG IV PRN (23:32)
[2022-08-13 04:31] LABS: Absolute Lymphocytes (CBC) 1.8 K/uL (0.7-4.9); Lymphocytes % 29.8 % (15.3-44.8); MCV 91.3 fL (80-100); MPV 9.8 fL (7.6-11.3); RBC Red Blood Cell Count 3.51 M/uL (3.86-4.86)
[2022-08-13] MEDS: FUROSEMIDE 40 MG TABLET PO SCH ×2 (08:50→16:57)
[2022-08-13] MEDS: CARBIDOPA/LEVODOPA 25/100 TAB PO SCH ×3 (08:51→16:59)
[2022-08-13] MEDS: PANTOPRAZOLE 40MG TABLET PO SCH (08:51)
[2022-08-13] MEDS: ASPIRIN EC 81 MG TAB PO SCH (08:52)
[2022-08-13] MEDS: carvediloL 25 MG TAB PO SCH ×2 (08:54→21:00)
[2022-08-13] MEDS: lisinopriL 10 MG TAB PO SCH (08:54)
--- NOTE | 2022-08-13 16:21 | P.PN ---
Subjective Date of Service: 08/13/22 Chief Complaint: CHF Exacerbation Patient denies any complaint today. She denies any shortness of breath. Physical Examination - Vital Signs Temperature: 97.2 F Blood Pressure: 113/58 Pulse: 65 Respirations: 18 Pulse Ox (%): 98 Assessment And Plan - Current Problems (Diagnosis) (1) Bilateral pleural effusion Current Visit: Yes Status: Acute (2) Acute on chronic diastolic heart failure Current Visit: Yes Status: Acute (3) Acute respiratory failure with hypoxia Current Visit: Yes Status: Acute (4) Non-STEMI (non-ST elevated myocardial infarction) Current Visit: No Status: Acute (5) Coronary artery disease Current Visit: Yes Status: Chronic Qualifiers: Coronary Disease-Associated Artery/Lesion type: [place] artery [place] vs. transplanted heart: [place] heart Associated angina: without angina Qualified Code(s): I25.10 - Atherosclerotic heart disease of [place] coronary artery without angina pectoris (6) Hypertension Current Visit: Yes Status: Chronic Qualifiers: Hypertension type: primary hypertension Qualified Code(s): I10 - Essential (primary) hypertension - Plan Physical Exam General: Alert, In no apparent distress HEENT: Atraumatic, EOMI, Sclerae nonicteric Neck: Supple, 2+ carotid pulse no bruit, No LAD Respiratory: Clear to auscultation bilaterally Cardiovascular: Regular rate/rhythm, Normal S1 S2 Gastrointestinal: Normal bowel sounds, No tenderness Musculoskeletal: No tenderness Integumentary: No rashes Neurological: Normal speech, Normal affect. No focal motor deficit. Plan Status post thoracentesis, pleural fluid noted to be cloudy with cell count demonstrating lymphocytic predominance. Bacterial infection is not likely. Bilateral pleural effusion almost resolved with IV Lasix. Continue diuresis and with oral Lasix. Pleural fluid biochemistry is still pending. Patient seen by cardiology for elevated troponin. Patient completed 72 hours of heparin drip. Continue aspirin and Lipitor. Most recent echocardiogram done 2 months ago showed normal EF but significant mitral regurgitation. Cardiology recommending transfer to tertiary hospital for mitral valve surgery.
[2022-08-13 20:14] LABS: LD, PLEURAL FLUID 96 U/L; TOTAL PROTEIN, PLEURAL FLUID <3.0 g/dL
[2022-08-13 20:30] LABS: CHOLESTEROL, PLEURAL FLUID REPORT
[2022-08-13] MEDS: ATORVASTATIN 40 MG TAB PO SCH (21:24)
[2022-08-14] MEDS: HYDROCODONE/APAP 7.5/325 MG TAB PO PRN ×2 (00:08→06:35)
[2022-08-14] MEDS: PANTOPRAZOLE 40MG TABLET PO SCH (09:11)
[2022-08-14] MEDS: ASPIRIN EC 81 MG TAB PO SCH (09:12)
[2022-08-14] MEDS: CARBIDOPA/LEVODOPA 25/100 TAB PO SCH ×3 (09:12→17:00)
[2022-08-14] MEDS: carvediloL 25 MG TAB PO SCH ×2 (09:12→20:19)
[2022-08-14] MEDS: FUROSEMIDE 40 MG TABLET PO SCH ×2 (09:12→17:00)
[2022-08-14] MEDS: lisinopriL 10 MG TAB PO SCH (09:13)
[2022-08-14 11:39] LABS: ALBUMIN, PLEURAL FLUID 1.3 g/dL
--- NOTE | 2022-08-14 14:12 | P.PN ---
Subjective Date of Service: 08/14/22 Chief Complaint: CHF Exacerbation Patient has no new complaint. She denies any shortness of breath. Physical Examination - Vital Signs Temperature: 97.0 F Blood Pressure: 90/62 Pulse: 67 Respirations: 14 Pulse Ox (%): 99 Assessment And Plan - Current Problems (Diagnosis) (1) Bilateral pleural effusion Current Visit: Yes Status: Acute (2) Acute on chronic diastolic heart failure Current Visit: Yes Status: Acute (3) Acute respiratory failure with hypoxia Current Visit: Yes Status: Acute (4) Non-STEMI (non-ST elevated myocardial infarction) Current Visit: No Status: Acute (5) Coronary artery disease Current Visit: Yes Status: Chronic Qualifiers: Coronary Disease-Associated Artery/Lesion type: [place] artery [place] vs. transplanted heart: [place] heart Associated angina: without angina Qualified Code(s): I25.10 - Atherosclerotic heart disease of [place] coronary artery without angina pectoris (6) Hypertension Current Visit: Yes Status: Chronic Qualifiers: Hypertension type: primary hypertension Qualified Code(s): I10 - Essential (primary) hypertension - Plan Physical Exam General: Alert, In no apparent distress Neck: No elevated JVD. Respiratory: Clear to auscultation bilaterally Cardiovascular: Regular rate/rhythm, Normal S1 S2 Gastrointestinal: Normal bowel sounds, No tenderness Musculoskeletal: No tenderness Integumentary: No rashes Neurological: No focal motor deficit. Plan Status post thoracentesis, pleural fluid noted to be cloudy with cell count demonstrating lymphocytic predominance. Bacterial infection is not likely. Bilateral pleural effusion almost resolved with IV Lasix. Continue diuresis and with oral Lasix. Renal function has been stable with diuresis. Pleural fluid biochemistry suggest transudative fluid Patient seen by cardiology Dr. Mcpherson for elevated troponin and CHF. Patient completed 72 hours of heparin drip. Continue aspirin and Lipitor. Most recent echocardiogram done 2 months ago showed normal EF but significant mitral regurgitation. Cardiology recommended transfer to tertiary hospital for mitral valve surgery. Transfer to [facility] initiated.
[2022-08-14] MEDS: ATORVASTATIN 40 MG TAB PO SCH (20:22)
[2022-08-15 04:00] LABS: Magnesium 2.2 mg/dL (1.6-2.4); Potassium 4.3 mmol/L (3.5-5.1)
[2022-08-15] MEDS: HYDROCODONE/APAP 7.5/325 MG TAB PO PRN (08:43)
[2022-08-15] MEDS: lisinopriL 10 MG TAB PO SCH (08:43)
[2022-08-15] MEDS: PANTOPRAZOLE 40MG TABLET PO SCH (08:44)
[2022-08-15] MEDS: carvediloL 25 MG TAB PO SCH ×2 (08:44→21:11)
[2022-08-15] MEDS: FUROSEMIDE 40 MG TABLET PO SCH (08:44)
[2022-08-15] MEDS: ASPIRIN EC 81 MG TAB PO SCH (08:45)
[2022-08-15] MEDS: CARBIDOPA/LEVODOPA 25/100 TAB PO SCH ×3 (08:45→17:00)
--- NOTE | 2022-08-15 11:41 | RAD REPORT ---
EXAM DESCRIPTION: CT - Head Brain Wo Cont - 08/15/2022 11:34 am CLINICAL HISTORY: CODE, AMS COMPARISON: No comparisons TECHNIQUE: All CT scans are performed using dose optimization technique as appropriate and may inclu de automated exposure control or mA/KV adjustment according to patient size. FINDINGS: No intracranial hemorrhage, hydrocephalus or extra-axial fluid collection.No areas of brai n edema or evidence of midline shift. Chronic small vessel ischemic changes. The paranasal sinuses and mastoids are clear. The calvarium is intact. IMPRESSION: No acute intracranial abnormality.
[2022-08-15] MEDS ORDERED: NA CHLORIDE 0.9% 1,000 ML IV SCH (14:00)
[2022-08-15 14:45] VITALS: O2SAT 100
--- NOTE | 2022-08-15 16:37 | P.PN ---
Date of Service: 08/15/22 Subjective: kwame ta called on patient this morning; ~1-2 hrs after morning meds she was found slumped over on bed, unresponsive. nursing staff unable to feel pulse CPR initiated, patient had quick ROSC. Glc ok, BP noted to be low 70s/40s, HR: 50s, sinus. patient received antihypertensives, Lasix, pain medication She was given 250 NS bolus with improvement of her blood pressure to 90s/50s, and improvement of her mentation She was noted to have some slight slurred speech and somewhat appearance of right facial droop, she was sent for CT, which was negative for acute CVA Upon arrival back to her room from CT, her systolic blood pressure was over 100, and she was back to her normal speech, no facial droop ROS: 10 point ROS unable to fully obtain during code Physical exam after code GEN: Alert, oriented, mmild somnolence HEENT: Normal conjunctiva, sclera anicteric CV: Regular rate and rhythm, no edema Pulm: Nonlabored respirations, diminished bilaterally ABD: Soft, nontender, nondistended Integumentary: No rashes Neuro: Normal speech, normal affect, generalized weakness, no focal defecit Problem List Bilateral pleural effusion Acute on chronic diastolic CHF exacerbation Acute respiratory failure with hypoxemia secondary to CHF exacerbation NSTEMI CAD HTN GERD moderate mitral stenosis and regurgitation Mild aortic stenosis and insufficiency Mild tricuspid regurgitation pulmonary hypertension acute CHF Exacerbation with hypoxemia s/p thoracentesis ongoing diuretics blood pressure low at times episode occurred 08/15, likely secondary to multiple anti-hypertensives / lasix / pain medication hold anti-hypertensives/lasix for now improved after 250 cc NS bolus, running additional 250cc over next 2.5hrs updated Cardiology ~2 hrs after kwame called, [facility] transfer center called with available bed, unfortunately patient was switched over to ICU bed status for close monitoring of vitals. she did respond initially to fluids; but would benefit from close monitoring do not suspect stroke at this time patient's symptoms secondary to hypotension Patient seen by cardiology Dr. Mcpherson for elevated troponin and CHF. Patient completed 72 hours of heparin drip. Continue aspirin and Lipitor. Most recent echocardiogram done 2 months ago showed normal EF but significant mitral stenosis and regurgitation. Cardiology recommended transfer to tertiary hospital for mitral valve surgery. Transfer to [facility] initiated. Code: Full Dispo: transfer initiated to [facility] pending bed; now held secondary to low blood pressure possibly resume transfer later this afternoon if BP remains stable after fluid bolus Time Spent Managing Pts Care (In Minutes): 35 TTE (06/28/22) NORMAL LEFT VENTRICULAR EJECTION FRACTION OF GREATER THAN 60% WITH NORMAL WALL MOTION 2. SEVERE MITRAL ANNULAR CALCIFICATION WITH MODERATE MITRAL STENOSIS AND MODERATE MITRAL REGURGITATION 3. CALCIFICATION AORTIC VALVE WITH MILD AORTIC STENOSIS AND MILD AORTIC INSUFFICIENCY 4. MILD TRICUSPID REGURGITATION 5. LEFT ATRIAL ENLARGEMENT 6. MODERATE CONCENTRIC LEFT VENTRICULAR HYPERTROPHY 7. MODERATE DIASTOLIC DYSFUNCTION 8. PULMONARY HYPERTENSION WITH RIGHT VENTRICULAR SYSTOLIC PRESSURE OF 55-60 mmHg
[2022-08-15 17:06] LABS: Absolute Lymphocytes (CBC) 0.5 K/uL (0.7-4.9); Hematocrit 35.3 % (36.0-45.0); Lymphocytes % 5.4 % (15.3-44.8); MCV 92.2 fL (80-100); MPV 9.3 fL (7.6-11.3); RBC Red Blood Cell Count 3.83 M/uL (3.86-4.86)
[2022-08-15] MEDS ORDERED: ATROPINE SULF 1 MG/10 ML SYR IV ONE (18:47)
[2022-08-15] MEDS ORDERED: EPINEPHrine 1 MG/10 ML SYR IV ONE (18:47)
[2022-08-15] MEDS ORDERED: NA CHLORIDE 0.9% 1,000 ML IV ONE (18:49)
[2022-08-15] MEDS: ATORVASTATIN 40 MG TAB PO SCH (21:11)
[2022-08-15 21:52] LABS: SARS-COV-2 RT PCR NEGATIVE (NEGATIVE)
[2022-08-16 01:10] VITALS: BP 122/63; TEMP 97
== END 2022-08-16 01:00 | disposition short-term general hospital (02) | DRG 280 ==
LOC: ER 20:47 → 2ND 08-10 00:46 → 3RD-ICU 08-15 13:35
PROVIDERS: ADMIT Internal Medicine; ATTEND Hospitalist
PROC: 0W9930Z Drainage of Right Pleural Cavity with Drainage Device, Percutaneous Approach (ICD-10-PCS; principal; 2022-08-10)
PROC: 5A12012 Performance of Cardiac Output, Single, Manual (ICD-10-PCS; 2022-08-15)
DX: I13.0 Hypertensive heart and chronic kidney disease with heart failure and stage 1 through stage 4 chronic kidney disease, or unspecified chronic kidney disease (principal); I21.4 Non-ST elevation (NSTEMI) myocardial infarction; I50.33 Acute on chronic diastolic (congestive) heart failure; J96.01 Acute respiratory failure with hypoxia; J91.8 Pleural effusion in other conditions classified elsewhere; N18.30 Chronic kidney disease, stage 3 unspecified; E87.5 Hyperkalemia; K21.9 Gastro-esophageal reflux disease without esophagitis; I27.20 Pulmonary hypertension, unspecified; I95.9 Hypotension, unspecified; I08.3 Combined rheumatic disorders of mitral, aortic and tricuspid valves; I25.10 Atherosclerotic heart disease of native coronary artery without angina pectoris; Z88.0 Allergy status to penicillin; Z60.2 Problems related to living alone; Z91.14 Patient's other noncompliance with medication regimen; Z79.02 Long term (current) use of antithrombotics/antiplatelets; Z79.82 Long term (current) use of aspirin; Z98.84 Bariatric surgery status; Z79.899 Other long term (current) drug therapy; Z90.710 Acquired absence of both cervix and uterus; Z20.822 Contact with and (suspected) exposure to COVID-19
CPT/HCPCS: 0240U; 0241U; 32555; 36415; 70450; 71045; 71250; 80048; 80061; 80076; 81003; 82042; 82805; 82947; 83605; 83615; 83735; 83880; 84100; 84157; 84311; 84484; 85025; 85610; 85730; 86850; 86900; 86901; 87040; 87070; 88305; 88312; 89050; 93005; 93970; 94010; 94760; 96365; 96366; 96372; 96375; 99285; J0171; J0461; J0610; J1644; J1650; J1815; J1940; J2543; J2930; J7030; J7614; J7644; U0003